=== PATIENT | female | born 1990 | race Caucasian/White ===

== ENCOUNTER → 2016-05-23 | Outpatient (CLI) | payer OTHER ==
[~2016-05-23] MED LIST: MULT-506 PO; NORGTAB50 PO
--- NOTE | 2016-05-23 13:30 | MAMMOGRAPHY REPORT ---
ULTRASOUND OF BOTH BREASTS: 05/23/2016 CLINICAL HISTORY: The patient reports a palpable left breast lump which feels smaller since when she first felt it approximately 2-3 weeks ago. She also felt a smaller right breast lump which is less prominent today. COMPARISON: No prior exams were available for comparison. TECHNIQUE: Real-time targeted ultrasound of both breasts was performed. FINDINGS: Real-time, high resolution targeted ultrasound was performed of the area of the palpable lump pointe d out by the patient, in the left breast at 2 to 3:00 subareolar region. At the site of the palpabl e lump there is a superficially located oval hypoechoic circumscribed parallel mass which measures 8 x 3 x 7 mm. The differential includes a fibroadenoma versus a complicated cyst. Targeted ultrasound was also performed of the area of the palpable lump in the right 6:00 subareolar region. Multiple normal-sized ducts are seen in this region, with no suspicious masses or other rodriguez spicious sonographic abnormalities evident. IMPRESSION: ACR BI-RADS CATEGORY 4A: LOW SUSPICION FOR MALIGNANCY - FOLLOW-UP RECOMMENDED 1. Oval hypoechoic 8 mm mass at the site of the palpable left breast lump, in the 2 to 3:00 subareo lar region. The patient reports that the lump feels smaller in size than when she first felt it. T he differential includes a complicated cyst versus a solid mass such as a fibroadenoma. Recommend u ltrasound-guided core needle biopsy for further evaluation; this could be scheduled after a short fo llow-up of 2-4 weeks to see if the mass decreases in size or resolves, given that the patient felt t hat it was decreasing in size. 2. No suspicious sonographic abnormality at the site of the palpable right breast lump. Recommend clinical follow-up. A phone call was made to the physician's office to confirm faxed results were received. The patient was verbally notified of the results. She tentatively scheduled the biopsy before leaving the depa rtment. Shelly Santana M.D. ah/:05/23/2016 09:45:41 Attending Technologist: Dilma Kim RT(R)(M), [facility] Retouching Operator: Shelly Santana MD, [facility] letter sent: Abnormal 4/5 BI-RADS Code: ACR BI-RADS Category 4A: Low Suspicion For Malignancy
== END | disposition home or self-care (01) ==
LOC: C.MAMM 08:44
PROVIDERS: ATTEND Obstetrics & Gynecology
DX: N63 Unspecified lump in breast (principal)

== ENCOUNTER → 2016-06-24 | Outpatient (CLI) | payer OTHER ==
--- NOTE | 2016-06-24 10:53 | Discharge Instructions ---
Discharge Instructions Procedure Procedure Date: Jun 24, 2016. Reason for visit: Left Mass. Discharge Discharge Date: Jun 24, 2016. Discharge Diagnosis: post left breast ultrasound guided core biopsy Instructions Activity Recommendations: Additional Limitations (see below) Return to School/Work: no limitations Recommended Home Diet: No Limitations Provider Instructions: ACTIVITY RECOMMENDATIONS: * No lifting, pushing, pulling or exercising the affected side for three days. RETURN TO SCHOOL/WORK: * You may return to work/school after the procedure, but do not perform any strenuous activities for 24 to 48 hours. MEDICATIONS: * Tylenol (two 325 mg) every four to six hours if needed for mild pain (if not allergic to Tylenol). DIET: * Resume previous diet. SPECIAL CARE INSTRUCTIONS: * Keep biopsy site dry for 24 hours. May shower after 24 hours, but do not soak (bathe) incision. * May remove Tegaderm (plastic patch) tomorrow AFTER showering. * Leave the steri-strips on for one week. Allow the steri-strips to fall off by themselves. If not off after one week, you may remove them. You may place a Bandaid crosswise over the strips, if desired. * Apply ice 10 minutes on and 10 minutes off as needed. * Wear a bra at bedtime to sleep more comfortably for 2-3 days. * Your referring physician should have the results after approximately 5 to 7 business days. * Call for unusual bleeding, fever, drainage, etc or if you have any questions call [phone] during normal business hours or after hours call Dr Mosley, . FOLLOW UP VISIT: Follow-up with Referring Physician as scheduled. Allergies Coded Allergies: No Known Allergies (Unverified , 04/26/14) Rick Patel Recommendations: Call your doctor if: * Temperature above 101 degrees * Pain not relieved by pain medicine ordered * There is increased drainage or redness from any incision * You have any unanswered questions or concerns. Your Doctors Instructions noted above were prepared by provider Adriana Mosley. Patient Signature Section: Patient Instructions Signature Page Romelia Deng Patient (or Guardian) Signature/Date: I have read and understand the instructions given to me by my caregivers. Caregiver/RN/Doctor Signature/Date: The above-named patient and/or guardian has received patient instructions on this date. + Original Patient Signature Page (only) stays with chart. Please make copy for patient.
--- NOTE | 2016-06-26 08:05 | MAMMOGRAPHY REPORT ---
ULTRASOUND GUIDED BIOPSY LEFT BREAST: 06/24/2016 CLINICAL HISTORY: Solid appearing palpable mass in the 2:00 to 3:00 retroareolar left breast. Donna avendaño presents for repeat evaluation and possible ultrasound guided core biopsy. COMPARISON: Comparison is made to exam dated: 05/23/2016 ultrasound - [facility]. PATIENT CONSENT: The procedure, risks and benefits were discussed with the patient and informed writ ten consent was obtained. Specific risks to this procedure include: bleeding, infection, puncture of adjacent structure, nontarget biopsy, sampling error and medication reaction. PROCEDURE DESCRIPTION: First repeat targeted ultrasound was performed in the area of palpable concer n in the 2:00 to 3:00 retroareolar left breast in the area of palpable lump pointed out by the patie nt. A solid hypoechoic lobulated circumscribed mass is again identified. It measures 7.8 x 3.8 x 7 .4 mm, and has not significantly changed in size comparing to the prior measurements which were 8.4 x 3.0 x 7.2 mm. Therefore plan to proceed with ultrasound-guided core needle biopsy. A time out was performed and the left breast was agreed as the site of biopsy. The skin was prepped and draped in the usual sterile fashion. The solid palpable mass in the 2:00 periareolar subareolar left breast was chosen as the target for biopsy. Subcutaneous and intraparenchymal 1% buffered lidoc donovan without epinephrine was administered as local anesthesia. A skin incision was made. Through th e incision, 4 samples were taken with a 14 gauge Achieve biopsy device. Given the superficial/subde rmal location of the mass, the decision was made not to place a biopsy marker, particularly given th at it is also a palpable abnormality so the patient does not feel the biopsy marker clip under her s kin. Hemostasis was achieved after manual compression. The patient tolerated the procedure well and there was no immediate complication. She left the department in satisfactory condition. The sampl es were sent to the pathology department in an appropriately labeled container. Post procedure mammography was deferred given the patient's age. IMPRESSION: ULTRASOUND GUIDED BIOPSY Status post ultrasound guided core needle biopsy of a solid palpable subdermal mass in the 2:00 left breast. No biopsy marker clip was placed at the site. The patient will receive notification of the biopsy results from her referring physician. Adriana Mosley M.D. ay/:06/24/2016 11:47:23 Cartographic Technician: Dr. Adriana Mosley, [facility]
== END | disposition home or self-care (01) ==
LOC: C.MAMM 10:01
PROVIDERS: ATTEND Obstetrics & Gynecology
DX: D24.2 Benign neoplasm of left breast (principal)

== ENCOUNTER 2017-06-07 19:08 | Emergency (ER) | payer OTHER ==
[~2017-06-07] VITALS: Ht 165.1 cm; Wt 63.0 kg
[2017-06-07 19:13] VITALS: BP 137/87; TEMP 36.7; Ht 165.1 cm; Wt 63.0 kg
[2017-06-07] MEDS ORDERED: FMR25 PO (19:50)
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
[2017-06-07 20:48] VITALS: PULSE 106; O2SAT 97
== END 2017-06-07 20:49 | disposition home or self-care (01) ==
LOC: C.EDB 19:09 → C.EDD 20:49
DX: M54.2 Cervicalgia (principal); V87.8XXA Person injured in other specified noncollision transport accidents involving motor vehicle (traffic), initial encounter; Z83.6 Family history of other diseases of the respiratory system

== ENCOUNTER → 2017-08-08 | Outpatient (CLI) | payer OTHER ==
[~2017-08-08] MED LIST changes: +FMR25 PO; -NORGTAB50 PO
[2017-08-08 14:36] LABS: BASO % 0.4 %; BASO ABS # 0.02 K/uL (0-0.2); EOS % 2.9 %; EOS ABS # 0.16 K/uL (0-0.5); HEMATOCRIT 39.1 % (37-47); HEMOGLOBIN 13.4 g/dL (12.0-16.0); IG# 0.01 K/uL (0.00-0.02); LYMPH % 34.5 %; LYMPH ABS # 1.93 K/uL (1.2-3.4); MEAN CELL VOLUME 87.9 fL (80-100); MEAN CORPUSCULAR HEMOGLOBIN 30.1 pg (25-34); MEAN CORPUSCULAR HGB CONC 34.3 g/dl (32-36); MONO ABS # 0.39 K/uL (0.11-0.59); NEUT ABS # 3.09 K/uL (1.4-6.5); PLATELET COUNT 279 K/uL (130-400); RED CELL DISTRIBUTION WIDTH CV 12.6 % (11.5-14.5); RED CELL DISTRIBUTION WIDTH SD 40.6 fL (36.4-46.3)
[2017-08-08 14:54] LABS: ALBUMIN 4.2 gm/dl (3.4-5.0); ALT/SGPT 25 U/L (12-78); AST/SGOT 16 U/L (15-37); BLOOD UREA NITROGEN 14 mg/dl (7-18); CALCIUM 9.1 mg/dl (8.5-10.1); CARBON DIOXIDE 27 mmol/L (21-32); CREATININE 0.95 mg/dl (0.60-1.20); GLUCOSE 94 mg/dl (70-99); POTASSIUM 4.1 mmol/L (3.5-5.1); SODIUM 138 mmol/L (136-145)
[2017-08-08 15:04] LABS: ALKALINE PHOSPHATASE 57 U/L (45-117); TOTAL PROTEIN 8.1 gm/dl (6.4-8.2)
== END | disposition home or self-care (01) ==
LOC: C.LAB1850 13:38
PROVIDERS: ATTEND Physician Assistant
DX: R53.83 Other fatigue (principal); R51 Headache

== ENCOUNTER → 2017-08-13 | Outpatient (CLI) | payer OTHER ==
--- NOTE | 2017-08-13 10:09 | DIAGNOSTIC IMAGING REPORT ---
HYSTEROSALPINGOGRAM CLINICAL HISTORY: Infertility testing. COMPARISON STUDY: No priors. FINDINGS: Fluoroscopic assistance was provided to the electronics instructor in performing a hysterosalpingogram. The uterine cavity distends normally. No filling defects are identified. There is normal filling of the fallopian tubes, with free spillage of contrast into pelvis bilaterally. Fluoroscopy time: 0.3 minutes. IMPRESSION: Unremarkable hysterosalpingogram. The fallopian tubes are patent bilaterally. Electronically signed by: Chris Wright M.D. 08/13/2017 10:08 AM Dictated Date/Time: 08/13/2017 10:07 AM
--- NOTE | 2017-08-13 12:32 | OPERATIVE REPORT ---
DATE OF OPERATION: 08/13/2017 PREOPERATIVE DIAGNOSIS: Infertility. POSTOPERATIVE DIAGNOSIS: Infertility. PROCEDURE: Hysterosalpingogram. SURGEON: Macie Trinh MD. ANESTHESIA: None. ESTIMATED BLOOD LOSS: None. DESCRIPTION OF PROCEDURE: The patient was identified in the radiology suite. Verbally and by bracelet, was confirmed that she was having a hysterosalpingogram. She was not instructed to take preoperative antibiotics. Her last menstrual period was 12 days ago. She was placed in a frog-legged position on the radiology table. A speculum was placed. The cervix was cleansed with Betadine x3. It was grasped with an Allis. The introducer was placed into the cervix. The radiologist was called for. The dye was placed through the uterus and into the tubes until adequate pictures were taken, and the procedure was terminated. There was no bleeding. All instruments were removed from the vagina. The patient tolerated the procedure well and was discharged home. I attest to the content of the Intraoperative Record and any orders documented therein. Any exception s are noted below.
== END | disposition home or self-care (01) ==
LOC: C.RAD 09:09
PROVIDERS: ATTEND Obstetrics & Gynecology
DX: Z31.41 Encounter for fertility testing (principal)

== ENCOUNTER → 2017-09-01 | Outpatient (CLI) | payer OTHER ==
[2017-09-01 12:47] LABS: FOLLICLE STIMULAT HORMONE 8.76 IU/L; PROLACTIN 8.98 ng/mL
== END | disposition home or self-care (01) ==
LOC: C.LAB1850 11:11
PROVIDERS: ATTEND Obstetrics & Gynecology
DX: Z31.41 Encounter for fertility testing (principal); Z31.69 Encounter for other general counseling and advice on procreation

== ENCOUNTER → 2017-12-09 | Outpatient (CLI) | payer OTHER ==
[2017-12-09 17:32] LABS: HEMATOCRIT 39.7 % (37-47); HEMOGLOBIN 14.1 g/dL (12.0-16.0); MEAN CELL VOLUME 86.3 fL (80-100); MEAN CORPUSCULAR HEMOGLOBIN 30.7 pg (25-34); MEAN CORPUSCULAR HGB CONC 35.5 g/dl (32-36); MEAN PLATELET VOLUME 9.5 fL (7.4-10.4); PLATELET COUNT 289 K/uL (130-400); RED CELL DISTRIBUTION WIDTH CV 12.8 % (11.5-14.5); RED CELL DISTRIBUTION WIDTH SD 40.9 fL (36.4-46.3); WHITE BLOOD COUNT 7.35 K/uL (4.8-10.8)
[2017-12-09 18:40] LABS: HEP C IGG 13 YRS+OLDER_RFLX NEG (NEG)
== END | disposition home or self-care (01) ==
LOC: C.LAB1850 16:19
PROVIDERS: ATTEND Internal Medicine
DX: Z00.00 Encounter for general adult medical examination without abnormal findings (principal); Z11.3 Encounter for screening for infections with a predominantly sexual mode of transmission; Z11.4 Encounter for screening for human immunodeficiency virus [HIV]; Z11.59 Encounter for screening for other viral diseases; Z13.0 Encounter for screening for diseases of the blood and blood-forming organs and certain disorders involving the immune mechanism

== ENCOUNTER 2018-09-23 22:06 | Inpatient (IN) ==
[2018-09-23] MEDS ORDERED: OXYTOCIN 30 UNITS/500 ML BAG IV PRN (22:41)
--- NOTE | 2018-09-23 22:44 | History & Physical Report ---
Date of Service September 23, 2018 Assessment & Plan (1) PROM (premature rupture of membranes): 28yo G1 at 38.3 weeks GA. PROM. Discussed starting augmentation and a few hour to see if labor would start spontaneously. Will start pitocin if cervix is unchanged on next exam 1. Fetus: Cat 1 2. Labor: Will start oxytocin if cervix unchanged at next exam. 3. GBS+: PCN 4: Vitals: wnl History of Present Illness Primary Care Provider: Alondra Escoto MD 28yo at 38.3 weeks GA. Patient present with PROM. Occasional contraction, No VB. Good FM. complicated by GBS+. Allergies Allergy/AdvReac Type Severity Reaction Status Date / Time No Known Allergies Allergy Verified 09/23/18 22:30 Home Medications Home Medications Medication Instructions Recorded Confirmed Type Vitamin 1 tab PO DAILY 09/23/18 09/23/18 History Patient History Social History Preferred Language: [place] Communication Ability: Effective Beliefs That Will Affect Care: None marital status: Current Living Situation: Spouse Other Information That Helps Us Care for You: No Feels Safe at Home: Yes Safety Concerns: Feels Safe At This Time Smoking Status: Never smoker Hx Alcohol Use: No Hx Substance Use: No Physical Exam Gastrointestinal (Abdomen): Percussion/Palpation: abdomen soft; abdomen nontender Genitourinary: OB Exam Abdomen: + vertex Manual OB Exam: + cervical dilat ion fingertip, + cervical effacement 20%, + station high and + amniotic fluid clear OB Exam Monitor Tracing: + external uterine monitor used, + intra- uterine pressure catheter used and + category I Results & Data Vital Signs (Past 12 Hours) Vital Signs Temp Pulse Resp BP 09/23/18 22:21 95 H 136/87 09/23/18 22:18 36.7 C 90 18 137/85 09/23/18 22:16 90 137/85
[2018-09-23] MEDS ORDERED: PENICILLIN G POTASSIUM 6 MU in DEXTROSE 5% 250 ML IV ONE (22:45)
[2018-09-23 23:03] LABS: Hematocrit (blood only) 34.7 % (37-47); Hemoglobin 12.6 g/dL (12.0-16.0); Mean Corpuscular Volume 86.5 fL (80-100); Mean Platelet Volume 9.6 fL (7.4-10.4); Platelet Count 208 K/uL (130-400); RDW Coefficient of Variation 12.2 % (11.5-14.5); RDW Standard Deviation 38.1 fL (36.4-46.3); Red Blood Count 4.01 M/uL (4.2-5.4); White Blood Count 12.57 K/uL (4.8-10.8)
[2018-09-23 23:11] LABS: Mean Corpuscular Hgb Conc 36.3 g/dL (32-36)
[2018-09-24] MEDS: PENICILLIN G POTASSIUM 3 MU in DEXTROSE 5% 100 ML IV PRN ×4 (04:28→19:48)
[2018-09-24] MEDS: OXYTOCIN 30 UNITS/500 ML BAG IV PRN (05:09)
[2018-09-24] MEDS: LACTATED RINGER'S 1,000 ML IV PRN ×3 (05:32→18:10)
[2018-09-24] MEDS ORDERED: ACETAMINOPHEN 325 MG TAB PO STA (12:02)
[2018-09-24] MEDS ORDERED: BUPIVACAINE 0.25% 30 ML VIAL ONE (16:06)
[2018-09-24] MEDS ORDERED: fentaNYL 2MCG/ML ROPIV 1.25MG/ML 100 ML BAG EPI ONE (16:07)
[2018-09-24] MEDS ORDERED: ePHEDrine sulfate 50 MG/ML AMP ONE (16:07)
[2018-09-24] MEDS ORDERED: fentaNYL citrate 100 MCG/2 ML VIAL ONE (16:07)
--- NOTE | 2018-09-24 16:10 | Anesthesiology Consultation ---
Date of Service September 24, 2018 Assessment & Plan Chart Review Chart Review: Acceptable Risk for Labor Epidural Consults Requested none History Height/Weight Height: 5 ft 6 in Weight: 74.843 kg Allergies Allergy/AdvReac Type Severity Reaction Status Date / Time No Known Allergies Allergy Verified 09/23/18 22:30 Medications Home Medications Medication Instructions Recorded Confirmed Last Taken Vitamin 1 tab PO DAILY 09/23/18 09/23/18 09/23/18 Active Medications Generic Name Dose Route Start Last Admin Trade Name Freq PRN Reason Stop Dose Admin Lactated Ringer's 1,000 mls @ 125 mls/hr 09/23/18 22:41 09/24/18 15:11 Lr IV 09/25/18 22:40 0 mls/hr .Q8H PRN Infusion L&D Protocol Protocol Penicillin G Potassium 3 mu/ 106 mls @ 100 mls/hr 09/23/18 22:41 09/24/18 15:10 Dextrose IV 10/03/18 22:40 100 mls/hr Q4H PRN Administration Give until delivery Oxytocin 30 units in 500 mls @ 20 mls/hr 09/23/18 23:38 09/24/18 10:27 Pitocin IV 09/25/18 23:37 1.2 units/hr .Q24H PRN 20 mls/hr Labor Induction/Augmentation Titration Protocol 1.2 UNITS/HR Social History Smoking Status: Never smoker Hx Alcohol Use: No Hx Substance Use: No Physical Exam Vital Signs Last Vital Signs Temp 36.5 C 09/24/18 15:01 Pulse 66 09/24/18 14:59 Resp 18 09/24/18 15:01 BP 139/85 09/24/18 14:59
[2018-09-24] MEDS ORDERED: ePHEDrine sulfate 50 MG/ML AMP IV PRN (16:11)
[2018-09-24] MEDS ORDERED: NALOXONE HCL 0.4 MG/1 ML VIAL/CARP IV PRN (16:11)
[2018-09-24] MEDS ORDERED: NALOXONE HCL 1 MG in SODIUM CHLORIDE 0.9% 1000ML 1,000 ML IV PRN (16:11)
[2018-09-24] MEDS ORDERED: NALBUPHINE HCL INJ 10 MG/ML AMP IV PRN (16:11)
[2018-09-24] MEDS ORDERED: DiphenhydrAMINE HCL 50 MG/ML VIAL IV PRN (16:11)
--- NOTE | 2018-09-24 16:21 | Labor Progress Brief Note ---
Date of Service September 24, 2018 Subjective Finally feeling enough pain that she would like an epidural. Has been breathing through contractions; seem much more intense now. Assessment & Plan (1) PROM (premature rupture of membranes): GBS prophy 3 doses already given. Pit @ 20 with Q2min pattern, change now occurring, and pt wants epidural. Will get that placed, then if no further change can use IUPC to check for possibility of needing more pit. PROM onset of labor timing: onset of labor within 24 hours of rupture PROM gestational age: full term Qualified Code(s): O42.02 - Full-term premature rupture of membranes, onset of labor within 24 hours of rupture Physical Exam Physical Exam: FHT Cat 1 [place] Q2min Cvx 3/-2 (finally able to get a truly good exam; pt tolerance and very posterior cervix were limiting until now. Cervix midposition and reachable with fists under pt hips). Pit remains at 20 without IUPC. Results & Data Vital Signs (Past 12 Hours) Vital Signs Temp Pulse Resp BP 09/24/18 15:01 36.5 C 18 09/24/18 14:59 66 139/85 09/24/18 14:08 74 137/87 09/24/18 14:06 36.4 C L 22 09/24/18 11:44 36.5 C 22 09/24/18 11:43 73 131/75 09/24/18 10:32 80 133/83 09/24/18 09:34 36.5 C 18 09/24/18 08:23 90 125/82 09/24/18 07:13 36.5 C 83 20 131/83 09/24/18 06:00 36.7 C 18
--- NOTE | 2018-09-24 21:31 | Labor Progress Brief Note ---
Date of Service September 24, 2018 Subjective Has epidural. Still having L pelvic pain with contractions. Assessment & Plan (1) PROM (premature rupture of membranes): GBS pos, PROM x24 hours, finally making some cervical change. Has been on 20mu/min pit most of today. Some labial edema noted and discussed with patient that her progress has been slow, and ongoing pain / labial edema does give me some concern for CPD. At this time wishes to continue with current management. PROM onset of labor timing: onset of labor within 24 hours of rupture PROM gestational age: full term Qualified Code(s): O42.02 - Full-term premature rupture of membranes, onset of labor within 24 hours of rupture Present on Admission?: Yes Physical Exam Physical Exam: FHT Cat 1 [place] Q2 MVU adequate (200-250 goal) Cvx 4-5/90/-2 Results & Data Vital Signs (Past 12 Hours) Vital Signs Temp Pulse Resp BP Pulse Ox 09/24/18 21:28 81 92 09/24/18 21:25 83 99 09/24/18 21:20 87 113/66 96 09/24/18 21:18 73 92 09/24/18 21:15 77 96 09/24/18 21:10 76 96 09/24/18 21:09 78 93 09/24/18 21:05 65 98 09/24/18 21:04 80 123/77 93 09/24/18 21:03 36.5 C 18 09/24/18 21:00 86 95 09/24/18 20:55 90 96 09/24/18 20:50 80 96 09/24/18 20:49 76 121/72 93 09/24/18 20:45 74 97 09/24/18 20:40 78 97 09/24/18 20:35 88 95 09/24/18 20:34 84 87 L 09/24/18 20:30 86 97 09/24/18 20:25 79 97 09/24/18 20:20 78 118/78 97 09/24/18 20:15 79 97 09/24/18 20:10 86 97 09/24/18 20:05 80 120/74 94 09/24/18 20:00 85 97 09/24/18 19:55 85 97 09/24/18 19:50 74 97 09/24/18 19:49 75 135/73 09/24/18 19:45 77 97 09/24/18 19:42 86 93 09/24/18 19:40 93 H 97 09/24/18 19:37 84 91 09/24/18 19:35 78 120/81 97 09/24/18 19:30 77 98 09/24/18 19:25 94 H 98 09/24/18 19:20 114 H 97 09/24/18 19:19 73 134/79 09/24/18 19:15 72 98 09/24/18 19:14 36.5 C 09/24/18 19:10 80 99 09/24/18 19:05 83 156/87 H 98 09/24/18 19:00 66 18 99 09/24/18 18:55 73 100 09/24/18 18:51 69 93 09/24/18 18:50 69 94 09/24/18 18:49 69 106/61 09/24/18 18:45 62 96 09/24/18 18:40 69 97 09/24/18 18:35 67 99 09/24/18 18:34 64 103/62 09/24/18 18:30 64 98 09/24/18 18:25 62 97 09/24/18 18:21 65 101/65 09/24/18 18:20 63 97 09/24/18 18:15 68 98 09/24/18 18:10 78 98 09/24/18 18:09 84 93 09/24/18 18:05 88 99 09/24/18 18:04 80 133/78 09/24/18 18:00 83 18 98 09/24/18 17:55 72 98 09/24/18 17:50 84 99 09/24/18 17:49 74 117/70 09/24/18 17:45 81 98 09/24/18 17:40 75 98 09/24/18 17:35 79 121/75 98 09/24/18 17:31 78 92 09/24/18 17:30 18 09/24/18 17:29 80 98 09/24/18 17:24 97 H 98 09/24/18 17:19 80 118/74 98 09/24/18 17:14 84 98 09/24/18 17:09 72 98 09/24/18 17:05 76 117/66 09/24/18 17:04 73 98 06/06/19 17:02 36.6 C 09/24/18 17:00 18 09/24/18 16:59 69 98 09/24/18 16:54 73 99 09/24/18 16:49 72 98 09/24/18 16:48 80 117/67 09/24/18 16:44 88 98 09/24/18 16:41 77 109/64 09/24/18 16:39 81 112/67 97 09/24/18 16:37 85 112/61 09/24/18 16:35 75 111/66 09/24/18 16:34 78 111/71 96 09/24/18 16:31 85 125/62 09/24/18 16:29 80 127/63 96 09/24/18 16:27 81 143/83 H 09/24/18 16:25 63 135/77 09/24/18 16:24 84 95 09/24/18 16:23 71 128/72 09/24/18 15:01 36.5 C 18 09/24/18 14:59 66 139/85 09/24/18 14:08 74 137/87 09/24/18 14:06 36.4 C L 22 09/24/18 11:44 36.5 C 22 09/24/18 11:43 73 131/75 09/24/18 10:32 80 133/83 09/24/18 09:34 36.5 C 18
[2018-09-24] MEDS: fentaNYL 2MCG/ML ROPIV 1.25MG/ML 100 ML BAG EPI PRN (23:07)
[2018-09-25] MEDS: PENICILLIN G POTASSIUM 3 MU in DEXTROSE 5% 100 ML IV PRN ×6 (00:32→21:33)
[2018-09-25] MEDS: LACTATED RINGER'S 1,000 ML IV PRN ×3 (03:56→22:27)
--- NOTE | 2018-09-25 04:21 | Labor Progress Brief Note ---
Date of Service September 25, 2018 Subjective Comfortable with epidural Assessment & Plan (1) PROM (premature rupture of membranes): Patient with minimal cervical change noted. Needs titration upwards to goal of 200-250 MVU. Order written to allow pit to 40 if needed. Patient counseled that progress remains slow and high doses of pit / long time from ROM continue to be concerns. Patient wishes to continue attempt of vaginal delivery. PROM onset of labor timing: onset of labor within 24 hours of rupture PROM gestational age: full term Qualified Code(s): O42.02 - Full-term premature rupture of membranes, onset of labor within 24 hours of rupture Present on Admission?: Yes Physical Exam Physical Exam: FHT 150 mod belle +acc +subtle early mar. [place] Q3m MVU currently not adequate, pit remains at 20. Had been adequate at 20mu/min when IUPC first placed. Goal 200-250 MVU. Cvx with change to 7/100/0 LOF continues clear with small bloody show Results & Data Vital Signs (Past 12 Hours) Vital Signs Temp Pulse Resp BP Pulse Ox 09/25/18 04:16 77 94 09/25/18 04:12 74 94 09/25/18 04:11 80 95 09/25/18 04:07 73 94 09/25/18 04:06 77 95 09/25/18 04:04 78 105/56 L 09/25/18 04:01 95 H 95 09/25/18 03:56 81 96 09/25/18 03:55 36.9 C 89 18 94 09/25/18 03:51 80 95 09/25/18 03:49 74 114/62 94 09/25/18 03:46 76 95 09/25/18 03:44 73 94 09/25/18 03:41 73 95 09/25/18 03:36 75 95 09/25/18 03:35 85 110/64 94 09/25/18 03:31 86 96 09/25/18 03:26 91 H 96 09/25/18 03:21 86 94 09/25/18 03:20 84 122/75 94 09/25/18 03:16 83 94 09/25/18 03:13 84 94 09/25/18 03:11 86 96 09/25/18 03:06 90 95 09/25/18 03:04 92 H 129/65 09/25/18 03:01 82 95 09/25/18 02:59 88 94 09/25/18 02:56 85 95 09/25/18 02:52 81 94 09/25/18 02:51 82 95 09/25/18 02:49 96 H 124/62 09/25/18 02:46 91 H 96 09/25/18 02:45 90 94 09/25/18 02:41 118 H 96 09/25/18 02:36 98 H 95 09/25/18 02:35 109 H 16 135/60 09/25/18 02:31 83 94 09/25/18 02:26 76 94 09/25/18 02:21 75 94 09/25/18 02:20 76 94 09/25/18 02:19 90 103/57 L 09/25/18 02:16 80 95 09/25/18 02:15 84 94 09/25/18 02:11 83 95 09/25/18 02:10 78 94 09/25/18 02:06 80 95 09/25/18 02:05 84 107/55 L 09/25/18 02:03 73 94 09/25/18 02:01 76 95 09/25/18 01:56 36.7 C 86 16 96 09/25/18 01:51 85 95 09/25/18 01:50 86 94 09/25/18 01:49 85 110/63 09/25/18 01:46 77 94 09/25/18 01:43 80 94 09/25/18 01:41 92 H 94 09/25/18 01:37 82 94 09/25/18 01:36 78 95 09/25/18 01:34 87 16 120/68 09/25/18 01:31 92 H 94 09/25/18 01:26 81 94 09/25/18 01:25 89 94 09/25/18 01:21 92 H 94 09/25/18 01:19 83 112/65 94 09/25/18 01:16 91 H 95 09/25/18 01:14 81 94 09/25/18 01:11 93 H 95 09/25/18 01:08 79 94 09/25/18 01:06 107 H 96 09/25/18 01:04 96 H 18 135/79 09/25/18 01:01 84 95 09/25/18 00:56 98 H 95 09/25/18 00:51 76 95 09/25/18 00:49 76 98/57 L 93 09/25/18 00:46 69 95 09/25/18 00:41 73 95 09/25/18 00:36 74 94 09/25/18 00:34 36.6 C 89 16 106/59 L 09/25/18 00:31 81 96 09/25/18 00:26 73 95 09/25/18 00:21 72 96 09/25/18 00:19 74 105/59 L 09/25/18 00:16 72 96 09/25/18 00:11 76 97 09/25/18 00:06 77 96 09/25/18 00:05 77 16 105/56 L 09/25/18 00:04 91 H 93 09/25/18 00:01 76 95 09/24/18 23:56 70 96 09/24/18 23:51 86 97 09/24/18 23:50 82 109/53 L 09/24/18 23:48 84 93 09/24/18 23:46 78 97 09/24/18 23:41 75 97 09/24/18 23:36 101 H 97 09/24/18 23:35 116 H 18 115/71 09/24/18 23:31 99 H 97 09/24/18 23:29 94 H 94 09/24/18 23:26 82 99 09/24/18 23:21 105 H 99 09/24/18 23:20 83 93 09/24/18 23:19 36.6 C 105 H 16 113/74 09/24/18 23:15 87 97 09/24/18 23:10 98 H 95 09/24/18 23:05 96 H 96 09/24/18 23:04 88 121/76 09/24/18 23:00 75 18 96 09/24/18 22:55 72 95 09/24/18 22:50 64 96 09/24/18 22:49 77 126/77 09/24/18 22:45 72 96 09/24/18 22:40 73 96 09/24/18 22:35 73 95 09/24/18 22:34 81 120/74 09/24/18 22:30 68 18 96 09/24/18 22:25 67 96 09/24/18 22:20 79 96 09/24/18 22:19 76 135/77 09/24/18 22:15 95 H 98 09/24/18 22:10 75 96 09/24/18 22:05 65 110/61 97 09/24/18 22:00 65 97 09/24/18 21:55 73 95 09/24/18 21:50 70 108/60 96 09/24/18 21:45 71 99 09/24/18 21:40 74 97 09/24/18 21:35 74 96 09/24/18 21:34 71 107/60 09/24/18 21:30 81 18 97 09/24/18 21:28 81 92 09/24/18 21:25 83 99 09/24/18 21:20 87 113/66 96 09/24/18 21:18 73 92 09/24/18 21:15 77 96 09/24/18 21:10 76 96 09/24/18 21:09 78 93 09/24/18 21:05 65 98 09/24/18 21:04 80 123/77 93 09/24/18 21:03 36.5 C 18 09/24/18 21:00 86 95 09/24/18 20:55 90 96 09/24/18 20:50 80 96 09/24/18 20:49 76 121/72 93 09/24/18 20:45 74 97 09/24/18 20:40 78 97 09/24/18 20:35 88 95 09/24/18 20:34 84 87 L 09/24/18 20:30 86 97 09/24/18 20:25 79 97 09/24/18 20:20 78 118/78 97 09/24/18 20:15 79 97 09/24/18 20:10 86 97 09/24/18 20:05 80 120/74 94 09/24/18 20:00 85 97 09/24/18 19:55 85 97 09/24/18 19:50 74 97 09/24/18 19:49 75 135/73 09/24/18 19:45 77 97 09/24/18 19:42 86 93 09/24/18 19:40 93 H 97 09/24/18 19:37 84 91 09/24/18 19:35 78 120/81 97 09/24/18 19:30 77 98 06/06/19 19:25 94 H 98 09/24/18 19:20 114 H 97 09/24/18 19:19 73 134/79 09/24/18 19:15 72 98 09/24/18 19:14 36.5 C 09/24/18 19:10 80 99 09/24/18 19:05 83 156/87 H 98 09/24/18 19:00 66 18 99 09/24/18 18:55 73 100 09/24/18 18:51 69 93 09/24/18 18:50 69 94 09/24/18 18:49 69 106/61 09/24/18 18:45 62 96 09/24/18 18:40 69 97 09/24/18 18:35 67 99 09/24/18 18:34 64 103/62 09/24/18 18:30 64 98 09/24/18 18:25 62 97 09/24/18 18:21 65 101/65 09/24/18 18:20 63 97 09/24/18 18:15 68 98 09/24/18 18:10 78 98 09/24/18 18:09 84 93 09/24/18 18:05 88 99 09/24/18 18:04 80 133/78 09/24/18 18:00 83 18 98 09/24/18 17:55 72 98 09/24/18 17:50 84 99 09/24/18 17:49 74 117/70 09/24/18 17:45 81 98 09/24/18 17:40 75 98 09/24/18 17:35 79 121/75 98 09/24/18 17:31 78 92 09/24/18 17:30 18 09/24/18 17:29 80 98 09/24/18 17:24 97 H 98 09/24/18 17:19 80 118/74 98 09/24/18 17:14 84 98 09/24/18 17:09 72 98 09/24/18 17:05 76 117/66 09/24/18 17:04 73 98 09/24/18 17:02 36.6 C 09/24/18 17:00 18 09/24/18 16:59 69 98 09/24/18 16:54 73 99 09/24/18 16:49 72 98 09/24/18 16:48 80 117/67 09/24/18 16:44 88 98 09/24/18 16:41 77 109/64 09/24/18 16:39 81 112/67 97 09/24/18 16:37 85 112/61 09/24/18 16:35 75 111/66 09/24/18 16:34 78 111/71 96 09/24/18 16:31 85 125/62 09/24/18 16:29 80 127/63 96 09/24/18 16:27 81 143/83 H 09/24/18 16:25 63 135/77 09/24/18 16:24 84 95 09/24/18 16:23 71 128/72
[2018-09-25] MEDS: OXYTOCIN 30 UNITS/500 ML BAG IV PRN (05:02)
[2018-09-25] MEDS: fentaNYL 2MCG/ML ROPIV 1.25MG/ML 100 ML BAG EPI PRN ×2 (05:38→12:12)
--- NOTE | 2018-09-25 06:39 | Labor Progress Brief Note ---
Date of Service September 25, 2018 Subjective Comfortable with epidural. A bit more pressure, relieved with pushing epidural button. Assessment & Plan (1) PROM (premature rupture of membranes): Again discussed with patient the risks vs benefits of continuing given prolonged ROM, high doses of pitocin, slow change. status still reassuring and change is noted again. Patient wishes to continue current course. PROM onset of labor timing: onset of labor within 24 hours of rupture PROM gestational age: full term Qualified Code(s): O42.02 - Full-term premature rupture of membranes, onset of labor within 24 hours of rupture Present on Admission?: Yes Physical Exam Physical Exam: FHT 145 mod belle +acc -dec [place] Q3-4 with MVU adequate now. Pit @ 26. Cvx with change to 8/100/+1 now LOF clear, bloody show, VSS noted. Results & Data Vital Signs (Past 12 Hours) Vital Signs Temp Pulse Resp BP Pulse Ox 09/25/18 06:31 108 H 96 09/25/18 06:27 100 H 16 123/79 09/25/18 06:26 82 95 09/25/18 06:21 92 H 97 09/25/18 06:19 71 89 L 09/25/18 06:16 77 96 09/25/18 06:13 92 H 124/70 09/25/18 06:11 108 H 96 09/25/18 06:06 103 H 97 09/25/18 06:01 79 96 09/25/18 05:59 83 18 128/59 L 09/25/18 05:56 84 96 09/25/18 05:54 36.8 C 18 09/25/18 05:51 73 96 09/25/18 05:46 90 96 09/25/18 05:42 80 110/59 L 09/25/18 05:41 77 96 09/25/18 05:36 75 96 09/25/18 05:31 83 96 09/25/18 05:27 75 111/56 L 09/25/18 05:26 70 95 09/25/18 05:21 90 95 09/25/18 05:16 81 95 09/25/18 05:15 88 16 128/78 09/25/18 05:11 94 H 97 09/25/18 05:06 86 97 09/25/18 05:01 92 H 96 09/25/18 04:57 85 16 117/70 09/25/18 04:56 103 H 95 09/25/18 04:51 36.9 C 93 H 16 96 09/25/18 04:47 78 94 09/25/18 04:46 74 95 09/25/18 04:41 72 95 09/25/18 04:38 72 94 09/25/18 04:36 79 94 09/25/18 04:35 75 109/56 L 09/25/18 04:33 75 94 09/25/18 04:31 75 94 09/25/18 04:26 75 94 09/25/18 04:21 79 94 09/25/18 04:20 77 16 112/58 L 94 09/25/18 04:16 77 94 09/25/18 04:12 74 94 09/25/18 04:11 80 95 09/25/18 04:07 73 94 09/25/18 04:06 77 95 09/25/18 04:04 78 105/56 L 09/25/18 04:01 95 H 95 09/25/18 03:56 81 96 09/25/18 03:55 36.9 C 89 18 94 09/25/18 03:51 80 95 09/25/18 03:49 74 114/62 94 09/25/18 03:46 76 95 09/25/18 03:44 73 94 09/25/18 03:41 73 95 09/25/18 03:36 75 95 09/25/18 03:35 85 110/64 94 09/25/18 03:31 86 96 09/25/18 03:26 91 H 96 09/25/18 03:21 86 94 09/25/18 03:20 84 122/75 94 09/25/18 03:16 83 94 09/25/18 03:13 84 94 09/25/18 03:11 86 96 09/25/18 03:06 90 95 09/25/18 03:04 92 H 129/65 09/25/18 03:01 82 95 09/25/18 02:59 88 94 09/25/18 02:56 85 95 09/25/18 02:52 81 94 09/25/18 02:51 82 95 09/25/18 02:49 96 H 124/62 06 02:46 91 H 96 06/07/19 02:45 90 94 09/25/18 02:41 118 H 96 09/25/18 02:36 98 H 95 09/25/18 02:35 109 H 16 135/60 09/25/18 02:31 83 94 09/25/18 02:26 76 94 09/25/18 02:21 75 94 09/25/18 02:20 76 94 09/25/18 02:19 90 103/57 L 09/25/18 02:16 80 95 09/25/18 02:15 84 94 09/25/18 02:11 83 95 09/25/18 02:10 78 94 09/25/18 02:06 80 95 09/25/18 02:05 84 107/55 L 09/25/18 02:03 73 94 09/25/18 02:01 76 95 09/25/18 01:56 36.7 C 86 16 96 09/25/18 01:51 85 95 09/25/18 01:50 86 94 09/25/18 01:49 85 110/63 09/25/18 01:46 77 94 09/25/18 01:43 80 94 09/25/18 01:41 92 H 94 09/25/18 01:37 82 94 09/25/18 01:36 78 95 09/25/18 01:34 87 16 120/68 09/25/18 01:31 92 H 94 09/25/18 01:26 81 94 09/25/18 01:25 89 94 09/25/18 01:21 92 H 94 09/25/18 01:19 83 112/65 94 09/25/18 01:16 91 H 95 09/25/18 01:14 81 94 09/25/18 01:11 93 H 95 09/25/18 01:08 79 94 09/25/18 01:06 107 H 96 09/25/18 01:04 96 H 18 135/79 09/25/18 01:01 84 95 09/25/18 00:56 98 H 95 09/25/18 00:51 76 95 09/25/18 00:49 76 98/57 L 93 09/25/18 00:46 69 95 09/25/18 00:41 73 95 09/25/18 00:36 74 94 09/25/18 00:34 36.6 C 89 16 106/59 L 09/25/18 00:31 81 96 09/25/18 00:26 73 95 09/25/18 00:21 72 96 09/25/18 00:19 74 105/59 L 09/25/18 00:16 72 96 09/25/18 00:11 76 97 09/25/18 00:06 77 96 09/25/18 00:05 77 16 105/56 L 09/25/18 00:04 91 H 93 09/25/18 00:01 76 95 09/24/18 23:56 70 96 09/24/18 23:51 86 97 09/24/18 23:50 82 109/53 L 09/24/18 23:48 84 93 09/24/18 23:46 78 97 09/24/18 23:41 75 97 09/24/18 23:36 101 H 97 09/24/18 23:35 116 H 18 115/71 09/24/18 23:31 99 H 97 09/24/18 23:29 94 H 94 09/24/18 23:26 82 99 09/24/18 23:21 105 H 99 09/24/18 23:20 83 93 09/24/18 23:19 36.6 C 105 H 16 113/74 09/24/18 23:15 87 97 09/24/18 23:10 98 H 95 09/24/18 23:05 96 H 96 09/24/18 23:04 88 121/76 09/24/18 23:00 75 18 96 09/24/18 22:55 72 95 09/24/18 22:50 64 96 09/24/18 22:49 77 126/77 09/24/18 22:45 72 96 09/24/18 22:40 73 96 09/24/18 22:35 73 95 09/24/18 22:34 81 120/74 09/24/18 22:30 68 18 96 09/24/18 22:25 67 96 09/24/18 22:20 79 96 09/24/18 22:19 76 135/77 09/24/18 22:15 95 H 98 09/24/18 22:10 75 96 09/24/18 22:05 65 110/61 97 09/24/18 22:00 65 97 09/24/18 21:55 73 95 09/24/18 21:50 70 108/60 96 09/24/18 21:45 71 99 09/24/18 21:40 74 97 09/24/18 21:35 74 96 09/24/18 21:34 71 107/60 09/24/18 21:30 81 18 97 09/24/18 21:28 81 92 09/24/18 21:25 83 99 09/24/18 21:20 87 113/66 96 09/24/18 21:18 73 92 09/24/18 21:15 77 96 09/24/18 21:10 76 96 09/24/18 21:09 78 93 09/24/18 21:05 65 98 09/24/18 21:04 80 123/77 93 09/24/18 21:03 36.5 C 18 09/24/18 21:00 86 95 09/24/18 20:55 90 96 09/24/18 20:50 80 96 09/24/18 20:49 76 121/72 93 09/24/18 20:45 74 97 09/24/18 20:40 78 97 09/24/18 20:35 88 95 09/24/18 20:34 84 87 L 09/24/18 20:30 86 97 09/24/18 20:25 79 97 09/24/18 20:20 78 118/78 97 09/24/18 20:15 79 97 09/24/18 20:10 86 97 09/24/18 20:05 80 120/74 94 09/24/18 20:00 85 97 09/24/18 19:55 85 97 09/24/18 19:50 74 97 09/24/18 19:49 75 135/73 09/24/18 19:45 77 97 09/24/18 19:42 86 93 09/24/18 19:40 93 H 97 09/24/18 19:37 84 91 09/24/18 19:35 78 120/81 97 09/24/18 19:30 77 98 09/24/18 19:25 94 H 98 09/24/18 19:20 114 H 97 09/24/18 19:19 73 134/79 09/24/18 19:15 72 98 09/24/18 19:14 36.5 C 09/24/18 19:10 80 99 09/24/18 19:05 83 156/87 H 98 09/24/18 19:00 66 18 99 09/24/18 18:55 73 100 09/24/18 18:51 69 93 09/24/18 18:50 69 94 09/24/18 18:49 69 106/61 09/24/18 18:45 62 96 09/24/18 18:40 69 97
--- NOTE | 2018-09-25 07:30 | Labor Progress Brief Note ---
Date of Service September 25, 2018 Subjective comfortable Assessment & Plan (1) PROM (premature rupture of membranes): My exam is slightly different that dr. Carter. Contractions have been just recently adequate. Will continue to try to keep adequate. Expressed my concern about how the labor is going. fetus category one. PROM onset of labor timing: onset of labor within 24 hours of rupture PROM gestational age: full term Qualified Code(s): O42.02 - Full-term premature rupture of membranes, onset of labor within 24 hours of rupture Physical Exam Constitutional: WD/WN, vitals as above Genitourinary: cx--6-7/100/0/ant lip very swollen toco--q2-3min, pit 28 efm--140s with mod variability, accels to 150s, no decels Results & Data Vital Signs (Past 12 Hours) Vital Signs Temp Pulse Resp BP Pulse Ox 09/25/18 07:25 99 H 89 L 09/25/18 07:21 88 97 09/25/18 07:16 86 97 09/25/18 07:12 92 H 124/73 09/25/18 07:11 92 H 97 09/25/18 07:06 92 H 97 09/25/18 07:01 84 97 09/25/18 06:57 93 H 136/81 09/25/18 06:56 78 96 09/25/18 06:51 91 H 98 09/25/18 06:46 88 95 09/25/18 06:43 81 135/76 09/25/18 06:41 93 H 95 09/25/18 06:36 82 95 09/25/18 06:31 108 H 96 09/25/18 06:27 100 H 16 123/79 09/25/18 06:26 82 95 09/25/18 06:21 92 H 97 09/25/18 06:19 71 89 L 09/25/18 06:16 77 96 09/25/18 06:13 92 H 124/70 09/25/18 06:11 108 H 96 09/25/18 06:06 103 H 97 09/25/18 06:01 79 96 09/25/18 05:59 83 18 128/59 L 09/25/18 05:56 84 96 09/25/18 05:54 36.8 C 18 09/25/18 05:51 73 96 09/25/18 05:46 90 96 09/25/18 05:42 80 110/59 L 09/25/18 05:41 77 96 09/25/18 05:36 75 96 09/25/18 05:31 83 96 09/25/18 05:27 75 111/56 L 09/25/18 05:26 70 95 09/25/18 05:21 90 95 09/25/18 05:16 81 95 09/25/18 05:15 88 16 128/78 09/25/18 05:11 94 H 97 09/25/18 05:06 86 97 09/25/18 05:01 92 H 96 09/25/18 04:57 85 16 117/70 09/25/18 04:56 103 H 95 09/25/18 04:51 36.9 C 93 H 16 96 09/25/18 04:47 78 94 09/25/18 04:46 74 95 09/25/18 04:41 72 95 09/25/18 04:38 72 94 09/25/18 04:36 79 94 09/25/18 04:35 75 109/56 L 09/25/18 04:33 75 94 09/25/18 04:31 75 94 09/25/18 04:26 75 94 09/25/18 04:21 79 94 09/25/18 04:20 77 16 112/58 L 94 09/25/18 04:16 77 94 09/25/18 04:12 74 94 09/25/18 04:11 80 95 09/25/18 04:07 73 94 09/25/18 04:06 77 95 09/25/18 04:04 78 105/56 L 09/25/18 04:01 95 H 95 09/25/18 03:56 81 96 09/25/18 03:55 36.9 C 89 18 94 09/25/18 03:51 80 95 09/25/18 03:49 74 114/62 94 09/25/18 03:46 76 95 09/25/18 03:44 73 94 09/25/18 03:41 73 95 09/25/18 03:36 75 95 09/25/18 03:35 85 110/64 94 09/25/18 03:31 86 96 09/25/18 03:26 91 H 96 09/25/18 03:21 86 94 09/25/18 03:20 84 122/75 94 09/25/18 03:16 83 94 09/25/18 03:13 84 94 09/25/18 03:11 86 96 09/25/18 03:06 90 95 09/25/18 03:04 92 H 129/65 09/25/18 03:01 82 95 09/25/18 02:59 88 94 09/25/18 02:56 85 95 09/25/18 02:52 81 94 09/25/18 02:51 82 95 09/25/18 02:49 96 H 124/62 09/25/18 02:46 91 H 96 09/25/18 02:45 90 94 09/25/18 02:41 118 H 96 09/25/18 02:36 98 H 95 09/25/18 02:35 109 H 16 135/60 09/25/18 02:31 83 94 09/25/18 02:26 76 94 09/25/18 02:21 75 94 09/25/18 02:20 76 94 09/25/18 02:19 90 103/57 L 09/25/18 02:16 80 95 09/25/18 02:15 84 94 09/25/18 02:11 83 95 09/25/18 02:10 78 94 09/25/18 02:06 80 95 09/25/18 02:05 84 107/55 L 09/25/18 02:03 73 94 09/25/18 02:01 76 95 09/25/18 01:56 36.7 C 86 16 96 09/25/18 01:51 85 95 09/25/18 01:50 86 94 09/25/18 01:49 85 110/63 09/25/18 01:46 77 94 09/25/18 01:43 80 94 09/25/18 01:41 92 H 94 09/25/18 01:37 82 94 09/25/18 01:36 78 95 09/25/18 01:34 87 16 120/68 09/25/18 01:31 92 H 94 09/25/18 01:26 81 94 09/25/18 01:25 89 94 09/25/18 01:21 92 H 94 09/25/18 01:19 83 112/65 94 09/25/18 01:16 91 H 95 06/07/19 01:14 81 94 09/25/18 01:11 93 H 95 09/25/18 01:08 79 94 09/25/18 01:06 107 H 96 09/25/18 01:04 96 H 18 135/79 09/25/18 01:01 84 95 09/25/18 00:56 98 H 95 09/25/18 00:51 76 95 09/25/18 00:49 76 98/57 L 93 09/25/18 00:46 69 95 09/25/18 00:41 73 95 09/25/18 00:36 74 94 09/25/18 00:34 36.6 C 89 16 106/59 L 09/25/18 00:31 81 96 09/25/18 00:26 73 95 09/25/18 00:21 72 96 09/25/18 00:19 74 105/59 L 09/25/18 00:16 72 96 09/25/18 00:11 76 97 09/25/18 00:06 77 96 09/25/18 00:05 77 16 105/56 L 09/25/18 00:04 91 H 93 09/25/18 00:01 76 95 09/24/18 23:56 70 96 09/24/18 23:51 86 97 09/24/18 23:50 82 109/53 L 09/24/18 23:48 84 93 09/24/18 23:46 78 97 09/24/18 23:41 75 97 09/24/18 23:36 101 H 97 09/24/18 23:35 116 H 18 115/71 09/24/18 23:31 99 H 97 09/24/18 23:29 94 H 94 09/24/18 23:26 82 99 09/24/18 23:21 105 H 99 09/24/18 23:20 83 93 09/24/18 23:19 36.6 C 105 H 16 113/74 09/24/18 23:15 87 97 09/24/18 23:10 98 H 95 09/24/18 23:05 96 H 96 09/24/18 23:04 88 121/76 09/24/18 23:00 75 18 96 09/24/18 22:55 72 95 09/24/18 22:50 64 96 09/24/18 22:49 77 126/77 09/24/18 22:45 72 96 09/24/18 22:40 73 96 09/24/18 22:35 73 95 09/24/18 22:34 81 120/74 09/24/18 22:30 68 18 96 09/24/18 22:25 67 96 09/24/18 22:20 79 96 09/24/18 22:19 76 135/77 09/24/18 22:15 95 H 98 09/24/18 22:10 75 96 09/24/18 22:05 65 110/61 97 09/24/18 22:00 65 97 09/24/18 21:55 73 95 09/24/18 21:50 70 108/60 96 09/24/18 21:45 71 99 09/24/18 21:40 74 97 09/24/18 21:35 74 96 09/24/18 21:34 71 107/60 09/24/18 21:30 81 18 97 09/24/18 21:28 81 92 09/24/18 21:25 83 99 09/24/18 21:20 87 113/66 96 09/24/18 21:18 73 92 09/24/18 21:15 77 96 09/24/18 21:10 76 96 09/24/18 21:09 78 93 09/24/18 21:05 65 98 09/24/18 21:04 80 123/77 93 09/24/18 21:03 36.5 C 18 09/24/18 21:00 86 95 09/24/18 20:55 90 96 09/24/18 20:50 80 96 09/24/18 20:49 76 121/72 93 09/24/18 20:45 74 97 09/24/18 20:40 78 97 09/24/18 20:35 88 95 09/24/18 20:34 84 87 L 09/24/18 20:30 86 97 09/24/18 20:25 79 97 09/24/18 20:20 78 118/78 97 09/24/18 20:15 79 97 09/24/18 20:10 86 97 09/24/18 20:05 80 120/74 94 09/24/18 20:00 85 97 09/24/18 19:55 85 97 06/06/19 19:50 74 97 09/24/18 19:49 75 135/73 09/24/18 19:45 77 97 09/24/18 19:42 86 93 09/24/18 19:40 93 H 97 09/24/18 19:37 84 91 09/24/18 19:35 78 120/81 97 09/24/18 19:30 77 98
[2018-09-25] MEDS ORDERED: BUPIVACAINE 0.25% 30 ML VIAL ONE (08:36)
--- NOTE | 2018-09-25 09:42 | Communication Note ---
Date of Service: September 25, 2018 Unable to achieve adequate contractions and pit now at 34. Plan to stop pit for about 30 min and then restart at 17. Dysfunctional labor pattern. Fetus c ategory one.
--- NOTE | 2018-09-25 12:53 | Obstetrical Progress Note ---
Date of Service September 25, 2018 Assessment & Plan (1) Full-term PROM with onset of labor within 24 hours of rupture: answered pt questions to the best of my ability, explained indications for prostaglandins in labor induction. discussed pitocin. rec position change, cont to increase pit and time. rec Dr. Trinh examine pt as she has had different assessments by different examiners but I feel this is progress and fhts are categ 1, reassuring. Pt and spouse agreeable. Subjective pt asked to see physician as she has some questions. wondering if cytotec could be used and fatiguing and thinking she does not want to go to much longer with attempt at labor. Physical Exam Constitutional: WD/WN, vitals as above Genitourinary: Manual OB Exam: + cervical dilation (thick tongue of cx at 11oclock) 8 cm, + cervical effacement 100% and + station 0 and + 1 OB Exam Monitor Tracing: + external FHT monitor used (140 mod variability, +scalp stim response), + intra-uterine pressure catheter used (q2-3 inadeq mvus, pit at 23) and + category I Results & Data Vital Signs (Past 12 Hours) Vital Signs Temp Pulse Resp BP Pulse Ox 09/25/18 12:45 85 97 09/25/18 12:40 86 98 09/25/18 12:35 81 97 09/25/18 12:30 96 H 93 09/25/18 12:25 88 99 09/25/18 12:20 77 99 09/25/18 12:15 86 126/71 99 09/25/18 12:09 73 98 09/25/18 12:04 72 97 09/25/18 12:00 77 94/53 L 09/25/18 11:59 81 96 09/25/18 11:54 80 97 09/25/18 11:49 78 98 09/25/18 11:44 88 98 09/25/18 11:43 76 135/82 09/25/18 11:39 89 98 09/25/18 11:34 36.4 C L 82 20 98 09/25/18 11:31 85 132/82 09/25/18 11:29 90 98 09/25/18 11:24 89 97 09/25/18 11:19 99 H 97 09/25/18 11:14 86 108/65 97 09/25/18 11:09 76 97 06/07 11:04 71 97 06/07 10:59 76 97 06/07 10:58 82 112/60 06/07 10:54 78 97 /11/06 10:49 90 97 06/11/06 10:44 84 97 09/25/18 10:43 78 125/70 0607 10:39 85 97 09/25/18 10:34 76 97 09/25/18 10:29 78 97 09/25/18 10:28 81 138/82 09/25/18 10:24 75 98 06 10:19 78 99 09/25/18 10:14 98 H 100 09/25/18 10:13 93 H 136/78 09/25/18 10:09 88 99 09/25/18 10:04 74 97 09/25/18 09:59 74 98 09/25/18 09:58 78 124/77 09/25/18 09:54 73 97 09/25/18 09:49 71 97 09/25/18 09:44 78 99 09/25/18 09:43 77 130/78 09/25/18 09:39 87 98 09/25/18 09:34 91 H 98 09/25/18 09:29 93 H 99 09/25/18 09:28 36.7 C 20 09/25/18 09:23 96 H 97 09/25/18 09:18 85 98 09/25/18 09:13 86 98 09/25/18 09:08 76 98 09/25/18 09:03 78 98 09/25/18 08:58 69 127/81 98 07 08:56 76 127/76 0719 08:54 81 130/78 060719 08:53 88 99 0719 08:52 74 131/78 060719 08:50 77 130/78 06/07/19 08:48 74 126/80 97 06/07/19 08:46 70 132/77 06/07/19 08:44 82 119/75 06/ 08:43 87 99 07 08:42 75 113/74 06/07/19 08:40 69 109/60 [id number] 08:38 72 98 06/07 08:33 76 96 06/07/19 08:28 69 95 09/25/18 08:27 76 118/72 09/25/18 08:23 73 98 09/25/18 08:18 65 97 09/25/18 08:13 72 113/67 98 09/25/18 08:08 71 99 09/25/18 08:03 73 99 09/25/18 07:58 95 H 126/81 98 09/25/18 07:53 93 H 98 09/25/18 07:48 94 H 96 09/25/18 07:41 95 H 96 09/25/18 07:36 96 H 96 09/25/18 07:31 102 H 96 09/25/18 07:27 36.7 C 105 H 20 123/75 09/25/18 07:26 108 H 96 09/25/18 07:25 99 H 89 L 09/25/18 07:21 88 97 09/25/18 07:16 86 97 09/25/18 07:12 92 H 124/73 09/25/18 07:11 92 H 97 09/25/18 07:06 92 H 97 09/25/18 07:01 84 97 09/25/18 06:57 93 H 136/81 09/25/18 06:56 78 96 09/25/18 06:51 91 H 98 09/25/18 06:46 88 95 09/25/18 06:43 81 135/76 09/25/18 06:41 93 H 95 09/25/18 06:36 82 95 09/25/18 06:31 108 H 96 09/25/18 06:27 100 H 16 123/79 09/25/18 06:26 82 95 09/25/18 06:21 92 H 97 09/25/18 06:19 71 89 L 09/25/18 06:16 77 96 09/25/18 06:13 92 H 124/70 09/25/18 06:11 108 H 96 09/25/18 06:06 103 H 97 09/25/18 06:01 79 96 09/25/18 05:59 83 18 128/59 L 09/25/18 05:56 84 96 09/25/18 05:54 36.8 C 18 09/25/18 05:51 73 96 09/25/18 05:46 90 96 09/25/18 05:42 80 110/59 L 09/25/18 05:41 77 96 09/25/18 05:36 75 96 09/25/18 05:31 83 96 09/25/18 05:27 75 111/56 L 09/25/18 05:26 70 95 09/25/18 05:21 90 95 09/25/18 05:16 81 95 09/25/18 05:15 88 16 128/78 09/25/18 05:11 94 H 97 09/25/18 05:06 86 97 09/25/18 05:01 92 H 96 09/25/18 04:57 85 16 117/70 09/25/18 04:56 103 H 95 09/25/18 04:51 36.9 C 93 H 16 96 09/25/18 04:47 78 94 09/25/18 04:46 74 95 09/25/18 04:41 72 95 09/25/18 04:38 72 94 09/25/18 04:36 79 94 09/25/18 04:35 75 109/56 L 09/25/18 04:33 75 94 09/25/18 04:31 75 94 09/25/18 04:26 75 94 09/25/18 04:21 79 94 09/25/18 04:20 77 16 112/58 L 94 09/25/18 04:16 77 94 09/25/18 04:12 74 94 09/25/18 04:11 80 95 09/25/18 04:07 73 94 09/25/18 04:06 77 95 09/25/18 04:04 78 105/56 L 09/25/18 04:01 95 H 95 09/25/18 03:56 81 96 09/25/18 03:55 36.9 C 89 18 94 09/25/18 03:51 80 95 09/25/18 03:49 74 114/62 94 09/25/18 03:46 76 95 09/25/18 03:44 73 94 09/25/18 03:41 73 95 09/25/18 03:36 75 95 09/25/18 03:35 85 110/64 94 09/25/18 03:31 86 96 09/25/18 03:26 91 H 96 09/25/18 03:21 86 94 09/25/18 03:20 84 122/75 94 09/25/18 03:16 83 94 09/25/18 03:13 84 94 09/25/18 03:11 86 96 09/25/18 03:06 90 95 09/25/18 03:04 92 H 129/65 09/25/18 03:01 82 95 09/25/18 02:59 88 94 09/25/18 02:56 85 95 09/25/18 02:52 81 94 09/25/18 02:51 82 95 09/25/18 02:49 96 H 124/62 09/25/18 02:46 91 H 96 09/25/18 02:45 90 94 09/25/18 02:41 118 H 96 09/25/18 02:36 98 H 95 09/25/18 02:35 109 H 16 135/60 09/25/18 02:31 83 94 09/25/18 02:26 76 94 09/25/18 02:21 75 94 09/25/18 02:20 76 94 09/25/18 02:19 90 103/57 L 09/25/18 02:16 80 95 09/25/18 02:15 84 94 09/25/18 02:11 83 95 09/25/18 02:10 78 94 09/25/18 02:06 80 95 09/25/18 02:05 84 107/55 L 09/25/18 02:03 73 94 09/25/18 02:01 76 95 09/25/18 01:56 36.7 C 86 16 96 09/25/18 01:51 85 95 09/25/18 01:50 86 94 09/25/18 01:49 85 110/63 09/25/18 01:46 77 94 09/25/18 01:43 80 94 09/25/18 01:41 92 H 94 09/25/18 01:37 82 94 09/25/18 01:36 78 95 09/25/18 01:34 87 16 120/68 09/25/18 01:31 92 H 94 09/25/18 01:26 81 94 09/25/18 01:25 89 94 09/25/18 01:21 92 H 94 09/25/18 01:19 83 112/65 94 09/25/18 01:16 91 H 95 09/25/18 01:14 81 94 06/07/19 01:11 93 H 95 09/25/18 01:08 79 94 09/25/18 01:06 107 H 96 09/25/18 01:04 96 H 18 135/79 09/25/18 01:01 84 95 09/25/18 00:56 98 H 95 09/25/18 00:51 76 95 09/25/18 00:49 76 98/57 L 93
--- NOTE | 2018-09-25 16:50 | Labor Progress Brief Note ---
Date of Service September 25, 2018 Subjective comfortable Assessment & Plan (1) PROM (premature rupture of membranes): Is making very slow progress despite inadequate contractions. fetus category one. Baby is really molding to fit through the pelvis. I think I feel the ant font on the direct maternal right, may be turning? Will continue current management plan. Hold pit at 39 now. PROM onset of labor timing: onset of labor within 24 hours of rupture PROM gestational age: full term Qualified Code(s): O42.02 - Full-term premature rupture of membranes, onset of labor within 24 hours of rupture Physical Exam Constitutional: WD/WN, vitals as above Genitourinary: cx--9/100/+1 toco--q2min, pit at 39, not adequate efm--150s with mod variability, small accels, no decels Results & Data Vital Signs (Past 12 Hours) Vital Signs Temp Pulse Resp BP Pulse Ox 09/25/18 16:41 93 H 99 09/25/18 16:36 78 100 09/25/18 16:31 78 100 09/25/18 16:30 36.7 C 18 09/25/18 16:28 72 135/88 09/25/18 16:26 69 98 09/25/18 16:21 67 97 09/25/18 16:16 71 98 09/25/18 16:14 76 131/85 09/25/18 16:11 71 98 09/25/18 16:06 73 98 09/25/18 16:01 80 100 09/25/18 15:59 78 130/87 09/25/18 15:56 83 99 09/25/18 15:51 79 98 09/25/18 15:46 82 96 09/25/18 15:43 74 124/78 09/25/18 15:41 82 97 09/25/18 15:36 90 98 09/25/18 15:31 76 99 09/25/18 15:29 87 132/88 09/25/18 15:26 86 99 09/25/18 15:21 86 98 09/25/18 15:16 89 99 09/25/18 15:14 93 H 128/77 09/25/18 15:11 76 99 09/25/18 15:06 83 99 09/25/18 15:01 99 H 98 09/25/18 14:59 84 123/71 09/25/18 14:56 80 99 09/25/18 14:51 84 99 09/25/18 14:46 90 99 09/25/18 14:44 93 H 135/87 09/25/18 14:41 82 98 09/25/18 14:36 88 99 09/25/18 14:31 94 H 98 09/25/18 14:28 87 127/83 09/25/18 14:26 94 H 98 09/25/18 14:21 36.6 C 88 20 97 09/25/18 14:16 95 H 97 09/25/18 14:11 100 H 99 09/25/18 14:05 77 98 09/25/18 14:00 96 H 99 09/25/18 13:59 88 133/83 09/25/18 13:55 83 98 09/25/18 13:50 73 97 09/25/18 13:45 69 97 09/25/18 13:43 75 108/59 L 09/25/18 13:40 81 97 09/25/18 13:35 87 98 09/25/18 13:30 100 H 98 09/25/18 13:28 85 128/80 09/25/18 13:25 89 97 09/25/18 13:20 87 98 09/25/18 13:15 87 98 09/25/18 13:14 83 126/84 09/25/18 13:10 82 98 09/25/18 13:05 84 97 09/25/18 13:00 79 97 09/25/18 12:58 84 128/78 09/25/18 12:55 89 98 09/25/18 12:50 92 H 97 09/25/18 12:45 85 97 09/25/18 12:40 86 98 09/25/18 12:35 81 97 09/25/18 12:30 96 H 93 09/25/18 12:25 88 99 09/25/18 12:20 77 99 09/25/18 12:15 86 126/71 99 09/25/18 12:09 73 98 09/25/18 12:04 72 97 09/25/18 12:00 77 94/53 L 09/25/18 11:59 81 96 09/25/18 11:54 80 97 09/25/18 11:49 78 98 09/25/18 11:44 88 98 07 11:43 76 135/82 0607 11:39 89 98 0607 11:34 36.4 C L 82 20 98 09/25/18 11:31 85 132/82 09/25/18 11:29 90 98 09/25/18 11:24 89 97 07 11:19 99 H 97 09/25/18 11:14 86 108/65 97 09/25/18 11:09 76 97 09/25/18 11:04 71 97 09/25/18 10:59 76 97 09/25/18 10:58 82 112/60 09/25/18 10:54 78 97 09/25/18 10:49 90 97 09/25/18 10:44 84 97 09/25/18 10:43 78 125/70 09/25/18 10:39 85 97 09/25/18 10:34 76 97 09/25/18 10:29 78 97 09/25/18 10:28 81 138/82 09/25/18 10:24 75 98 09/25/18 10:19 78 99 09/25/18 10:14 98 H 100 09/25/18 10:13 93 H 136/78 09/25/18 10:09 88 99 09/25/18 10:04 74 97 09/25/18 09:59 74 98 09/25/18 09:58 78 124/77 09/25/18 09:54 73 97 09/25/18 09:49 71 97 09/25/18 09:44 78 99 09/25/18 09:43 77 130/78 09/25/18 09:39 87 98 09/25/18 09:34 91 H 98 09/25/18 09:29 93 H 99 09/25/18 09:28 36.7 C 20 09/25/18 09:23 96 H 97 09/25/18 09:18 85 98 09/25/18 09:13 86 98 09/25/18 09:08 76 98 09/25/18 09:03 78 98 06 08:58 69 127/81 98 07 08:56 76 127/76 09/25/18 08:54 81 130/78 06/07/19 08:53 88 99 09/25/18 08:52 74 131/78 09/25/18 08:50 77 130/78 09/25/18 08:48 74 126/80 97 09/25/18 08:46 70 132/77 09/25/18 08:44 82 119/75 09/25/18 08:43 87 99 09/25/18 08:42 75 113/74 09/25/18 08:40 69 109/60 09/25/18 08:38 72 98 09/25/18 08:33 76 96 09/25/18 08:28 69 95 09/25/18 08:27 76 118/72 09/25/18 08:23 73 98 09/25/18 08:18 65 97 09/25/18 08:13 72 113/67 98 09/25/18 08:08 71 99 09/25/18 08:03 73 99 09/25/18 07:58 95 H 126/81 98 09/25/18 07:53 93 H 98 09/25/18 07:48 94 H 96 09/25/18 07:41 95 H 96 09/25/18 07:36 96 H 96 09/25/18 07:31 102 H 96 09/25/18 07:27 36.7 C 105 H 20 123/75 09/25/18 07:26 108 H 96 09/25/18 07:25 99 H 89 L 09/25/18 07:21 88 97 09/25/18 07:16 86 97 09/25/18 07:12 92 H 124/73 09/25/18 07:11 92 H 97 09/25/18 07:06 92 H 97 09/25/18 07:01 84 97 09/25/18 06:57 93 H 136/81 09/25/18 06:56 78 96 09/25/18 06:51 91 H 98 09/25/18 06:46 88 95 09/25/18 06:43 81 135/76 09/25/18 06:41 93 H 95 09/25/18 06:36 82 95 09/25/18 06:31 108 H 96 09/25/18 06:27 100 H 16 123/79 09/25/18 06:26 82 95 09/25/18 06:21 92 H 97 09/25/18 06:19 71 89 L 09/25/18 06:16 77 96 09/25/18 06:13 92 H 124/70 09/25/18 06:11 108 H 96 09/25/18 06:06 103 H 97 09/25/18 06:01 79 96 09/25/18 05:59 83 18 128/59 L 09/25/18 05:56 84 96 09/25/18 05:54 36.8 C 18 09/25/18 05:51 73 96 09/25/18 05:46 90 96 09/25/18 05:42 80 110/59 L 09/25/18 05:41 77 96 09/25/18 05:36 75 96 09/25/18 05:31 83 96 09/25/18 05:27 75 111/56 L 09/25/18 05:26 70 95 09/25/18 05:21 90 95 09/25/18 05:16 81 95 09/25/18 05:15 88 16 128/78 09/25/18 05:11 94 H 97 09/25/18 05:06 86 97 09/25/18 05:01 92 H 96 09/25/18 04:57 85 16 117/70 09/25/18 04:56 103 H 95 09/25/18 04:51 36.9 C 93 H 16 96 09/25/18 04:47 78 94
[2018-09-25] MEDS ORDERED: fentaNYL 2MCG/ML ROPIV 1.25MG/ML 100 ML BAG EPI ONE (18:21)
[2018-09-25] MEDS ORDERED: NALBUPHINE HCL INJ 10 MG/ML AMP IV PRN ×2 (18:36→23:48)
[2018-09-25] MEDS ORDERED: ePHEDrine sulfate 50 MG/ML AMP IV PRN ×2 (18:36→23:48)
[2018-09-25] MEDS ORDERED: NALOXONE HCL 1 MG in SODIUM CHLORIDE 0.9% 1000ML 1,000 ML IV PRN ×2 (18:36→23:48)
[2018-09-25] MEDS ORDERED: DiphenhydrAMINE HCL 50 MG/ML VIAL IV PRN ×2 (18:36→23:48)
[2018-09-25] MEDS ORDERED: ONDANSETRON INJ 2 MG/ML 2 ML VIAL IV PRN ×2 (18:36→23:48)
[2018-09-25] MEDS ORDERED: fentaNYL 2MCG/ML ROPIV 1.25MG/ML 100 ML BAG EPI PRN (18:36)
[2018-09-25] MEDS ORDERED: NALOXONE HCL 0.4 MG/1 ML VIAL/CARP IV PRN ×2 (18:36→23:48)
--- NOTE | 2018-09-25 18:47 | Labor Progress Brief Note ---
Date of Service September 25, 2018 Subjective breathing through some contractions Assessment & Plan (1) PROM (premature rupture of membranes): Will start second stage. fetus reassuring. PROM onset of labor timing: onset of labor within 24 hours of rupture PROM gestational age: full term Qualified Code(s): O42.02 - Full-term premature rupture of membranes, onset of labor within 24 hours of rupture Physical Exam Constitutional: WD/WN, vitals as above Genitourinary: cx--c/c/+1 toco--q2-5min, pit at 39 efm--130s with mod variability, small accels, rare variable Results & Data Vital Signs (Past 12 Hours) Vital Signs Temp Pulse Resp BP Pulse Ox 09/25/18 18:41 94 H 100 09/25/18 18:36 93 H 100 09/25/18 18:31 71 99 09/25/18 18:29 89 124/84 09/25/18 18:28 36.9 C 18 09/25/18 18:26 92 H 96 09/25/18 18:21 77 99 09/25/18 18:16 73 99 09/25/18 18:15 66 91 09/25/18 18:13 75 125/71 09/25/18 18:11 79 98 09/25/18 18:06 82 98 09/25/18 18:01 88 95 09/25/18 18:00 84 130/76 09/25/18 17:56 92 H 98 09/25/18 17:51 86 98 09/25/18 17:46 85 98 09/25/18 17:43 81 126/79 09/25/18 17:41 83 99 09/25/18 17:36 82 100 09/25/18 17:31 90 100 09/25/18 17:28 78 125/76 09/25/18 17:26 83 100 09/25/18 17:21 85 98 09/25/18 17:16 100 H 97 09/25/18 17:14 79 126/72 09/25/18 17:11 68 99 09/25/18 17:06 72 98 09/25/18 17:01 76 98 09/25/18 16:58 71 127/72 09/25/18 16:56 78 98 09/25/18 16:51 76 100 09/25/18 16:46 90 99 06/07/19 16:45 78 114/65 09/25/18 16:41 93 H 99 09/25/18 16:36 78 100 09/25/18 16:31 78 100 09/25/18 16:30 36.7 C 18 09/25/18 16:28 72 135/88 09/25/18 16:26 69 98 09/25/18 16:21 67 97 09/25/18 16:16 71 98 09/25/18 16:14 76 131/85 09/25/18 16:11 71 98 09/25/18 16:06 73 98 09/25/18 16:01 80 100 09/25/18 15:59 78 130/87 09/25/18 15:56 83 99 09/25/18 15:51 79 98 09/25/18 15:46 82 96 09/25/18 15:43 74 124/78 09/25/18 15:41 82 97 09/25/18 15:36 90 98 09/25/18 15:31 76 99 09/25/18 15:29 87 132/88 09/25/18 15:26 86 99 09/25/18 15:21 86 98 09/25/18 15:16 89 99 09/25/18 15:14 93 H 128/77 09/25/18 15:11 76 99 09/25/18 15:06 83 99 09/25/18 15:01 99 H 98 09/25/18 14:59 84 123/71 09/25/18 14:56 80 99 09/25/18 14:51 84 99 09/25/18 14:46 90 99 09/25/18 14:44 93 H 135/87 09/25/18 14:41 82 98 09/25/18 14:36 88 99 09/25/18 14:31 94 H 98 09/25/18 14:28 87 127/83 09/25/18 14:26 94 H 98 09/25/18 14:21 36.6 C 88 20 97 09/25/18 14:16 95 H 97 09/25/18 14:11 100 H 99 09/25/18 14:05 77 98 09/25/18 14:00 96 H 99 09/25/18 13:59 88 133/83 09/25/18 13:55 83 98 09/25/18 13:50 73 97 09/25/18 13:45 69 97 09/25/18 13:43 75 108/59 L 09/25/18 13:40 81 97 09/25/18 13:35 87 98 09/25/18 13:30 100 H 98 09/25/18 13:28 85 128/80 09/25/18 13:25 89 97 09/25/18 13:20 87 98 09/25/18 13:15 87 98 09/25/18 13:14 83 126/84 09/25/18 13:10 82 98 09/25/18 13:05 84 97 09/25/18 13:00 79 97 09/25/18 12:58 84 128/78 09/25/18 12:55 89 98 09/25/18 12:50 92 H 97 09/25/18 12:45 85 97 09/25/18 12:40 86 98 09/25/18 12:35 81 97 09/25/18 12:30 96 H 93 09/25/18 12:25 88 99 09/25/18 12:20 77 99 09/25/18 12:15 86 126/71 99 09/25/18 12:09 73 98 09/25/18 12:04 72 97 09/25/18 12:00 77 94/53 L 09/25/18 11:59 81 96 09/25/18 11:54 80 97 09/25/18 11:49 78 98 09/25/18 11:44 88 98 09/25/18 11:43 76 135/82 09/25/18 11:39 89 98 09/25/18 11:34 36.4 C L 82 20 98 09/25/18 11:31 85 132/82 09/25/18 11:29 90 98 09/25/18 11:24 89 97 09/25/18 11:19 99 H 97 09/25/18 11:14 86 108/65 97 09/25/18 11:09 76 97 09/25/18 11:04 71 97 09/25/18 10:59 76 97 09/25/18 10:58 82 112/60 09/25/18 10:54 78 97 09/25/18 10:49 90 97 09/25/18 10:44 84 97 06/07/19 10:43 78 125/70 06/07/19 10:39 85 97 06/07/19 10:34 76 97 06/07/19 10:29 78 97 06/07/19 10:28 81 138/82 06/07/19 10:24 75 98 06/07/19 10:19 78 99 06/07/19 10:14 98 H 100 06/07/19 10:13 93 H 136/78 06/07/19 10:09 88 99 06/07/19 10:04 74 97 06/07/19 09:59 74 98 06/07/19 09:58 78 124/77 06/07/19 09:54 73 97 06/07/ 09:49 71 97 06/07/ 09:44 78 99 0607/19 09:43 77 130/78 0607/19 09:39 87 98 06/07/19 09:34 91 H 98 06/07/ 09:29 93 H 99 07/ 09:28 36.7 C 20 09/25/18 09:23 96 H 97 06/07/ 09:18 85 98 06/07/ 09:13 86 98 06/07/19 09:08 76 98 06/07/19 09:03 78 98 06/07/19 08:58 69 127/81 98 06/07/19 08:56 76 127/76 06/07/19 08:54 81 130/78 06/07/19 08:53 88 99 06/07/19 08:52 74 131/78 06/07/19 08:50 77 130/78 06/07/19 08:48 74 126/80 97 06/07/19 08:46 70 132/77 06/07/19 08:44 82 119/75 06/07/19 08:43 87 99 06/07/19 08:42 75 113/74 06/07/19 08:40 69 109/60 06/07/19 08:38 72 98 06/07/19 08:33 76 96 06/07/19 08:28 69 95 06/07/19 08:27 76 118/72 06/07/19 08:23 73 98 06/07/19 08:18 65 97 06/07/19 08:13 72 113/67 98 06/07/19 08:08 71 99 06/07/19 08:03 73 99 09/25/18 07:58 95 H 126/81 98 09/25/18 07:53 93 H 98 09/25/18 07:48 94 H 96 09/25/18 07:41 95 H 96 09/25/18 07:36 96 H 96 09/25/18 07:31 102 H 96 09/25/18 07:27 36.7 C 105 H 20 123/75 09/25/18 07:26 108 H 96 09/25/18 07:25 99 H 89 L 09/25/18 07:21 88 97 09/25/18 07:16 86 97 09/25/18 07:12 92 H 124/73 09/25/18 07:11 92 H 97 09/25/18 07:06 92 H 97 09/25/18 07:01 84 97 09/25/18 06:57 93 H 136/81 09/25/18 06:56 78 96 09/25/18 06:51 91 H 98
--- NOTE | 2018-09-25 19:09 | Communication Note ---
Date of Service: September 25, 2018 PUshing. Was able to reduce the redundant cervix over the head. Head very molded. baby tolerating pushing. will monitor closely.
--- NOTE | 2018-09-25 20:56 | Labor Progress Brief Note ---
Date of Service September 25, 2018 Subjective Pushing with excellent effort Assessment & Plan (1) PROM (premature rupture of membranes): Patient pushing for not quite two hours. She has definitely moved the baby. The caput with push is at the hymenal ring. Significant labial swelling. She continues to push with good effort. Fetus overall reassuring. PROM onset of labor timing: onset of labor within 24 hours of rupture PROM gestational age: full term Qualified Code(s): O42.02 - Full-term premature rupture of membranes, onset of labor within 24 hours of rupture Physical Exam Constitutional: WD/WN, vitals as above Genitourinary: +2 toco--q2-3min efm--155 with mod variability, small accels, variables with contractions Results & Data Vital Signs (Past 12 Hours) Vital Signs Temp Pulse Resp BP Pulse Ox 09/25/18 20:48 117 H 98 09/25/18 20:43 106 H 98 09/25/18 20:41 95 H 90 09/25/18 20:38 96 H 99 09/25/18 20:33 91 H 98 09/25/18 20:29 20 09/25/18 20:28 130 H 20 153/73 H 96 09/25/18 20:23 98 H 98 09/25/18 20:19 122 H 90 09/25/18 20:18 109 H 100 09/25/18 20:14 88 20 129/78 09/25/18 20:13 87 98 09/25/18 20:08 108 H 97 09/25/18 20:03 82 97 09/25/18 19:59 93 H 20 128/60 90 09/25/18 19:58 87 97 09/25/18 19:53 92 H 96 09/25/18 19:52 103 H 84 L 09/25/18 19:48 83 96 09/25/18 19:47 85 86 L 09/25/18 19:43 84 18 129/80 96 09/25/18 19:38 98 H 96 09/25/18 19:36 104 H 85 L 09/25/18 19:33 99 H 97 09/25/18 19:30 100 H 90 09/25/18 19:28 102 H 97 09/25/18 19:24 95 H 84 L 09/25/18 19:22 99 H 97 09/25/18 19:18 107 H 89 L 09/25/18 19:16 112 H 96 09/25/18 19:14 90 133/84 09/25/18 19:12 91 H 88 L 09/25/18 19:11 88 98 09/25/18 19:06 119 H 97 09/25/18 19:01 90 98 09/25/18 19:00 107 H 85 L 09/25/18 18:58 36.8 C 88 18 136/75 09/25/18 18:56 128 H 73 L 09/25/18 18:54 90 87 L 09/25/18 18:51 84 97 09/25/18 18:46 93 H 99 09/25/18 18:41 94 H 100 09/25/18 18:36 93 H 100 09/25/18 18:31 71 99 09/25/18 18:29 89 124/84 09/25/18 18:28 36.9 C 18 09/25/18 18:26 92 H 96 09/25/18 18:21 77 99 09/25/18 18:16 73 99 09/25/18 18:15 66 91 09/25/18 18:13 75 125/71 09/25/18 18:11 79 98 09/25/18 18:06 82 98 09/25/18 18:01 88 95 09/25/18 18:00 84 130/76 09/25/18 17:56 92 H 98 09/25/18 17:51 86 98 09/25/18 17:46 85 98 09/25/18 17:43 81 126/79 09/25/18 17:41 83 99 09/25/18 17:36 82 100 09/25/18 17:31 90 100 09/25/18 17:28 78 125/76 09/25/18 17:26 83 100 09/25/18 17:21 85 98 09/25/18 17:16 100 H 97 09/25/18 17:14 79 126/72 09/25/18 17:11 68 99 09/25/18 17:06 72 98 09/25/18 17:01 76 98 09/25/18 16:58 71 127/72 09/25/18 16:56 78 98 09/25/18 16:51 76 100 09/25/18 16:46 90 99 09/25/18 16:45 78 114/65 09/25/18 16:41 93 H 99 09/25/18 16:36 78 100 09/25/18 16:31 78 100 09/25/18 16:30 36.7 C 18 09/25/18 16:28 72 135/88 09/25/18 16:26 69 98 09/25/18 16:21 67 97 09/25/18 16:16 71 98 09/25/18 16:14 76 131/85 09/25/18 16:11 71 98 09/25/18 16:06 73 98 09/25/18 16:01 80 100 09/25/18 15:59 78 130/87 09/25/18 15:56 83 99 09/25/18 15:51 79 98 09/25/18 15:46 82 96 09/25/18 15:43 74 124/78 09/25/18 15:41 82 97 09/25/18 15:36 90 98 09/25/18 15:31 76 99 09/25/18 15:29 87 132/88 09/25/18 15:26 86 99 09/25/18 15:21 86 98 09/25/18 15:16 89 99 09/25/18 15:14 93 H 128/77 09/25/18 15:11 76 99 09/25/18 15:06 83 99 09/25/18 15:01 99 H 98 09/25/18 14:59 84 123/71 09/25/18 14:56 80 99 09/25/18 14:51 84 99 09/25/18 14:46 90 99 09/25/18 14:44 93 H 135/87 09/25/18 14:41 82 98 09/25/18 14:36 88 99 09/25/18 14:31 94 H 98 09/25/18 14:28 87 127/83 09/25/18 14:26 94 H 98 09/25/18 14:21 36.6 C 88 20 97 09/25/18 14:16 95 H 97 09/25/18 14:11 100 H 99 09/25/18 14:05 77 98 09/25/18 14:00 96 H 99 09/25/18 13:59 88 133/83 09/25/18 13:55 83 98 09/25/18 13:50 73 97 09/25/18 13:45 69 97 09/25/18 13:43 75 108/59 L 09/25/18 13:40 81 97 09/25/18 13:35 87 98 09/25/18 13:30 100 H 98 09/25/18 13:28 85 128/80 09/25/18 13:25 89 97 09/25/18 13:20 87 98 09/25/18 13:15 87 98 09/25/18 13:14 83 126/84 09/25/18 13:10 82 98 09/25/18 13:05 84 97 09/25/18 13:00 79 97 09/25/18 12:58 84 128/78 09/25/18 12:55 89 98 09/25/18 12:50 92 H 97 09/25/18 12:45 85 97 09/25/18 12:40 86 98 09/25/18 12:35 81 97 09/25/18 12:30 96 H 93 09/25/18 12:25 88 99 09/25/18 12:20 77 99 09/25/18 12:15 86 126/71 99 09/25/18 12:09 73 98 09/25/18 12:04 72 97 09/25/18 12:00 77 94/53 L 09/25/18 11:59 81 96 09/25/18 11:54 80 97 09/25/18 11:49 78 98 09/25/18 11:44 88 98 09/25/18 11:43 76 135/82 09/25/18 11:39 89 98 09/25/18 11:34 36.4 C L 82 20 98 09/25/18 11:31 85 132/82 09/25/18 11:29 90 98 09/25/18 11:24 89 97 09/25/18 11:19 99 H 97 09/25/18 11:14 86 108/65 97 09/25/18 11:09 76 97 09/25/18 11:04 71 97 09/25/18 10:59 76 97 09/25/18 10:58 82 112/60 09/25/18 10:54 78 97 09/25/18 10:49 90 97 09/25/18 10:44 84 97 09/25/18 10:43 78 125/70 09/25/18 10:39 85 97 09/25/18 10:34 76 97 09/25/18 10:29 78 97 09/25/18 10:28 81 138/82 09/25/18 10:24 75 98 09/25/18 10:19 78 99 09/25/18 10:14 98 H 100 09/25/18 10:13 93 H 136/78 09/25/18 10:09 88 99 09/25/18 10:04 74 97 09/25/18 09:59 74 98 09/25/18 09:58 78 124/77 09/25/18 09:54 73 97 09/25/18 09:49 71 97 09/25/18 09:44 78 99 09/25/18 09:43 77 130/78 09/25/18 09:39 87 98 09/25/18 09:34 91 H 98 09/25/18 09:29 93 H 99 09/25/18 09:28 36.7 C 20 09/25/18 09:23 96 H 97 09/25/18 09:18 85 98 09/25/18 09:13 86 98 09/25/18 09:08 76 98 09/25/18 09:03 78 98 09/25/18 08:58 69 127/81 98 09/25/18 08:56 76 127/76
--- NOTE | 2018-09-25 21:44 | Labor Progress Brief Note ---
Date of Service September 25, 2018 Subjective pushing with excellent effort, lots of pressure Assessment & Plan (1) PROM (premature rupture of membranes): baby no longer descending. discussed. Patient desires to push until 10pm, 3 hours total. Discussed then going to c/s or trialing vacuum. Significant caput may make applying vacuum challenging. Will readddress in 30 min. PROM onset of labor timing: onset of labor within 24 hours of rupture PROM gestational age: full term Qualified Code(s): O42.02 - Full-term premature rupture of membranes, onset of labor within 24 hours of rupture Physical Exam Constitutional: WD/WN, vitals as above Genitourinary: caput at +3, actual head still not below the pubis. no change in last 30 minutes toco--q2-3min, pit at 39 efm--150s wtih mod variability, accels present, variables with pushing. Results & Data Vital Signs (Past 12 Hours) Vital Signs Temp Pulse Resp BP Pulse Ox 09/25/18 21:38 118 H 98 09/25/18 21:33 82 98 09/25/18 21:28 111 H 97 09/25/18 21:23 104 H 94 09/25/18 21:21 103 H 88 L 09/25/18 21:18 86 98 09/25/18 21:15 20 09/25/18 21:14 85 124/78 09/25/18 21:13 83 98 09/25/18 21:09 85 82 L 09/25/18 21:08 82 97 09/25/18 21:03 104 H 97 09/25/18 20:59 98 H 89 L 09/25/18 20:58 86 99 09/25/18 20:55 36.7 C 18 09/25/18 20:53 96 H 99 09/25/18 20:48 117 H 98 09/25/18 20:43 106 H 98 09/25/18 20:41 95 H 90 09/25/18 20:38 96 H 99 09/25/18 20:33 91 H 98 09/25/18 20:29 20 09/25/18 20:28 130 H 20 153/73 H 96 09/25/18 20:23 98 H 98 09/25/18 20:19 122 H 90 09/25/18 20:18 109 H 100 09/25/18 20:14 88 20 129/78 09/25/18 20:13 87 98 09/25/18 20:08 108 H 97 09/25/18 20:03 82 97 09/25/18 19:59 93 H 20 128/60 90 09/25/18 19:58 87 97 09/25/18 19:53 92 H 96 09/25/18 19:52 103 H 84 L 09/25/18 19:48 83 96 09/25/18 19:47 85 86 L 09/25/18 19:43 84 18 129/80 96 09/25/18 19:38 98 H 96 09/25/18 19:36 104 H 85 L 09/25/18 19:33 99 H 97 09/25/18 19:30 100 H 90 09/25/18 19:28 102 H 97 09/25/18 19:24 95 H 84 L 09/25/18 19:22 99 H 97 09/25/18 19:18 107 H 89 L 09/25/18 19:16 112 H 96 09/25/18 19:14 90 133/84 09/25/18 19:12 91 H 88 L 09/25/18 19:11 88 98 09/25/18 19:06 119 H 97 09/25/18 19:01 90 98 09/25/18 19:00 107 H 85 L 09/25/18 18:58 36.8 C 88 18 136/75 09/25/18 18:56 128 H 73 L 09/25/18 18:54 90 87 L 09/25/18 18:51 84 97 09/25/18 18:46 93 H 99 09/25/18 18:41 94 H 100 09/25/18 18:36 93 H 100 09/25/18 18:31 71 99 09/25/18 18:29 89 124/84 09/25/18 18:28 36.9 C 18 09/25/18 18:26 92 H 96 09/25/18 18:21 77 99 09/25/18 18:16 73 99 09/25/18 18:15 66 91 09/25/18 18:13 75 125/71 09/25/18 18:11 79 98 09/25/18 18:06 82 98 09/25/18 18:01 88 95 09/25/18 18:00 84 130/76 0607 17:56 92 H 98 09/25/18 17:51 86 98 06 17:46 85 98 09/25/18 17:43 81 126/79 06 17:41 83 99 09/25/18 17:36 82 100 06 17:31 90 100 06 17:28 78 125/76 09/25/18 17:26 83 100 07 17:21 85 98 06 17:16 100 H 97 09/25/18 17:14 79 126/72 09/25/18 17:11 68 99 09/25/18 17:06 72 98 09/25/18 17:01 76 98 09/25/18 16:58 71 127/72 09/25/18 16:56 78 98 09/25/18 16:51 76 100 09/25/18 16:46 90 99 09/25/18 16:45 78 114/65 09/25/18 16:41 93 H 99 09/25/18 16:36 78 100 09/25/18 16:31 78 100 09/25/18 16:30 36.7 C 18 09/25/18 16:28 72 135/88 09/25/18 16:26 69 98 09/25/18 16:21 67 97 09/25/18 16:16 71 98 09/25/18 16:14 76 131/85 09/25/18 16:11 71 98 09/25/18 16:06 73 98 09/25/18 16:01 80 100 09/25/18 15:59 78 130/87 07 15:56 83 99 09/25/18 15:51 79 98 09/25/18 15:46 82 96 09/25/18 15:43 74 124/78 09/25/18 15:41 82 97 07 15:36 90 98 09/25/18 15:31 76 99 09/25/18 15:29 87 132/88 09/25/18 15:26 86 99 07 15:21 86 98 07 15:16 89 99 09/25/18 15:14 93 H 128/77 09/25/18 15:11 76 99 09/25/18 15:06 83 99 09/25/18 15:01 99 H 98 09/25/18 14:59 84 123/71 09/25/18 14:56 80 99 09/25/18 14:51 84 99 09/25/18 14:46 90 99 09/25/18 14:44 93 H 135/87 09/25/18 14:41 82 98 09/25/18 14:36 88 99 09/25/18 14:31 94 H 98 09/25/18 14:28 87 127/83 09/25/18 14:26 94 H 98 09/25/18 14:21 36.6 C 88 20 97 09/25/18 14:16 95 H 97 09/25/18 14:11 100 H 99 09/25/18 14:05 77 98 09/25/18 14:00 96 H 99 09/25/18 13:59 88 133/83 09/25/18 13:55 83 98 09/25/18 13:50 73 97 09/25/18 13:45 69 97 09/25/18 13:43 75 108/59 L 09/25/18 13:40 81 97 09/25/18 13:35 87 98 09/25/18 13:30 100 H 98 09/25/18 13:28 85 128/80 09/25/18 13:25 89 97 09/25/18 13:20 87 98 09/25/18 13:15 87 98 09/25/18 13:14 83 126/84 09/25/18 13:10 82 98 09/25/18 13:05 84 97 09/25/18 13:00 79 97 09/25/18 12:58 84 128/78 09/25/18 12:55 89 98 09/25/18 12:50 92 H 97 09/25/18 12:45 85 97 09/25/18 12:40 86 98 09/25/18 12:35 81 97 09/25/18 12:30 96 H 93 09/25/18 12:25 88 99 09/25/18 12:20 77 99 09/25/18 12:15 86 126/71 99 09/25/18 12:09 73 98 09/25/18 12:04 72 97 09/25/18 12:00 77 94/53 L 09/25/18 11:59 81 96 06/07 11:54 80 97 /07 11:49 78 98 06/11/06 11:44 88 98 /07 11:43 76 135/82 06/07 11:39 89 98 06/07 11:34 36.4 C L 82 20 98 09/25/18 11:31 85 132/82 07 11:29 90 98 07 11:24 89 97 09/25/18 11:19 99 H 97 09/25/18 11:14 86 108/65 97 09/25/18 11:09 76 97 09/25/18 11:04 71 97 09/25/18 10:59 76 97 09/25/18 10:58 82 112/60 09/25/18 10:54 78 97 09/25/18 10:49 90 97 09/25/18 10:44 84 97 09/25/18 10:43 78 125/70 09/25/18 10:39 85 97 09/25/18 10:34 76 97 09/25/18 10:29 78 97 09/25/18 10:28 81 138/82 /11/06 10:24 75 98 /11/06 10:19 78 99 09/25/18 10:14 98 H 100 09/25/18 10:13 93 H 136/78 09/25/18 10:09 88 99 09/25/18 10:04 74 97 09/25/18 09:59 74 98 09/25/18 09:58 78 124/77 09/25/18 09:54 73 97 09/25/18 09:49 71 97 09/25/18 09:44 78 99 09/25/18 09:43 77 130/78
--- NOTE | 2018-09-25 22:26 | Communication Note ---
Date of Service: September 25, 2018 Patient has pushed for another 30 + minutes and the baby has remained in same station. Discussed the situation and she wishes to proceed with c/s. r/b/se discussed. Consent reviewed and signed. she does not want a trial of vacuum and I think this is the best decision. She is tearful but expresses understanding . efm--150s with mod variability, rare variable. Pit off. Has stopped pushing but still feels lots of pressure with contractions. Will be prepared for the possibility of pph given prolonged rupture and prolonged pitocin.
--- NOTE | 2018-09-25 22:27 | Anesthesiology Consultation ---
Date of Service September 25, 2018 Assessment & Plan (1) Encounter for pre-operative examination: Chart Review Chart Review: Acceptable Risk for Surgery and Patient NOT seen in Pre Admission Testing Consults Requested none ASA ASA2 Proposed Anesthesia Anesthesia Type: Labor Epidural Risk / Benefits Reviewed With: PT / POA / Parent / Guardian, Accepts Plan and Informed Consent Obtained Additional Notes Attempt to convert existing labor epidural for . If unsuccessful, patient will require a GA. History Height/Weight Height: 5 ft 6 in Weight: 74.843 kg Allergies Allergy/AdvReac Type Severity Reaction Status Date / Time No Known Allergies Allergy Verified 09/23/18 22:30 Medications Home Medications Medication Instructions Recorded Confirmed Last Taken Vitamin 1 tab PO DAILY 09/23/18 09/23/18 09/23/18 Active Medications Generic Name Dose Route Start Last Admin Trade Name Freq PRN Reason Stop Dose Admin Lactated Ringer's 1,000 mls @ 125 mls/hr 09/23/18 22:41 09/25/18 22:27 Lr IV 09/25/18 22:40 999 mls/hr .Q8H PRN Administration L&D Protocol Protocol Oxytocin 30 units in 500 mls @ 0 mls/hr 09/23/18 22:41 09/25/18 22:19 Pitocin IV 10/23/18 22:40 0 units/hr .Q0M PRN 0 mls/hr Bleeding Control Titration Protocol 0 UNITS/HR Penicillin G Potassium 3 mu/ 106 mls @ 100 mls/hr 09/23/18 22:41 09/25/18 21:33 Dextrose IV 10/03/18 22:40 100 mls/hr Q4H PRN Administration Give until delivery Oxytocin 30 units in 500 mls @ 350 mls/hr 09/23/18 23:38 09/25/18 12:22 Pitocin IV 09/25/18 23:37 Infused .[id number] PRN Titration Labor Induction/Augmentation Protocol 21 UNITS/HR NPO Date Last Intake of Fluids: 09/24/18 Time Last Intake of Fluids: 15:00 Date Last Intake of Solids: 09/24/18 Time Last Intake of Solids: 05:00 Social History Smoking Status: Never smoker Hx Alcohol Use: No Hx Substance Use: No Physical Exam Vital Signs Last Vital Signs Temp 36.7 C 09/25/18 20:55 Pulse 90 09/25/18 22:23 Resp 16 09/25/18 21:58 BP 132/74 09/25/18 22:14 Pulse Ox 98 09/25/18 22:23 ENMT Mouth: no TMJ abnormality and oral opening not small Neck normal visual inspection; neck extension not limited Respiratory normal respiratory effort Auscultation: lungs clear to auscultation bilaterally Cardiovascular Rate/Rhythm: regular rate and regular rhythm Heart Sounds: no murmur Neurologic moves all extremities Motor/Sensory: no sensory deficit Psychiatric Orientation: alert and oriented x 3 Testing Laboratory Results 09/23/18 22:53
[2018-09-25] MEDS ORDERED: METHYLERGONOVINE MALEATE 0.2 MG/ML AMP ONE (22:39)
[2018-09-25] MEDS ORDERED: CARBOPROST TROMETHAMINE 250 MCG/ML AMPUL ONE (22:39)
[2018-09-25] MEDS ORDERED: TRANEXAMIC ACID 100 MG/ML 10 ML VIAL ONE (22:40)
[2018-09-25] MEDS ORDERED: miSOPROStol 200 MCG TAB ONE (22:41)
[2018-09-25] MEDS ORDERED: CEFAZOLIN 2000MG 2,000 MG/15 ML SYR IV ONE (22:45)
[2018-09-25] MEDS ORDERED: CITRIC ACID/SODIUM CITRATE 15 ML UDC PO SCH (22:45)
[2018-09-25] MEDS ORDERED: OXYTOCIN 10 UNITS/ML VIAL ONE ×3 (23:39→23:41)
[2018-09-25] MEDS ORDERED: LIDOCAINE/EPINEPHRINE 2% 1:200,000 20 ML SDV ONE (23:40)
[2018-09-25] MEDS ORDERED: ONDANSETRON INJ 2 MG/ML 2 ML VIAL ONE (23:40)
[2018-09-25] MEDS ORDERED: PHENYLEPHRINE HCL 10 MG/ML VIAL ONE (23:40)
[2018-09-25] MEDS ORDERED: MoRPHine SULFATE PF 1 MG/ML 10 ML AMP/VIAL ONE (23:43)
[2018-09-25] MEDS ORDERED: NO NARCOTICS OR SEDATIVES SCH (23:45)
[2018-09-25] MEDS ORDERED: SODIUM CHLORIDE 0.9% 1000ML 1,000 ML IV SCH (23:45)
[2018-09-25] MEDS ORDERED: MEPERIDINE HCL 25 MG/ML CARP IV PRN (23:48)
[2018-09-25] MEDS ORDERED: LACTATED RINGER'S 500 ML IV PRN (23:48)
[2018-09-25] MEDS ORDERED: PROMETHAZINE HCL 25 MG in SODIUM CHLORIDE 0.9% 50 ML IV PRN (23:48)
[2018-09-25] MEDS ORDERED: NALOXONE HCL 0.08 MG in SYRINGE 1.8 ML IV PRN (23:48)
[2018-09-25] MEDS ORDERED: MoRPHine SULFATE PF 1 MG/ML 10 ML AMP/VIAL EPI ONE (23:48)
[2018-09-25] MEDS ORDERED: MoRPHine SULFATE 2 MG/ML CARP IV PRN (23:48)
--- NOTE | 2018-09-25 23:59 | Post Operative Brief Note ---
Immediate Post Op Note v1 Date of Surgery September 25, 2018 Pre & Post Diagnosis Operation Date: 09/25/18 23:10 Pre-Op Diagnosis: IUP @ 38 weeks Failure to descend Post-Op Diagnosis: Same as pre-operative Procedure Operation Date: 09/25/18 23:10 Actual Procedures p Primary low transverse Section in LD(Bilateral) - Macie Trinh MD, FACOG Surgeon Macie Trinh MD, FACOG Cafe Lead Dr. Palmer Estimated Blood Loss 600 Findings Consistent with Post-Op Diagnosis Drains Garcia Catheter
--- NOTE | 2018-09-26 00:11 | Anesthesia Procedure Note ---
Date of Service September 26, 2018 Anesthesia Post Epidural Note Vital Signs Vital Signs: Temp Pulse Resp BP Pulse Ox 36.7 C 94 H 16 129/72 96 09/25/18 22:52 09/25/18 22:55 09/25/18 22:52 09/25/18 22:55 09/25/18 22:43 Pain Intensity Bilateral Lower Abdomen: Pain Intensity: 2 Notes Mental Status: alert / awake / arousable Patient Amnestic to Procedure: No Nausea / Vomiting: adequately controlled Pain: adequately controlled Airway Patency, RR, SpO2: stable & adequate BP & HR: stable & adequate Hydration State: stable & adequate Neuraxial Anesthesia: was administered and sensory block is resolving Anesthetic Complications: no major complications apparent and Pt Satisfied with anesthetic care Epidural: Removed without complications and With tip intact
[2018-09-26] MEDS: KETOROLAC 30 MG/ML VIAL IV PRN ×3 (00:13→11:45)
--- NOTE | 2018-09-26 00:19 | Anesthesiology Progress Note ---
Date of Service September 26, 2018 Anesthesia Post Procedure Vital Signs Vital Signs: Temp Pulse Resp BP Pulse Ox 09/25/18 22:55 94 H 129/72 09/25/18 22:52 36.7 C 100 H 16 128/59 L 09/25/18 22:43 91 H 96 09/25/18 22:38 84 98 09/25/18 22:33 84 98 09/25/18 22:28 84 122/73 98 09/25/18 22:23 90 98 09/25/18 22:18 99 H 96 09/25/18 22:14 86 132/74 09/25/18 22:13 73 99 09/25/18 22:08 85 97 09/25/18 22:03 82 96 09/25/18 22:02 101 H 90 09/25/18 21:58 89 16 121/68 95 09/25/18 21:53 84 97 09/25/18 21:48 97 H 85 L 09/25/18 21:45 18 09/25/18 21:43 88 96 09/25/18 21:42 93 H 85 L 09/25/18 21:38 118 H 98 09/25/18 21:33 82 98 09/25/18 21:28 111 H 97 09/25/18 21:23 104 H 94 09/25/18 21:21 103 H 88 L 09/25/18 21:18 86 98 09/25/18 21:15 20 09/25/18 21:14 85 124/78 09/25/18 21:13 83 98 09/25/18 21:09 85 82 L 09/25/18 21:08 82 97 09/25/18 21:03 104 H 97 09/25/18 20:59 98 H 89 L 09/25/18 20:58 86 99 09/25/18 20:55 36.7 C 18 09/25/18 20:53 96 H 99 09/25/18 20:48 117 H 98 09/25/18 20:43 106 H 98 09/25/18 20:41 95 H 90 09/25/18 20:38 96 H 99 09/25/18 20:33 91 H 98 09/25/18 20:29 20 09/25/18 20:28 130 H 20 153/73 H 96 09/25/18 20:23 98 H 98 09/25/18 20:19 122 H 90 09/25/18 20:18 109 H 100 09/25/18 20:14 88 20 129/78 09/25/18 20:13 87 98 09/25/18 20:08 108 H 97 09/25/18 20:03 82 97 09/25/18 19:59 93 H 20 128/60 90 09/25/18 19:58 87 97 09/25/18 19:53 92 H 96 09/25/18 19:52 103 H 84 L 09/25/18 19:48 83 96 09/25/18 19:47 85 86 L 09/25/18 19:43 84 18 129/80 96 09/25/18 19:38 98 H 96 09/25/18 19:36 104 H 85 L 09/25/18 19:33 99 H 97 09/25/18 19:30 100 H 90 09/25/18 19:28 102 H 97 09/25/18 19:24 95 H 84 L 09/25/18 19:22 99 H 97 09/25/18 19:18 107 H 89 L 09/25/18 19:16 112 H 96 09/25/18 19:14 90 133/84 09/25/18 19:12 91 H 88 L 09/25/18 19:11 88 98 09/25/18 19:06 119 H 97 09/25/18 19:01 90 98 09/25/18 19:00 107 H 85 L 09/25/18 18:58 36.8 C 88 18 136/75 09/25/18 18:56 128 H 73 L 09/25/18 18:54 90 87 L 09/25/18 18:51 84 97 09/25/18 18:46 93 H 99 09/25/18 18:41 94 H 100 09/25/18 18:36 93 H 100 09/25/18 18:31 71 99 09/25/18 18:29 89 124/84 09/25/18 18:28 36.9 C 18 09/25/18 18:26 92 H 96 09/25/18 18:21 77 99 09/25/18 18:16 73 99 09/25/18 18:15 66 91 09/25/18 18:13 75 125/71 09/25/18 18:11 79 98 09/25/18 18:06 82 98 06/07 18:01 88 95 0607 18:00 84 130/76 0607 17:56 92 H 98 09/25/18 17:51 86 98 06 17:46 85 98 09/25/18 17:43 81 126/79 09/25/18 17:41 83 99 07 17:36 82 100 0607 17:31 90 100 06 17:28 78 125/76 09/25/18 17:26 83 100 09/25/18 17:21 85 98 09/25/18 17:16 100 H 97 09/25/18 17:14 79 126/72 09/25/18 17:11 68 99 09/25/18 17:06 72 98 09/25/18 17:01 76 98 09/25/18 16:58 71 127/72 09/25/18 16:56 78 98 09/25/18 16:51 76 100 09/25/18 16:46 90 99 09/25/18 16:45 78 114/65 09/25/18 16:41 93 H 99 09/25/18 16:36 78 100 09/25/18 16:31 78 100 09/25/18 16:30 36.7 C 18 09/25/18 16:28 72 135/88 09/25/18 16:26 69 98 09/25/18 16:21 67 97 09/25/18 16:16 71 98 09/25/18 16:14 76 131/85 09/25/18 16:11 71 98 09/25/18 16:06 73 98 09/25/18 16:01 80 100 09/25/18 15:59 78 130/87 09/25/18 15:56 83 99 09/25/18 15:51 79 98 07 15:46 82 96 07 15:43 74 124/78 09/25/18 15:41 82 97 07 15:36 90 98 09/25/18 15:31 76 99 07 15:29 87 132/88 09/25/18 15:26 86 99 07 15:21 86 98 09/25/18 15:16 89 99 09/25/18 15:14 93 H 128/77 09/25/18 15:11 76 99 09/25/18 15:06 83 99 09/25/18 15:01 99 H 98 09/25/18 14:59 84 123/71 09/25/18 14:56 80 99 09/25/18 14:51 84 99 09/25/18 14:46 90 99 09/25/18 14:44 93 H 135/87 09/25/18 14:41 82 98 09/25/18 14:36 88 99 09/25/18 14:31 94 H 98 09/25/18 14:28 87 127/83 09/25/18 14:26 94 H 98 09/25/18 14:21 36.6 C 88 20 97 09/25/18 14:16 95 H 97 09/25/18 14:11 100 H 99 09/25/18 14:05 77 98 09/25/18 14:00 96 H 99 09/25/18 13:59 88 133/83 09/25/18 13:55 83 98 09/25/18 13:50 73 97 09/25/18 13:45 69 97 09/25/18 13:43 75 108/59 L 09/25/18 13:40 81 97 09/25/18 13:35 87 98 09/25/18 13:30 100 H 98 09/25/18 13:28 85 128/80 09/25/18 13:25 89 97 09/25/18 13:20 87 98 09/25/18 13:15 87 98 09/25/18 13:14 83 126/84 09/25/18 13:10 82 98 09/25/18 13:05 84 97 09/25/18 13:00 79 97 09/25/18 12:58 84 128/78 09/25/18 12:55 89 98 09/25/18 12:50 92 H 97 09/25/18 12:45 85 97 09/25/18 12:40 86 98 09/25/18 12:35 81 97 09/25/18 12:30 96 H 93 09/25/18 12:25 88 99 09/25/18 12:20 77 99 09/25/18 12:15 86 126/71 99 09/25/18 12:09 73 98 09/25/18 12:04 72 97 06/07/19 12:00 77 94/53 L 09/25/18 11:59 81 96 09/25/18 11:54 80 97 09/25/18 11:49 78 98 09/25/18 11:44 88 98 09/25/18 11:43 76 135/82 09/25/18 11:39 89 98 09/25/18 11:34 36.4 C L 82 20 98 09/25/18 11:31 85 132/82 09/25/18 11:29 90 98 09/25/18 11:24 89 97 09/25/18 11:19 99 H 97 09/25/18 11:14 86 108/65 97 09/25/18 11:09 76 97 09/25/18 11:04 71 97 09/25/18 10:59 76 97 09/25/18 10:58 82 112/60 09/25/18 10:54 78 97 09/25/18 10:49 90 97 09/25/18 10:44 84 97 09/25/18 10:43 78 125/70 09/25/18 10:39 85 97 09/25/18 10:34 76 97 09/25/18 10:29 78 97 09/25/18 10:28 81 138/82 09/25/18 10:24 75 98 09/25/18 10:19 78 99 09/25/18 10:14 98 H 100 09/25/18 10:13 93 H 136/78 09/25/18 10:09 88 99 09/25/18 10:04 74 97 09/25/18 09:59 74 98 09/25/18 09:58 78 124/77 09/25/18 09:54 73 97 09/25/18 09:49 71 97 09/25/18 09:44 78 99 09/25/18 09:43 77 130/78 09/25/18 09:39 87 98 09/25/18 09:34 91 H 98 09/25/18 09:29 93 H 99 09/25/18 09:28 36.7 C 20 09/25/18 09:23 96 H 97 09/25/18 09:18 85 98 09/25/18 09:13 86 98 09/25/18 09:08 76 98 06/07/19 09:03 78 98 0619 08:58 69 127/81 98 09/25/18 08:56 76 127/76 09/25/18 08:54 81 130/78 09/25/18 08:53 88 99 09/25/18 08:52 74 131/78 09/25/18 08:50 77 130/78 09/25/18 08:48 74 126/80 97 09/25/18 08:46 70 132/77 09/25/18 08:44 82 119/75 09/25/18 08:43 87 99 09/25/18 08:42 75 113/74 09/25/18 08:40 69 109/60 09/25/18 08:38 72 98 09/25/18 08:33 76 96 09/25/18 08:28 69 95 09/25/18 08:27 76 118/72 09/25/18 08:23 73 98 09/25/18 08:18 65 97 09/25/18 08:13 72 113/67 98 09/25/18 08:08 71 99 09/25/18 08:03 73 99 09/25/18 07:58 95 H 126/81 98 09/25/18 07:53 93 H 98 09/25/18 07:48 94 H 96 09/25/18 07:41 95 H 96 09/25/18 07:36 96 H 96 09/25/18 07:31 102 H 96 09/25/18 07:27 36.7 C 105 H 20 123/75 09/25/18 07:26 108 H 96 09/25/18 07:25 99 H 89 L 09/25/18 07:21 88 97 09/25/18 07:16 86 97 09/25/18 07:12 92 H 124/73 09/25/18 07:11 92 H 97 09/25/18 07:06 92 H 97 09/25/18 07:01 84 97 09/25/18 06:57 93 H 136/81 09/25/18 06:56 78 96 09/25/18 06:51 91 H 98 09/25/18 06:46 88 95 09/25/18 06:43 81 135/76 09/25/18 06:41 93 H 95 09/25/18 06:36 82 95 09/25/18 06:31 108 H 96 09/25/18 06:27 100 H 16 123/79 09/25/18 06:26 82 95 09/25/18 06:21 92 H 97 09/25/18 06:19 71 89 L 09/25/18 06:16 77 96 09/25/18 06:13 92 H 124/70 09/25/18 06:11 108 H 96 09/25/18 06:06 103 H 97 09/25/18 06:01 79 96 09/25/18 05:59 83 18 128/59 L 09/25/18 05:56 84 96 09/25/18 05:54 36.8 C 18 09/25/18 05:51 73 96 09/25/18 05:46 90 96 09/25/18 05:42 80 110/59 L 09/25/18 05:41 77 96 09/25/18 05:36 75 96 09/25/18 05:31 83 96 09/25/18 05:27 75 111/56 L 09/25/18 05:26 70 95 09/25/18 05:21 90 95 09/25/18 05:16 81 95 09/25/18 05:15 88 16 128/78 09/25/18 05:11 94 H 97 09/25/18 05:06 86 97 09/25/18 05:01 92 H 96 09/25/18 04:57 85 16 117/70 09/25/18 04:56 103 H 95 09/25/18 04:51 36.9 C 93 H 16 96 09/25/18 04:47 78 94 09/25/18 04:46 74 95 09/25/18 04:41 72 95 09/25/18 04:38 72 94 09/25/18 04:36 79 94 09/25/18 04:35 75 109/56 L 09/25/18 04:33 75 94 09/25/18 04:31 75 94 09/25/18 04:26 75 94 09/25/18 04:21 79 94 09/25/18 04:20 77 16 112/58 L 94 09/25/18 04:16 77 94 09/25/18 04:12 74 94 09/25/18 04:11 80 95 09/25/18 04:07 73 94 09/25/18 04:06 77 95 09/25/18 04:04 78 105/56 L 09/25/18 04:01 95 H 95 09/25/18 03:56 81 96 09/25/18 03:55 36.9 C 89 18 94 09/25/18 03:51 80 95 09/25/18 03:49 74 114/62 94 09/25/18 03:46 76 95 09/25/18 03:44 73 94 09/25/18 03:41 73 95 09/25/18 03:36 75 95 09/25/18 03:35 85 110/64 94 09/25/18 03:31 86 96 09/25/18 03:26 91 H 96 09/25/18 03:21 86 94 09/25/18 03:20 84 122/75 94 09/25/18 03:16 83 94 09/25/18 03:13 84 94 09/25/18 03:11 86 96 09/25/18 03:06 90 95 09/25/18 03:04 92 H 129/65 09/25/18 03:01 82 95 09/25/18 02:59 88 94 09/25/18 02:56 85 95 09/25/18 02:52 81 94 09/25/18 02:51 82 95 09/25/18 02:49 96 H 124/62 09/25/18 02:46 91 H 96 09/25/18 02:45 90 94 09/25/18 02:41 118 H 96 09/25/18 02:36 98 H 95 09/25/18 02:35 109 H 16 135/60 09/25/18 02:31 83 94 09/25/18 02:26 76 94 09/25/18 02:21 75 94 09/25/18 02:20 76 94 09/25/18 02:19 90 103/57 L 09/25/18 02:16 80 95 09/25/18 02:15 84 94 09/25/18 02:11 83 95 09/25/18 02:10 78 94 09/25/18 02:06 80 95 09/25/18 02:05 84 107/55 L 09/25/18 02:03 73 94 09/25/18 02:01 76 95 09/25/18 01:56 36.7 C 86 16 96 09/25/18 01:51 85 95 09/25/18 01:50 86 94 09/25/18 01:49 85 110/63 09/25/18 01:46 77 94 09/25/18 01:43 80 94 09/25/18 01:41 92 H 94 09/25/18 01:37 82 94 09/25/18 01:36 78 95 09/25/18 01:34 87 16 120/68 09/25/18 01:31 92 H 94 09/25/18 01:26 81 94 09/25/18 01:25 89 94 09/25/18 01:21 92 H 94 09/25/18 01:19 83 112/65 94 09/25/18 01:16 91 H 95 09/25/18 01:14 81 94 09/25/18 01:11 93 H 95 09/25/18 01:08 79 94 09/25/18 01:06 107 H 96 09/25/18 01:04 96 H 18 135/79 09/25/18 01:01 84 95 09/25/18 00:56 98 H 95 09/25/18 00:51 76 95 09/25/18 00:49 76 98/57 L 93 09/25/18 00:46 69 95 09/25/18 00:41 73 95 09/25/18 00:36 74 94 09/25/18 00:34 36.6 C 89 16 106/59 L 09/25/18 00:31 81 96 09/25/18 00:26 73 95 09/25/18 00:21 72 96 09/25/18 00:19 74 105/59 L Pain Intensity Bilateral Lower Abdomen: Pain Intensity: 2 Notes Mental Status: alert / awake / arousable Patient Amnestic to Procedure: No Nausea / Vomiting: adequately controlled Pain: adequately controlled Airway Patency, RR, SpO2: stable & adequate BP & HR: stable & adequate Hydration State: stable & adequate Neuraxial Anesthesia: was administered and sensory block is resolving Anesthetic Complications: no major complications apparent and Pt Satisfied with anesthetic care
--- NOTE | 2018-09-26 00:35 | Operative Report ---
DATE OF OPERATION: 09/25/2018 PREOPERATIVE DIAGNOSES: 1. Intrauterine at 38+ weeks. 2. Failure to descend POSTOPERATIVE DIAGNOSES: 1. Intrauterine at 38+ weeks. 2. Failure to descend PROCEDURE: Primary low transverse section. SURGEON: Macie Trinh MD. ADVERTISING STATISTICAL CLERK: Dr. Palmer. ANESTHESIA: Epidural. ESTIMATED BLOOD LOSS: 600 mL. FLUIDS: 1500 mL. URINE OUTPUT: 300 mL of concentrated urine drained from the bladder at the end of the procedure. INDICATIONS: Romelia is a 1, para 0 who presented 2 days ago with premature rupture of membranes and cervix closed. She underwent a prolonged induction with Pitocin augmentation, penicillin for GBS positive status, intrauterine pressure catheter and made slow positive progress until she was finally 10 cm dilated and +1 station. She pushed for 3 hours and could not get the baby past +2 station. There was significant caput and molding. Decision made to proceed with section for failure to descend. FINDINGS: Viable male in cephalic presentation, SWATI presentation. There was a loose nuchal/body cord noted. Clear fluid was noted. Normal uterus, tubes, and ovaries were noted bilaterally. Apgars 9 and 9. Weight is 7 pounds 8.4 ounces. COMPLICATIONS: None. DRAINS: Garcia. DISPOSITION: To recovery room in stable condition. DESCRIPTION OF PROCEDURE: The patient was taken to the operating room where she was identified verbally and by bracelet. She was placed in dorsal supine position with a leftward tilt. Garcia catheter had been previously placed. Her epidural was dosed. She was prepped and draped in normal sterile fashion. Her epidural was tested and found to be adequate. A time-out was held, identifying correct patient, procedure, positioning, and preoperative antibiotic. There were no concerns. A Pfannenstiel skin incision was made with a knife and taken down to the underlying layer of fascia with Bovie electrocautery. Bleeding was attended to with Bovie electrocautery. The fascia was incised in the midline with the knife, taken out laterally with scissors. The superior edge of fascial incision was grasped, elevated and the underlying layer of rectus muscle was taken off bluntly with scissors and Bovie electrocautery. In a similar fashion, the inferior edge of the fascial incision was grasped, elevated and the underlying layer of rectus muscles was taken off bluntly with scissors. The muscles were bluntly and sharply in the midline. The peritoneum was entered high bluntly. The incision was stretched, the bladder blade was placed. The vesicouterine peritoneum was identified and entered with scissors, taken out laterally with scissors and the bladder flap was created digitally. The bladder blade was replaced. Hysterotomy was scored with a knife. It was entered with a snap. The incision was stretched with the casting machine set up operator's fingers. The casting machine set up operator's hand was carefully placed into the uterus and flatly placed over the head until I could wrap my fingers around the vertex. Then pulling straight up and releasing suction, the vertex was then delivered through the incision. There was clear fluid. The nose and mouth were bulb suctioned. The baby was delivered through a body cord and the rest baby was then delivered. The cord was clamped and cut. The infant was handed off to waiting pediatricians for drying and attention. Cord blood was obtained for collection. The placenta was expressed from the uterus. The uterus was exteriorized and cleared of all clot and debris with moistened laparotomy sponges. The edge of the uterine incision was noted with a ring forceps. The incision was closed in 2 layers, the first in a running locked layer, the second in an imbricating layer. One [id number] suture was needed for hemostasis. Posterior cul-de-sac was irrigated and cleared of all clot and debris. The hysterotomy incision was again inspected and found to be hemostatic. The uterus was reanteriorized and then another [id number] suture was needed for hemostasis and then it was assured. The muscles were reapproximated in the midline. The fascia was then reapproximated starting at the edges meeting in the midline. The subcuticular tissue was copiously irrigated and bleeding was attended to with Bovie electrocautery. The subcuticular fat was brought together with several interrupted horizontal mattress sutures and the skin was then closed with 4-0 Vicryl in subcuticular fashion. All sponge, lap and needle counts were correct x2. The patient tolerated the procedure well and was taken to recovery room in stable condition. I attest to the content of the Intraoperative Record and any orders documented therein. Any exceptions are noted below. MACARENA
[2018-09-26] MEDS ORDERED: HYDROCORTISONE ACETATE 25 MG SUPP PR PRN (01:52)
[2018-09-26] MEDS ORDERED: SENNA 8.6 MG TAB PO PRN (01:52)
[2018-09-26] MEDS ORDERED: BENZOCAINE 20% AER SPR 82.5 GM CAN EXT PRN (01:52)
[2018-09-26] MEDS ORDERED: SUPERCREAM 0.870% 15 GM JAR EXT PRN (01:52)
[2018-09-26] MEDS ORDERED: LACTATED RINGER'S 1,000 ML IV SCH (01:52)
[2018-09-26] MEDS ORDERED: MAGNESIUM HYDROXIDE SUSP 30 ML UDC PO PRN (01:52)
[2018-09-26] MEDS ORDERED: DIPHTHERIA/TETANUS/PERTUSSIS 0.5 ML SYR/VIAL IM ONE (01:52)
[2018-09-26] MEDS ORDERED: OXYTOCIN 20 UNITS in LACTATED RINGER'S 1,000 ML IV SCH (03:30)
--- NOTE | 2018-09-26 06:43 | Obstetrical Progress Note ---
Date of Service <Gerard Ambriz MD - Last Filed: 09/26/18 06:43> September 26, 2018 Assessment & Plan <Gerard Ambriz MD - Last Filed: 09/26/18 06:43> (1) delivery delivered: Romelia is a 28yo who presented at 38+3 now s/p for failure to progress POD#1 - GBS negative, blood type A+ - Olivier in place, on clears, no ambulation yet today - Remove olivier today, encourage ambulation, advance diet as tolerated - Pain well controlled with morphine 2-5mg IV Q10H PRN - Routine postop care - After discharge will have [address] Trinh. Subjective <Gerard Ambriz MD - Last Filed: 09/26/18 06:43> Ambulation: limited ambulation (wilson snot been out of bed yet) Voiding: olivier catheter in place Passing Gas:: No Diet Tolerance:: clear liquids Lochia:: Moderate Feeding Type:: breast feeding Current Pain Level(1-10): 0 Review of Systems Denies fever, chills, sweats Denies shortness of breath, difficulty breathing, chest pain, palpitations, chest pressure. Denies breast pain. Denies dysuria. Denies headache. Physical Exam <Gerard Ambriz MD - Last Filed: 09/26/18 06:43> General: Alert, oriented. No acute distress. Cardiac: Regular rate and rhythm, no murmurs/rubs/gallops. Respiratory: Clear to auscultation anterior and posteriorly, no wheezes/rales/rhonchi. No increased work of breathing. Symmetrical chest rise. No respiratory distress. Abdomen: Soft, nontender, nondistended. Bowel sounds present. Surgical dressing in place, small blood spots L of midline but not grossly soiled. Dry and intact. Uterus: Uterine fundus firm, palpable at umbilicus. Lower Extremities: No lower extremity edema or swelling. No deep calf pain. Mine's negative bilaterally. Results & Data <Gerard Ambriz MD - Last Filed: 09/26/18 06:43> Vital Signs (Past 12 Hours) Vital Signs Temp Pulse Pulse Resp BP BP Pulse Ox 09/26/18 06:36 16 100 09/26/18 05:30 18 99 09/26/18 04:15 36.6 C 72 18 130/77 99 09/26/18 03:25 18 98 09/26/18 02:50 36.5 C 81 18 122/77 96 09/26/18 02:06 36.5 C 16 09/26/18 01:36 16 09/26/18 01:06 16 09/26/18 00:56 16 09/26/18 00:46 18 09/26/18 00:36 16 09/26/18 00:26 16 09/26/18 00:16 16 09/26/18 00:06 36.5 C 18 09/25/18 22:55 94 H 129/72 09/25/18 22:52 36.7 C 100 H 16 128/59 L 09/25/18 22:43 91 H 96 09/25/18 22:38 84 98 09/25/18 22:33 84 98 09/25/18 22:28 84 122/73 98 09/25/18 22:23 90 98 09/25/18 22:18 99 H 96 09/25/18 22:14 86 132/74 09/25/18 22:13 73 99 09/25/18 22:08 85 97 09/25/18 22:03 82 96 09/25/18 22:02 101 H 90 09/25/18 21:58 89 16 121/68 95 09/25/18 21:53 84 97 09/25/18 21:48 97 H 85 L 09/25/18 21:45 18 09/25/18 21:43 88 96 09/25/18 21:42 93 H 85 L 09/25/18 21:38 118 H 98 09/25/18 21:33 82 98 09/25/18 21:28 111 H 97 09/25/18 21:23 104 H 94 09/25/18 21:21 103 H 88 L 09/25/18 21:18 86 98 09/25/18 21:15 20 09/25/18 21:14 85 124/78 09/25/18 21:13 83 98 09/25/18 21:09 85 82 L 09/25/18 21:08 82 97 09/25/18 21:03 104 H 97 09/25/18 20:59 98 H 89 L 09/25/18 20:58 86 99 09/25/18 20:55 36.7 C 18 09/25/18 20:53 96 H 99 09/25/18 20:48 117 H 98 09/25/18 20:43 106 H 98 09/25/18 20:41 95 H 90 09/25/18 20:38 96 H 99 09/25/18 20:33 91 H 98 09/25/18 20:29 20 09/25/18 20:28 130 H 20 153/73 H 96 09/25/18 20:23 98 H 98 09/25/18 20:19 122 H 90 09/25/18 20:18 109 H 100 09/25/18 20:14 88 20 129/78 09/25/18 20:13 87 98 09/25/18 20:08 108 H 97 09/25/18 20:03 82 97 09/25/18 19:59 93 H 20 128/60 90 09/25/18 19:58 87 97 09/25/18 19:53 92 H 96 09/25/18 19:52 103 H 84 L 09/25/18 19:48 83 96 09/25/18 19:47 85 86 L 09/25/18 19:43 84 18 129/80 96 09/25/18 19:38 98 H 96 09/25/18 19:36 104 H 85 L 09/25/18 19:33 99 H 97 09/25/18 19:30 100 H 90 09/25/18 19:28 102 H 97 09/25/18 19:24 95 H 84 L 09/25/18 19:22 99 H 97 09/25/18 19:18 107 H 89 L 09/25/18 19:16 112 H 96 09/25/18 19:14 90 133/84 09/25/18 19:12 91 H 88 L 09/25/18 19:11 88 98 09/25/18 19:06 119 H 97 09/25/18 19:01 90 98 09/25/18 19:00 107 H 85 L 09/25/18 18:58 36.8 C 88 18 136/75 09/25/18 18:56 128 H 73 L 09/25/18 18:54 90 87 L 09/25/18 18:51 84 97 09/25/18 18:46 93 H 99 09/25/18 18:41 94 H 100 <Macie Trinh MD, FACOG - Last Filed: 09/26/18 07:36> Co-Signing Physician Notes Resident Physician Supervision Note: I interviewed and examined the patient. Discussed with Dr. Ambriz and agree with findings and plan as documented in the note. Any exceptions or clarifications are listed here: Doing well. Continue routine PP care. Documented By: Macie Trinh MD, FACOG Resident Activity Tracking <Gerard Ambriz MD - Last Filed: 09/26/18 06:43> Resident Involvement: Resident Care Provided Care Provided: Adult [facility]
[2018-09-26 07:06] LABS: Basophils # (auto) 0.01 K/uL (0-0.2); Basophils % (auto) 0.1 %; Hematocrit (blood only) 30.1 % (37-47); Hemoglobin 10.6 g/dL (12.0-16.0); Immature Granulocytes # (auto) 0.09 K/uL (0.00-0.02); Immature Granulocytes % (auto) 0.5 %; Lymphocytes # (auto) 1.25 K/uL (1.2-3.4); Lymphocytes % (auto) 7.4 %; Mean Corpuscular Hgb Conc 35.2 g/dL (32-36); Mean Platelet Volume 9.6 fL (7.4-10.4); Monocytes # (auto) 1.17 K/uL (0.11-0.59); Monocytes % (auto) 6.9 %; Neutrophils # (auto) 14.34 K/uL (1.4-6.5); Neutrophils % (auto) 85.1 %; Platelet Count 186 K/uL (130-400); RDW Coefficient of Variation 12.5 % (11.5-14.5); RDW Standard Deviation 39.4 fL (36.4-46.3); Red Blood Count 3.46 M/uL (4.2-5.4); White Blood Count 16.86 K/uL (4.8-10.8)
[2018-09-26] MEDS: SIMETHICONE 80 MG CHEW PO SCH ×4 (08:29→19:54)
[2018-09-26] MEDS: PRENATAL VITAMIN 1 TAB PO SCH (08:44)
[2018-09-26] MEDS: FERROUS SULFATE 325 MG TAB PO SCH (08:44)
[2018-09-26] MEDS: DOCUSATE SODIUM 100 MG CAP PO SCH ×2 (08:44→19:54)
--- NOTE | 2018-09-26 10:13 | Anesthesiology Progress Note ---
Date of Service September 26, 2018 Anesthesia Post Procedure Vital Signs Vital Signs: Temp Pulse Pulse Resp BP BP Pulse Ox 09/26/18 07:30 37.1 C 76 18 117/79 100 09/26/18 06:36 16 100 09/26/18 05:30 18 99 09/26/18 04:15 36.6 C 72 18 130/77 99 09/26/18 03:25 18 98 09/26/18 02:50 36.5 C 81 18 122/77 96 09/26/18 02:06 36.5 C 16 09/26/18 01:36 16 09/26/18 01:06 16 09/26/18 00:56 16 09/26/18 00:46 18 09/26/18 00:36 16 09/26/18 00:26 16 09/26/18 00:16 16 09/26/18 00:06 36.5 C 18 09/25/18 22:55 94 H 129/72 09/25/18 22:52 36.7 C 100 H 16 128/59 L 09/25/18 22:43 91 H 96 09/25/18 22:38 84 98 09/25/18 22:33 84 98 09/25/18 22:28 84 122/73 98 09/25/18 22:23 90 98 09/25/18 22:18 99 H 96 09/25/18 22:14 86 132/74 09/25/18 22:13 73 99 09/25/18 22:08 85 97 09/25/18 22:03 82 96 09/25/18 22:02 101 H 90 09/25/18 21:58 89 16 121/68 95 09/25/18 21:53 84 97 09/25/18 21:48 97 H 85 L 09/25/18 21:45 18 09/25/18 21:43 88 96 09/25/18 21:42 93 H 85 L 09/25/18 21:38 118 H 98 09/25/18 21:33 82 98 09/25/18 21:28 111 H 97 09/25/18 21:23 104 H 94 09/25/18 21:21 103 H 88 L 09/25/18 21:18 86 98 09/25/18 21:15 20 09/25/18 21:14 85 124/78 09/25/18 21:13 83 98 09/25/18 21:09 85 82 L 09/25/18 21:08 82 97 09/25/18 21:03 104 H 97 09/25/18 20:59 98 H 89 L 09/25/18 20:58 86 99 09/25/18 20:55 36.7 C 18 09/25/18 20:53 96 H 99 09/25/18 20:48 117 H 98 09/25/18 20:43 106 H 98 09/25/18 20:41 95 H 90 09/25/18 20:38 96 H 99 09/25/18 20:33 91 H 98 09/25/18 20:29 20 09/25/18 20:28 130 H 20 153/73 H 96 09/25/18 20:23 98 H 98 09/25/18 20:19 122 H 90 09/25/18 20:18 109 H 100 09/25/18 20:14 88 20 129/78 09/25/18 20:13 87 98 09/25/18 20:08 108 H 97 09/25/18 20:03 82 97 09/25/18 19:59 93 H 20 128/60 90 09/25/18 19:58 87 97 09/25/18 19:53 92 H 96 09/25/18 19:52 103 H 84 L 09/25/18 19:48 83 96 09/25/18 19:47 85 86 L 09/25/18 19:43 84 18 129/80 96 09/25/18 19:38 98 H 96 09/25/18 19:36 104 H 85 L 09/25/18 19:33 99 H 97 09/25/18 19:30 100 H 90 09/25/18 19:28 102 H 97 09/25/18 19:24 95 H 84 L 09/25/18 19:22 99 H 97 09/25/18 19:18 107 H 89 L 09/25/18 19:16 112 H 96 09/25/18 19:14 90 133/84 09/25/18 19:12 91 H 88 L 09/25/18 19:11 88 98 09/25/18 19:06 119 H 97 09/25/18 19:01 90 98 09/25/18 19:00 107 H 85 L 09/25/18 18:58 36.8 C 88 18 136/75 09/25/18 18:56 128 H 73 L 09/25/18 18:54 90 87 L 09/25/18 18:51 84 97 09/25/18 18:46 93 H 99 09/25/18 18:41 94 H 100 09/25/18 18:36 93 H 100 09/25/18 18:31 71 99 09/25/18 18:29 89 124/84 09/25/18 18:28 36.9 C 18 09/25/18 18:26 92 H 96 09/25/18 18:21 77 99 09/25/18 18:16 73 99 09/25/18 18:15 66 91 09/25/18 18:13 75 125/71 09/25/18 18:11 79 98 09/25/18 18:06 82 98 09/25/18 18:01 88 95 09/25/18 18:00 84 130/76 09/25/18 17:56 92 H 98 09/25/18 17:51 86 98 09/25/18 17:46 85 98 09/25/18 17:43 81 126/79 09/25/18 17:41 83 99 09/25/18 17:36 82 100 09/25/18 17:31 90 100 09/25/18 17:28 78 125/76 09/25/18 17:26 83 100 09/25/18 17:21 85 98 09/25/18 17:16 100 H 97 09/25/18 17:14 79 126/72 09/25/18 17:11 68 99 09/25/18 17:06 72 98 09/25/18 17:01 76 98 09/25/18 16:58 71 127/72 09/25/18 16:56 78 98 09/25/18 16:51 76 100 09/25/18 16:46 90 99 09/25/18 16:45 78 114/65 09/25/18 16:41 93 H 99 09/25/18 16:36 78 100 09/25/18 16:31 78 100 09/25/18 16:30 36.7 C 18 09/25/18 16:28 72 135/88 09/25/18 16:26 69 98 09/25/18 16:21 67 97 09/25/18 16:16 71 98 06/07/19 16:14 76 131/85 09/25/18 16:11 71 98 09/25/18 16:06 73 98 09/25/18 16:01 80 100 09/25/18 15:59 78 130/87 09/25/18 15:56 83 99 09/25/18 15:51 79 98 09/25/18 15:46 82 96 09/25/18 15:43 74 124/78 09/25/18 15:41 82 97 09/25/18 15:36 90 98 09/25/18 15:31 76 99 09/25/18 15:29 87 132/88 09/25/18 15:26 86 99 09/25/18 15:21 86 98 09/25/18 15:16 89 99 09/25/18 15:14 93 H 128/77 09/25/18 15:11 76 99 09/25/18 15:06 83 99 09/25/18 15:01 99 H 98 09/25/18 14:59 84 123/71 09/25/18 14:56 80 99 09/25/18 14:51 84 99 09/25/18 14:46 90 99 09/25/18 14:44 93 H 135/87 09/25/18 14:41 82 98 09/25/18 14:36 88 99 09/25/18 14:31 94 H 98 09/25/18 14:28 87 127/83 09/25/18 14:26 94 H 98 09/25/18 14:21 36.6 C 88 20 97 09/25/18 14:16 95 H 97 09/25/18 14:11 100 H 99 09/25/18 14:05 77 98 09/25/18 14:00 96 H 99 09/25/18 13:59 88 133/83 09/25/18 13:55 83 98 09/25/18 13:50 73 97 09/25/18 13:45 69 97 09/25/18 13:43 75 108/59 L 09/25/18 13:40 81 97 09/25/18 13:35 87 98 09/25/18 13:30 100 H 98 09/25/18 13:28 85 128/80 09/25/18 13:25 89 97 09/25/18 13:20 87 98 09/25/18 13:15 87 98 09/25/18 13:14 83 126/84 09/25/18 13:10 82 98 09/25/18 13:05 84 97 09/25/18 13:00 79 97 09/25/18 12:58 84 128/78 09/25/18 12:55 89 98 09/25/18 12:50 92 H 97 09/25/18 12:45 85 97 09/25/18 12:40 86 98 09/25/18 12:35 81 97 09/25/18 12:30 96 H 93 09/25/18 12:25 88 99 09/25/18 12:20 77 99 09/25/18 12:15 86 126/71 99 09/25/18 12:09 73 98 09/25/18 12:04 72 97 09/25/18 12:00 77 94/53 L 09/25/18 11:59 81 96 09/25/18 11:54 80 97 09/25/18 11:49 78 98 09/25/18 11:44 88 98 09/25/18 11:43 76 135/82 09/25/18 11:39 89 98 09/25/18 11:34 36.4 C L 82 20 98 09/25/18 11:31 85 132/82 09/25/18 11:29 90 98 09/25/18 11:24 89 97 09/25/18 11:19 99 H 97 09/25/18 11:14 86 108/65 97 09/25/18 11:09 76 97 09/25/18 11:04 71 97 09/25/18 10:59 76 97 09/25/18 10:58 82 112/60 09/25/18 10:54 78 97 09/25/18 10:49 90 97 09/25/18 10:44 84 97 09/25/18 10:43 78 125/70 09/25/18 10:39 85 97 09/25/18 10:34 76 97 09/25/18 10:29 78 97 09/25/18 10:28 81 138/82 09/25/18 10:24 75 98 09/25/18 10:19 78 99 09/25/18 10:14 98 H 100 09/25/18 10:13 93 H 136/78 Pulse Ox 09/26/18 07:30 100 09/26/18 06:36 09/26/18 05:30 09/26/18 04:15 09/26/18 03:25 09/26/18 02:50 09/26/18 02:06 09/26/18 01:36 09/26/18 01:06 09/26/18 00:56 09/26/18 00:46 09/26/18 00:36 09/26/18 00:26 09/26/18 00:16 09/26/18 00:06 09/25/18 22:55 09/25/18 22:52 09/25/18 22:43 09/25/18 22:38 09/25/18 22:33 09/25/18 22:28 09/25/18 22:23 09/25/18 22:18 09/25/18 22:14 09/25/18 22:13 09/25/18 22:08 09/25/18 22:03 09/25/18 22:02 09/25/18 21:58 09/25/18 21:53 09/25/18 21:48 09/25/18 21:45 09/25/18 21:43 09/25/18 21:42 09/25/18 21:38 09/25/18 21:33 09/25/18 21:28 09/25/18 21:23 09/25/18 21:21 09/25/18 21:18 09/25/18 21:15 09/25/18 21:14 09/25/18 21:13 09/25/18 21:09 09/25/18 21:08 09/25/18 21:03 09/25/18 20:59 09/25/18 20:58 09/25/18 20:55 09/25/18 20:53 09/25/18 20:48 09/25/18 20:43 09/25/18 20:41 09/25/18 20:38 09/25/18 20:33 09/25/18 20:29 09/25/18 20:28 09/25/18 20:23 09/25/18 20:19 09/25/18 20:18 09/25/18 20:14 09/25/18 20:13 09/25/18 20:08 09/25/18 20:03 09/25/18 19:59 09/25/18 19:58 09/25/18 19:53 09/25/18 19:52 09/25/18 19:48 09/25/18 19:47 09/25/18 19:43 09/25/18 19:38 09/25/18 19:36 09/25/18 19:33 09/25/18 19:30 09/25/18 19:28 09/25/18 19:24 09/25/18 19:22 09/25/18 19:18 09/25/18 19:16 09/25/18 19:14 09/25/18 19:12 09/25/18 19:11 09/25/18 19:06 09/25/18 19:01 09/25/18 19:00 09/25/18 18:58 09/25/18 18:56 09/25/18 18:54 09/25/18 18:51 09/25/18 18:46 09/25/18 18:41 09/25/18 18:36 09/25/18 18:31 09/25/18 18:29 09/25/18 18:28 09/25/18 18:26 09/25/18 18:21 09/25/18 18:16 09/25/18 18:15 09/25/18 18:13 09/25/18 18:11 09/25/18 18:06 09/25/18 18:01 09/25/18 18:00 09/25/18 17:56 09/25/18 17:51 09/25/18 17:46 09/25/18 17:43 09/25/18 17:41 09/25/18 17:36 09/25/18 17:31 09/25/18 17:28 09/25/18 17:26 09/25/18 17:21 09/25/18 17:16 09/25/18 17:14 09/25/18 17:11 09/25/18 17:06 09/25/18 17:01 09/25/18 16:58 09/25/18 16:56 09/25/18 16:51 09/25/18 16:46 09/25/18 16:45 09/25/18 16:41 09/25/18 16:36 09/25/18 16:31 09/25/18 16:30 09/25/18 16:28 09/25/18 16:26 09/25/18 16:21 09/25/18 16:16 09/25/18 16:14 09/25/18 16:11 09/25/18 16:06 09/25/18 16:01 09/25/18 15:59 09/25/18 15:56 09/25/18 15:51 09/25/18 15:46 09/25/18 15:43 09/25/18 15:41 09/25/18 15:36 09/25/18 15:31 09/25/18 15:29 09/25/18 15:26 09/25/18 15:21 09/25/18 15:16 09/25/18 15:14 09/25/18 15:11 09/25/18 15:06 09/25/18 15:01 09/25/18 14:59 09/25/18 14:56 09/25/18 14:51 09/25/18 14:46 09/25/18 14:44 09/25/18 14:41 09/25/18 14:36 09/25/18 14:31 09/25/18 14:28 09/25/18 14:26 09/25/18 14:21 09/25/18 14:16 09/25/18 14:11 09/25/18 14:05 09/25/18 14:00 09/25/18 13:59 09/25/18 13:55 09/25/18 13:50 09/25/18 13:45 09/25/18 13:43 09/25/18 13:40 09/25/18 13:35 09/25/18 13:30 09/25/18 13:28 09/25/18 13:25 09/25/18 13:20 09/25/18 13:15 09/25/18 13:14 09/25/18 13:10 09/25/18 13:05 09/25/18 13:00 09/25/18 12:58 09/25/18 12:55 09/25/18 12:50 09/25/18 12:45 09/25/18 12:40 09/25/18 12:35 09/25/18 12:30 09/25/18 12:25 09/25/18 12:20 09/25/18 12:15 09/25/18 12:09 09/25/18 12:04 09/25/18 12:00 09/25/18 11:59 09/25/18 11:54 09/25/18 11:49 09/25/18 11:44 09/25/18 11:43 09/25/18 11:39 09/25/18 11:34 09/25/18 11:31 09/25/18 11:29 09/25/18 11:24 09/25/18 11:19 09/25/18 11:14 09/25/18 11:09 09/25/18 11:04 09/25/18 10:59 09/25/18 10:58 09/25/18 10:54 09/25/18 10:49 09/25/18 10:44 09/25/18 10:43 09/25/18 10:39 09/25/18 10:34 09/25/18 10:29 09/25/18 10:28 09/25/18 10:24 09/25/18 10:19 09/25/18 10:14 09/25/18 10:13 Pain Intensity Bilateral Lower Abdomen: Pain Intensity: 2 Notes Mental Status: alert / awake / arousable and participated in evaluation Nausea / Vomiting: adequately controlled Pain: adequately controlled Airway Patency, RR, SpO2: stable & adequate BP & HR: stable & adequate Hydration State: stable & adequate Neuraxial Anesthesia: was administered and sensory block resolved Anesthetic Complications: no major complications apparent and Pt Satisfied with anesthetic care Notes: Pt denies headache at this time.
[2018-09-26] MEDS: IBUPROFEN 600 MG TAB PO PRN ×2 (17:29→23:27)
[2018-09-26] MEDS ORDERED: MEPERIDINE HCL 50 MG/ML CARP IV PRN (17:48)
[2018-09-26] MEDS ORDERED: DC INTRASPINAL MORPHINE SCH (17:48)
[2018-09-26] MEDS ORDERED: DiphenhydrAMINE HCL 50 MG/ML VIAL IV PRN (17:48)
[2018-09-26] MEDS ORDERED: ONDANSETRON INJ 2 MG/ML 2 ML VIAL IV PRN (17:48)
[2018-09-26] MEDS ORDERED: PROMETHAZINE HCL 25 MG in SODIUM CHLORIDE 0.9% 50 ML IV PRN (17:48)
[2018-09-26] MEDS ORDERED: KETOROLAC 30 MG/ML VIAL IV PRN (17:48)
[2018-09-26] MEDS: OXYCODONE/ACETAMINOPHEN 5mg/325mg TAB PO PRN (23:28)
[2018-09-27 06:25] LABS: Hematocrit (blood only) 25.1 % (37-47); Hemoglobin 8.8 g/dL (12.0-16.0)
--- NOTE | 2018-09-27 07:06 | Obstetrical Progress Note ---
Date of Service September 27, 2018 Assessment & Plan (1) delivery delivered: doing well, routine care. enc ambulation and . hgb pending. Day #:: 2 Subjective Ambulation: ambulating normally Voiding: no voiding problems Passing Gas:: Yes Diet Tolerance:: regular diet Lochia:: Small Feeding Type:: breast feeding doing well, pain well controlled with oral meds. Physical Exam Constitutional WD/WN, vitals as above Respiratory normal respiratory effort, lungs clear to auscultation Cardiovascular Rate/Rhythm: regular rate and regular rhythm Gastrointestinal (Abdomen) ff at u, non tender, incision c/d/i with steris Musculoskeletal nt calves Results & Data Vital Signs (Past 12 Hours) Vital Signs Temp Pulse Resp BP Pulse Ox 09/26/18 23:30 36.5 C 86 18 121/79 09/26/18 19:30 36.6 C 87 18 118/79 97
[2018-09-27] MEDS: IBUPROFEN 600 MG TAB PO PRN ×3 (07:31→17:52)
[2018-09-27] MEDS: OXYCODONE/ACETAMINOPHEN 5mg/325mg TAB PO PRN ×3 (07:32→17:53)
[2018-09-27] MEDS: PRENATAL VITAMIN 1 TAB PO SCH (09:05)
[2018-09-27] MEDS: DOCUSATE SODIUM 100 MG CAP PO SCH ×2 (09:05→20:15)
[2018-09-27] MEDS: FERROUS SULFATE 325 MG TAB PO SCH (09:05)
[2018-09-27] MEDS: SIMETHICONE 80 MG CHEW PO SCH ×2 (09:05→20:02)
[2018-09-27] MEDS ORDERED: BISACODYL 5 MG TABEC PO SCH (20:00)
[2018-09-28] MEDS ORDERED: BISACODYL 10 MG SUPP PR PRN (00:09)
--- NOTE | 2018-09-29 08:27 | Discharge Summary ---
ADMISSION DIAGNOSES: 1. Intrauterine at 38 and 3/7 weeks. 2. Premature rupture of membranes prior to the onset of labor. DISCHARGE DIAGNOSIS: Failure to descend. PROCEDURES: Primary low transverse section. HISTORY OF PRESENT ILLNESS: The patient is a 28-year-old G1, P0 at 38 and 3/7 weeks, who presents with PROM, occasional contractions, no vaginal bleeding, good movement, complicated by GBS positive status. For the rest of the patient's detailed history and physical, please see her history and physical. On admission, her cervix was fingertip dilated, 20% effaced, -3 station with clear amniotic fluid. HOSPITAL COURSE: The patient was admitted, eventually oxytocin was started. She received penicillin for GBS prophylaxis. She eventually at 3 cm dilated became uncomfortable and underwent an epidural anesthetic. I took over for the patient on the morning of 09/25/2018. At that point in time, she was 6-7 cm dilated, 100% effaced, anterior lip very swollen. We continued with Pitocin augmentation. She made very very slow progress with Pitocin augmentation. We were never able to get her adequately sharad; however, she made progress. Pitocin remained at about 39 milliunits throughout. When the patient was complete-complete +2 station, she began pushing. The patient pushed for 3 hours and was unable to get the vertex past the +2 station. There was significant caput that one could see at the introitus, but the true head was not below +3 station. We did briefly discuss the possibility of vacuum-assisted vaginal delivery but in the end declined this and proceeded with delivery. The patient underwent a primary low transverse section without difficulty. Estimated blood loss 600 mL. Baby was in SWATI presentation. There was a loose nuchal/body cord. Clear fluid was noted. Normal uterus and tubes and ovaries were noted bilaterally. Apgars were 9 and 9, weight 7 pounds 8.4 ounces. The patient's postoperative course was uncomplicated. She tolerated a regular diet, ambulated without difficulty, voided without difficulty after the removal of her Garcia catheter. Her pain was well controlled on oral pain medications and she remained afebrile throughout. She was discharged home on day #2. Her discharge H and H was 8.8 and 25.1. She was discharged home with routine /postoperative pain medications and will return in 6 weeks for postoperative check.
== END 2018-09-27 20:30 | disposition home or self-care (01) ==
LOC: OPB 22:06 → 4S1 22:07 → 4S2 09-26 02:58

== ENCOUNTER 2020-11-06 05:39 | Inpatient (IN) ==
--- NOTE | 2020-11-01 09:07 | Anesthesiology Consultation ---
Date of Service November 01, 2020 Assessment & Plan (1) Encounter for pre-operative examination: - COVID screening: Per assessment on 11/01: Travel screen negative, no known COVID-19 positive contacts or current COVID-19 related symptoms. Surgeon arranged preop COVID testing (done 10/31; [place])- negative. - (09/25/18): Labor epidural at L3-L4 (x1 attempmt) > dosed at [facility] Chart Review Chart Review: entry level account manager initiated History Surgery Operation Date: 11/06/20 07:30 Proposed Procedures p Section (Delivery of Baby Through Abdominal Incision) - Carol Schafer, DO Height/Weight Height: 5 ft 6 in Weight: 76.657 kg Allergies Allergy/AdvReac Type Severity Reaction Status Date / Time No Known Drug Allergies Allergy Verified 11/01/20 08:26 Medications Home Medications Medication Instructions Recorded Confirmed Last Taken PNV no.151-iron 27 mg-folic 800 1 cap PO DAILY cap 12/06/18 11/01/20 08/27/20 17:00 mcg-omega3 260 qc-kiu-dvz-fish capsule ( Multi-DHA (with vitamin K)) Past Medical History Medical History Anemia due to blood loss r/t previous History of COVID-19 Dx 02/2020 Migraine with aura and without status migrainosus, not intractable Multiple benign nevi Vision loss of right eye Per pt, felt to be migraine related> no further issues Past Family History Family History Other Breast cancer Colorectal cancer Hypertension Denies family history of Ovarian cancer Prostate cancer Myocardial infarction Past Surgical History Surgical History H/O wisdom tooth extraction History of conization of cervix History of mandibular surgery 1998 > related to fall Hx of breast biopsy benign S/P section September 2018 - live male Social History Smoking Status: Never smoker Do You Dip or Chew Tobacco: No Hx Alcohol Use: No Hx Substance Use: No substance use type: does not use Lab Results Anesthesia Preop Results Results Anesthesia Widget: Hgb 13.0 g/dL (12.0-16.0) 08/16/20 Hct 36.6 % (37-47) L 08/16/20 Urine Color Dark Yellow 08/16/20 Urine Appearance Clear (Clear) 08/16/20 Urine pH 6.0 (4.5-7.5) 08/16/20 Urine Specific Drury 1.028 (1.000-1.030) 08/16/20 Urine Protein Trace (Negative) H 08/16/20 Urine Glucose (UA) Negative (Negative) 08/16/20 Urine Ketones Trace (Negative) H 08/16/20 Urine Blood Negative (Negative) 08/16/20 Urine Nitrite Negative (Negative) 08/16/20 Urine Bilirubin Negative (Negative) 08/16/20 Urine Urobilinogen Negative (Negative) 08/16/20 Urine Leukocyte Esterase Negative (Negative) 08/16/20 Urine WBC (Auto) 1-5 /hpf (0-5) 08/16/20 Urine RBC (Auto) 0-4 /hpf (0-4) 08/16/20 Urine Hyaline Casts (Auto) 0 /lpf (0-5) 08/16/20 Urine Epithelial Cells (Auto) 10-20 /lpf (0-5) H 08/16/20 Urine Bacteria (Auto) Negative (Negative) 08/16/20 Blood Type A Positive 03/29/20 Antibody Screen NEGATIVE 03/29/20
--- NOTE | 2020-11-03 11:06 | History & Physical Report ---
Date of Service November 03, 2020 Assessment & Plan (1) Previous delivery affecting , antepartum: Plan: Plan for repeat section. Consent reviewed line by line in office. Patient agreeable. Questions answered. History of Present Illness Chief Complaint: repeat CS Primary Care Provider: Alondra Escoto MD 30yo with EDC 11/07/20, scheduled for repeat section. complicated by: COVID + ON 03/20/20 Prior Section affecting (failure to descend) C/S SCHEDULED FOR 11/[address] FELIZ NEEDS COVID TEST ON 10/31-ORDERED pyelectasis - resolved at 28wks GBS+ - needs treatment if in labor Allergies Allergy/AdvReac Type Severity Reaction Status Date / Time No Known Drug Allergies Allergy Verified 11/03/20 10:30 Home Medications Medication Instructions Recorded Confirmed Type PNV no.151-iron 27 mg-folic 800 1 cap PO DAILY cap 12/06/18 11/03/20 History mcg-omega3 260 cw-vry-jte-fish capsule ( Multi-DHA (with vitamin K)) Patient History Medical History Anemia due to blood loss r/t previous History of COVID-19 Dx 02/2020 Migraine with aura and without status migrainosus, not intractable Multiple benign nevi Vision loss of right eye Per pt, felt to be migraine related> no further issues Surgical History H/O wisdom tooth extraction History of conization of cervix History of mandibular surgery 1998 > related to fall Hx of breast biopsy benign S/P section September 2018 - live male Family History Other Breast cancer Colorectal cancer Hypertension Denies family history of Ovarian cancer Prostate cancer Myocardial infarction Social History (Updated 03/22/20 @ 15:16 by Lydia Richards) Smoking Status: Never smoker Second Hand Exposure: No; Hx Alcohol Use: No Hx Substance Use: No Preferred Language: Turkish Communication Ability: Effective Plastic Straightening Roll Operator Required: No Beliefs That Will Affect Care: None marital status: marital status details: Bertin(33) [phone] Current Living Situation: Spouse and Family Current Living Situation Comment: lives with spouse and son, 3dogs, 2 cats, spouse to change litter. 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 No s/s chorio or abruption. Skin: no rashes, warm and dry Psychiatric: A+Ox3, euthymic affect Coding Level of Care Code None Diagnoses Previous delivery affecting , antepartum O34.219
[2020-11-06] MEDS ORDERED: ceFAZolin 2,000 MG in SYRINGE 0 ML IV SCH (06:00)
[2020-11-06] MEDS ORDERED: CITRIC ACID/SODIUM CITRATE 15 ML UDC PO SCH (06:00)
[2020-11-06] MEDS ORDERED: LACTATED RINGER'S 1,000 ML IV SCH ×3 (06:00→09:15)
[2020-11-06 06:34] LABS: Basophils # (auto) 0.02 K/uL (0-0.2); Basophils % (auto) 0.2 %; Hematocrit (blood only) 35.3 % (37-47); Hemoglobin 11.9 g/dL (12.0-16.0); Immature Granulocytes # (auto) 0.06 K/uL (0.00-0.02); Immature Granulocytes % (auto) 0.6 %; Lymphocytes # (auto) 2.42 K/uL (1.2-3.4); Lymphocytes % (auto) 24.4 %; Mean Corpuscular Hemoglobin 30.2 pg (25-34); Mean Corpuscular Hgb Conc 33.7 g/dL (32-36); Mean Corpuscular Volume 89.6 fL (80-100); Mean Platelet Volume 10.1 fL (7.4-10.4); Monocytes # (auto) 0.87 K/uL (0.11-0.59); Monocytes % (auto) 8.8 %; Neutrophils # (auto) 6.43 K/uL (1.4-6.5); Platelet Count 219 K/uL (130-400); RDW Coefficient of Variation 12.8 % (11.5-14.5); RDW Standard Deviation 41.5 fL (36.4-46.3); Red Blood Count 3.94 M/uL (4.2-5.4)
[2020-11-06] MEDS ORDERED: MoRPHine SULFATE PF 1 MG/ML 10 ML AMP/VIAL ONE (07:08)
--- NOTE | 2020-11-06 07:28 | History & Physical Bridge Note ---
Date of Service November 06, 2020 History & Physical Bridge Note I have examined the patient, reviewed the History & Physical and in the interval since the performance of the History & Physical I have noted the following changes of clinical significance: no changes noted
[2020-11-06] MEDS ORDERED: MoRPHine SULFATE PF 1 MG/ML 10 ML AMP/VIAL INT SPINAL ONE (07:34)
[2020-11-06] MEDS ORDERED: MEPERIDINE HCL 25 MG/ML CARP/VIAL IV PRN (07:34)
[2020-11-06] MEDS ORDERED: KETOROLAC 30 MG/ML VIAL IV PRN (07:34)
[2020-11-06] MEDS ORDERED: ONDANSETRON INJ 2 MG/ML 2 ML VIAL IV PRN (07:34)
[2020-11-06] MEDS ORDERED: NALOXONE HCL 0.4 MG/1 ML VIAL/CARP IV PRN (07:34)
[2020-11-06] MEDS ORDERED: NALOXONE HCL 1 MG in SODIUM CHLORIDE 0.9% 1000ML 1,000 ML IV PRN (07:34)
[2020-11-06] MEDS ORDERED: MoRPHine SULFATE 2 MG/ML CARP IV PRN (07:34)
[2020-11-06] MEDS ORDERED: LACTATED RINGER'S 500 ML IV PRN (07:34)
[2020-11-06] MEDS ORDERED: ePHEDrine sulfate 50 MG/ML AMP IV PRN (07:34)
[2020-11-06] MEDS ORDERED: diphenhydrAMINE 50 MG/ML VIAL IV PRN (07:34)
[2020-11-06] MEDS ORDERED: NALOXONE HCL 0.08 MG in SYRINGE 1.8 ML IV PRN (07:34)
[2020-11-06] MEDS ORDERED: HYDROmorphone INJ 0.5 MG/0.5 ML SYR IV PRN (07:34)
[2020-11-06] MEDS ORDERED: NALBUPHINE HCL INJ 10 MG/ML AMP IV PRN (07:34)
[2020-11-06] MEDS ORDERED: SODIUM CHLORIDE 0.9% 1000ML 1,000 ML IV SCH (07:45)
[2020-11-06] MEDS ORDERED: DC INTRASPINAL MORPHINE SCH (07:45)
[2020-11-06] MEDS ORDERED: NO NARCOTICS OR SEDATIVES SCH (07:45)
[2020-11-06 08:38] LABS: Base Excess Cord Arterial Bld -3.1 mEq/L (-9-1.8); CO2 Cord Arterial Blood 58 mmHg (39.1-73.5); HCO3 Cord Arterial Blood 25 mmol/L (19.7-28.5); PO2 Cord Arterial Blood 17 mmHg (4.1-31.7); pH Cord Arterial Blood 7.26 (7.1-7.38)
[2020-11-06 08:40] LABS: Base Excess Cord Venous Blood -1.3 mEq/L (-7.7-1.9); Cord Venous Blood HCO3 24 mmol/L (18.4-26.8); Cord Venous Blood PCO2 41 mmHg (30.4-57.2); Cord Venous Blood PO2 23 mmHg (14.1-43.3); Cord Venous Blood pH 7.38 (7.20-7.44)
[2020-11-06 08:42] LABS: O2 Saturation Cord Venous Bld < 60.0 % (<68); Oxygen Sat Cord Arterial Blood < 60.0 % (<60)
[2020-11-06] MEDS ORDERED: OXYTOCIN 10 UNITS/ML VIAL ONE (08:46)
[2020-11-06] MEDS ORDERED: PHENYLEPHRINE 100MCG/ML 5ML SYR ONE (08:47)
[2020-11-06] MEDS ORDERED: ePHEDrine sulfate 50 MG/ML AMP ONE (08:47)
[2020-11-06] MEDS ORDERED: SENNA 8.6 MG TAB PO PRN (09:03)
[2020-11-06] MEDS ORDERED: BENZOCAINE 20% AER SPR 82.5 GM CAN EXT PRN (09:03)
[2020-11-06] MEDS ORDERED: DIPHTHERIA/TETANUS/PERTUSSIS 0.5 ML SYR/VIAL IM ONE (09:03)
[2020-11-06] MEDS ORDERED: MAGNESIUM HYDROXIDE SUSP 30 ML UDC PO PRN (09:03)
[2020-11-06] MEDS ORDERED: HYDROCORTISONE ACETATE 25 MG SUPP PR PRN (09:03)
[2020-11-06] MEDS ORDERED: SUPERCREAM 0.870% 15 GM JAR EXT PRN (09:03)
[2020-11-06] MEDS ORDERED: ONDANSETRON INJ 2 MG/ML 2 ML VIAL ONE (09:04)
--- NOTE | 2020-11-06 09:06 | Operative Report ---
PG Post Operative Report Pre & Post Diagnosis Operation Date: 11/06/20 07:30 Pre-Op Diagnosis: History of Section Post-Op Diagnosis: History of Section I identified the patient and participated in the time-out.: Yes Procedure Operation Date: 11/06/20 07:30 Actual Procedures p Repeat low transverse Section (Delivery of Baby Through Abdominal Incision); delivery of live male at 0810 - Carol Schafer DO Surgeon Carol Schafer DO Sales Agent Financial Report Service Teagan Tyson MD Estimated Blood Loss 600 Findings See Below Viable male , Apgars 8/9, weight 6#12.7. Right collapsed ovarian cyst - brown material, appears to be an old hemorrhagic cyst vs endometrioma. There is also similar, but smaller, appearance on the left ovary. There is adhesion between small bowel and posterior aspect of right adnexa. Specimens Placenta, cord blood, cord gas. Hemorrhagic ovarian cyst. Drains olivier, clear yellow Anesthesia Type Spinal Complications none Indications 30yo @ 39 6/7, repeat section. Description of Procedure The patient was seen in her labor and delivery room, risks benefits and alter natives to surgery were reviewed. Informed consent was previously obtained in office. Questions were answered. She was taken to the operating room, spinal anesthesia was administered. She was then prepared and draped in the usual sterile fashion in the supine position with a leftward tilt. Timeout was confirmed. A Pfannenstiel skin incision was made with a scalpel, and carried through to the underlying layer of fascia. Fascia was nicked at midline, and this incision was extended bilaterally. The superior aspect of the fascial incision was grasped with Gena clamps x2, elevated off the underlying rectus abdominis muscles, and dissected sharply and bluntly. In similar fashion, the inferior aspect of the fascial incision was dissected. The rectus abdominis muscles were , and the peritoneum was entered bluntly digitally. This was extended bilaterally. The bladder flap was taken down carefully using Metzenbaum scissors. Using a new scalpel, a low transverse uterine incision was created. Clear amniotic fluid noted. The was delivered from a cephalic presentation. Nuchal x 1, easily reduced. The head delivered, followed by shoulders and body. Spontaneous cry on the field. The cord was doubly clamped and cut, and the was handed off to the waiting community service aide. A segment was retained for cord gases. Cord blood was obtained. The placenta was delivered spontaneously intact. The uterus was exteriorized, and cleared of all clots and debris. The hysterotomy incision was reapproximated using 0 Vicryl in a running locked stitch. A second layer of the same suture was used to imbricate the incision. Posterior uterus was evaluated and normal. There were bilateral appearance of old collapsed hemorrhagic ovarian cysts vs endometriomas. A small piece was sent to pathology for further eval. Figure of eight sutures of 2-0 Vicryl used at hysterotomy incision to obtain excellent hemostasis. The uterus was returned to the abdomen, and gutters were cleared of clots and debris. Excellent hemostasis was observed. The rectus abdominus muscles were reapproximated at midline with 2-0 chromic running stitch. The fascial incision was reapproximated using 0 Vicryl in a running stitch. The subcutaneous tissue was irrigated, and reapproximated using 2-0 plain gut in a running stitch. The skin was reapproximated using 4-0 Vicryl in a running subcu ticular stitch. Steri-Strips and a bandage were applied. The patient tolerated the procedure well, and will be taken to the recovery area in stable and good condition. I attest to the content of the Intraoperative Record and any orders documented therein. Any exceptions are noted below. OB Procedure charges OB Charges 70129 C/S
[2020-11-06] MEDS: OXYTOCIN 20 UNITS in LACTATED RINGER'S 1,000 ML IV SCH ×2 (09:33→17:48)
--- NOTE | 2020-11-06 14:59 | Anesthesiology Progress Note ---
Date of Service November 06, 2020 Anesthesia Post Procedure Vital Signs Vital Signs: Temp Pulse Pulse Resp BP BP Pulse Ox 11/06/20 13:40 80 18 115/72 100 11/06/20 12:40 74 18 122/75 100 11/06/20 11:40 36.7 C 78 18 119/80 99 11/06/20 11:26 36.5 C 20 11/06/20 11:15 83 99 11/06/20 11:11 88 91 11/06/20 11:10 78 121/70 99 11/06/20 11:05 72 98 11/06/20 11:00 80 119/60 98 11/06/20 10:55 82 95 11/06/20 10:50 76 131/60 98 11/06/20 10:45 85 99 11/06/20 10:40 75 20 127/60 99 11/06/20 10:35 84 99 11/06/20 10:30 79 151/70 H 98 11/06/20 10:25 78 97 11/06/20 10:20 86 125/65 99 11/06/20 10:15 81 99 11/06/20 10:14 16 11/06/20 10:10 86 20 132/63 98 11/06/20 10:05 79 98 11/06/20 10:00 83 20 141/63 H 98 11/06/20 09:55 74 98 11/06/20 09:50 79 20 130/61 100 11/06/20 09:49 77 90 11/06/20 09:45 77 98 11/06/20 09:44 20 11/06/20 09:43 78 91 11/06/20 09:40 76 131/60 96 11/06/20 09:35 66 99 11/06/20 09:30 65 20 124/67 100 11/06/20 09:25 70 99 11/06/20 09:20 71 20 127/61 99 11/06/20 09:15 66 100 11/06/20 09:10 36.4 C L 78 20 131/61 100 11/06/20 06:58 77 139/85 11/06/20 06:04 37.1 C 78 20 122/75 11/06/20 06:03 78 122/75 Pain Intensity Bilateral Lower Abdomen: Pain Intensity: 4 Transfer of Care Handoff Completed per policy Notes Mental Status: alert / awake / arousable and participated in evaluation Patient Amnestic to Procedure: Yes Nausea / Vomiting: adequately controlled Pain: adequately controlled Airway Patency, RR, SpO2: stable & adequate BP & HR: stable & adequate Hydration State: stable & adequate Anesthetic Complications: no major complications apparent
[2020-11-06] MEDS: SIMETHICONE 80 MG CHEW PO SCH ×3 (16:09→20:41)
[2020-11-06] MEDS: DOCUSATE SODIUM 100 MG CAP PO SCH (20:41)
[2020-11-07] MEDS ORDERED: ONDANSETRON INJ 2 MG/ML 2 ML VIAL IV PRN (01:34)
[2020-11-07] MEDS ORDERED: PROMETHAZINE HCL 25 MG in SODIUM CHLORIDE 0.9% 50 ML IV PRN (01:34)
[2020-11-07] MEDS ORDERED: diphenhydrAMINE Capsule 25 MG CAP PO PRN (01:34)
[2020-11-07] MEDS ORDERED: diphenhydrAMINE 50 MG/ML VIAL IV PRN (01:34)
[2020-11-07] MEDS ORDERED: BENZOCAINE 20% AER SPR 82.5 GM CAN EXT PRN (06:01)
[2020-11-07] MEDS ORDERED: SUPERCREAM 0.870% 15 GM JAR EXT PRN (06:01)
[2020-11-07] MEDS ORDERED: HYDROCORTISONE ACETATE 25 MG SUPP PR PRN (06:01)
[2020-11-07] MEDS: oxyCODONE/ACETAMINOPHEN 5mg/325mg TAB PO PRN ×3 (06:09→16:26)
[2020-11-07] MEDS: IBUPROFEN 600 MG TAB PO PRN ×3 (06:10→16:26)
--- NOTE | 2020-11-07 06:35 | Obstetrical Progress Note ---
Date of Service <Miri Paniagua MD - Last Filed: 11/07/20 07:38> November 07, 2020 Assessment & Plan <Miri Paniagua MD - Last Filed: 11/07/20 07:38> (1) Encounter for care and examination after delivery: Stable, afebrile, tolerating diet -Rh+, RI, GBS+ - -pain control with analgesia as needed -encourage ambulation -d/c discussed with patient, wants to go home tomorrow <Carol Schafer DO - Last Filed: 11/07/20 07:43> (1) Encounter for care and examination after delivery: Subjective <Miri Paniagua MD - Last Filed: 11/07/20 07:38> 30 y/o female who is POD #1 following repeat at 39.6 WGA. She reports feeling well overall this morning. + abdominal cramping & 6/10 pain well managed on analgesics. Voiding +. Tolerating meals overnight and is ambulating well. + passing gas, + bowel movement. Has some persistent lochia with some improvement this morning. Currently . Review of Systems Denies fever, chills, sweats Denies shortness of breath, difficulty breathing, chest pain, palpitations, chest pressure. Denies breast pain. Denies dysuria. Denies headache or changes in vision. Review of Systems All systems reviewed & are unremarkable except as noted in HPI & below Physical Exam <Miri Paniagua MD - Last Filed: 11/07/20 07:38> General: Alert, oriented. No acute distress. Cardiac: Regular rate and rhythm, no murmurs/rubs/gallops. Respiratory: Clear to auscultation bilaterally a/p, no wheezes/rales/rhonchi. No increased work of breathing. Symmetrical chest rise. No respiratory distress. Abdomen: Soft, nontender, nondistended. Bowel sounds present. Uterus: Uterine fundus firm, palpable 3 cm below umbilicus. Surgical scar clean and healing well. Lower Extremities: No lower extremity edema or swelling. No deep calf pain. Mine's negative bilaterally. Constitutional WD/WN, vitals as above Results & Data ([facility]) <Miri Paniagua MD - Last Filed: 11/07/20 07:38> Vital Signs (Past 12 Hours) Vital Signs Temp Pulse Resp BP Pulse Ox 11/07/20 04:00 36.7 C 83 18 122/80 98 11/06/20 23:30 36.8 C 96 H 16 109/73 99 11/06/20 20:30 18 99 11/06/20 19:35 36.8 C 83 18 127/79 100 <Carol Schafer DO - Last Filed: 11/07/20 07:43> Co-Signing Physician Notes Resident Physician Supervision Note: I was present with Dr. Paniagua during the history and exam. I discussed the case with the resident and agree with the findings and plan as documented in the note. Any exceptions or clarifications are listed here: POD#1 doing well. Ambulate, hydrate, continue advancing diet. Anticipate DC home tomorrow. Documented By: Carol Schafer DO Resident Activity Tracking <Miri Paniagua MD - Last Filed: 11/07/20 07:38> Resident Involvement: Resident Care Provided Care Provided: OB Delivery
[2020-11-07 06:57] LABS: Basophils # (auto) 0.01 K/uL (0-0.2); Basophils % (auto) 0.1 %; Eosinophils # (auto) 0.06 K/uL (0-0.5); Eosinophils % (auto) 0.4 %; Hematocrit (blood only) 32.5 % (37-47); Immature Granulocytes # (auto) 0.06 K/uL (0.00-0.02); Immature Granulocytes % (auto) 0.4 %; Lymphocytes # (auto) 1.18 K/uL (1.2-3.4); Lymphocytes % (auto) 8.4 %; Mean Corpuscular Hemoglobin 29.7 pg (25-34); Mean Corpuscular Hgb Conc 33.8 g/dL (32-36); Mean Corpuscular Volume 87.8 fL (80-100); Mean Platelet Volume 9.9 fL (7.4-10.4); Monocytes # (auto) 0.74 K/uL (0.11-0.59); Monocytes % (auto) 5.2 %; Neutrophils # (auto) 12.06 K/uL (1.4-6.5); Neutrophils % (auto) 85.5 %; Platelet Count 193 K/uL (130-400); RDW Coefficient of Variation 13.1 % (11.5-14.5); RDW Standard Deviation 41.6 fL (36.4-46.3); White Blood Count 14.11 K/uL (4.8-10.8)
[2020-11-07] MEDS: SIMETHICONE 80 MG CHEW PO SCH ×4 (07:41→19:41)
[2020-11-07] MEDS: DOCUSATE SODIUM 100 MG CAP PO SCH ×2 (07:41→19:41)
[2020-11-07] MEDS: PRENATAL VITAMIN 1 TAB PO SCH (07:41)
[2020-11-07] MEDS: FERROUS SULFATE 325 MG TAB PO SCH (07:41)
[2020-11-07] MEDS ORDERED: SIMETHICONE 80 MG CHEW PO SCH (08:00)
[2020-11-07] MEDS ORDERED: bisacodyL 5 MG TABEC PO SCH (20:00)
[2020-11-08] MEDS: oxyCODONE/ACETAMINOPHEN 5mg/325mg TAB PO PRN (02:04)
[2020-11-08] MEDS: IBUPROFEN 600 MG TAB PO PRN ×2 (02:04→11:24)
--- NOTE | 2020-11-08 06:16 | Obstetrical Progress Note ---
Date of Service <Miri Paniagua MD - Last Filed: 11/08/20 07:02> November 08, 2020 Assessment & Plan <Miri Paniagua MD - Last Filed: 11/08/20 07:02> (1) Encounter for care and examination after delivery: Stable, afebrile, tolerating diet -Rh+, RI, GBS+ - -pain control with analgesia as needed -encourage ambulation -d/c discussed with patient, ready to go today after lunch <Jie Rose MD - Last Filed: 11/08/20 07:05> (1) Encounter for care and examination after delivery: Subjective <Miri Paniagua MD - Last Filed: 11/08/20 07:02> Post 30 y/o female who is POD #2 following . She reports feeling well overall this morning. 2/10 pain well managed on analgesics. Voiding +. Tolerating meals overnight and able to ambulate some. + passing gas and + bowel movement. Has scant lochia this morning. Currently . Review of Systems Denies fever, chills, sweats Denies shortness of breath, difficulty breathing, chest pain, palpitations, chest pressure. Denies breast pain. Denies dysuria. Denies headache or changes in vision. Physical Exam <Miri Paniagua MD - Last Filed: 11/08/20 07:02> General: Alert, oriented. No acute distress. Cardiac: Regular rate and rhythm, no murmurs/rubs/gallops. Respiratory: Clear to auscultation bilaterally a/p, no wheezes/rales/rhonchi. No increased work of breathing. Symmetrical chest rise. No respiratory distress. Abdomen: Soft, nontender, nondistended. Bowel sounds present. Uterus: Uterine fundus firm, palpable 2 cm below umbilicus. Surgical scar clean and healing well. Lower Extremities: No lower extremity edema or swelling. No deep calf pain. Mine's negative bilaterally. Constitutional WD/WN, vitals as above Results & Data ([facility]) <Miri Paniagua MD - Last Filed: 11/08/20 07:02> Vital Signs (Past 12 Hours) Vital Signs Temp Pulse Resp BP 11/07/20 23:25 36.9 C 81 18 100/70 <Jie Rose MD - Last Filed: 11/08/20 07:05> Co-Signing Physician Notes Resident Physician Supervision Note: I was present with Dr. Paniagua during the history and exam. I discussed the case with the resident and agree with the findings and plan as documented in the note. Any exceptions or clarifications are listed here: POD2 s/p repeat CS, meeting all milestones. VSS, exam benign and wnl. Stable for d/c home today Documented By: Jie Rose MD Resident Activity Tracking <Miri Paniagua MD - Last Filed: 11/08/20 07:02> Resident Involvement: Resident Care Provided Care Provided: OB Delivery
[2020-11-08 06:40] LABS: Hematocrit (blood only) 29.3 % (37-47); Hemoglobin 9.8 g/dL (12.0-16.0)
[2020-11-08] MEDS: PRENATAL VITAMIN 1 TAB PO SCH (09:02)
[2020-11-08] MEDS: DOCUSATE SODIUM 100 MG CAP PO SCH (09:02)
[2020-11-08] MEDS: FERROUS SULFATE 325 MG TAB PO SCH (09:02)
[2020-11-08] MEDS: SIMETHICONE 80 MG CHEW PO SCH (09:02)
[2020-11-08] MEDS ORDERED: bisacodyL 10 MG SUPP PR PRN (09:03)
--- NOTE | 2020-11-18 09:02 | Discharge Summary ---
Date of Service November 18, 2020 Admission HPI Per Admitting Provider 30yo with EDC 11/07/20, scheduled for repeat section. complicated by: COVID + ON 03/20/20 Prior Section affecting (failure to descend) C/S SCHEDULED FOR 11/[address] SCHAFER NEEDS COVID TEST ON 10/31-ORDERED pyelectasis - resolved at 28wks GBS+ - needs treatment if in labor Discharge Data Procedures Performed Operation Date: 11/06/20 07:30 Actual Procedures p Repeat Low Transverse Section (Delivery of Baby Through Abdominal Incision); delivery of live male at 0810 - Carol Schafer DO Hospital Course (1) Encounter for supervision of normal in multigravida, antepartum: Admitted after section, planned. Routine recovery. Followup in office 6w. Coding Level of Care Code None Diagnoses Encounter for supervision of normal in multigravida, antepartum Z34.80
== END 2020-11-08 13:10 | disposition home or self-care (01) | DRG 788 ==
LOC: 4S1 05:39 → EDSTATUS 07:30 → 4S2 11:31

== ENCOUNTER 2024-02-16 06:21 | Inpatient (IN) ==
--- NOTE | 2024-02-09 11:10 | Anesthesiology Consultation ---
Date of Service February 09, 2024 Assessment & Plan (1) Encounter for pre-operative examination: Chart Review Chart Review: data entry coordinator initiated -Infectious Disease screening: Per PAT nursing assessment on 02/09/24. No known infectious disease contacts in past 10 days or current infectious disease symptoms. No recent travel outside the country. Seen by MFM 11/25/23= two vessel cord (single umbical artery). History of prior c- sections. Normal genetic (NIPT) screen. Discussed plan of care for growth ultrasound and reassessment of anatomy in 3-4 weeks. (Per OB records= "2 v essel cord. ECHO-- saw mfm, incomplete but pt declines further pursuit. Serial Growth US starting @28wks. NSTs @36wks") History Surgery Operation Date: 02/16/24 07:30 Proposed Procedures p Section (Delivery of Baby Through Abdominal Incision), - Jacqueline Alcaraz MD, FACOG s With Bilateral Tubal Ligation - Jacqueline Alcaraz MD, FACOG Height/Weight Height: 5 ft 6 in Weight: 83.007 kg Allergies Allergy/AdvReac Type Severity Reaction Status Date / Time No Known Drug Allergies Allergy Verified 02/09/24 10:19 Medications Home Medications Medication Instructions Recorded Confirmed Last Taken 21-iron fu-folic acid 1 dose PO QAM 10/29/23 02/09/24 Unknown [ Complete] Past Medical History Medical History (Updated 02/09/24 @ 11:10 by Ginette Alvarado PA-C) History of anemia with childbirth History of COVID-19 Dx 02/2020 Low back pain Migraine with aura and without status migrainosus, not intractable Multiple benign nevi Right lumbar radiculopathy Thyroid nodule benign Two vessel umbilical cord, antepartum with current - OB aware; saw MFM in 11/2023 Past Family History Family History Son Brain tumor Other Breast cancer Colonic polyp Colorectal cancer Hypertension Denies family history of Ovarian cancer Prostate cancer Myocardial infarction Past Surgical History Surgical History H/O wisdom tooth extraction History of conization of cervix History of mandibular surgery 1998 > related to fall Hx of breast biopsy benign S/P section x2 Social History Smoking Status: Never smoker Do You Dip or Chew Tobacco: No Hx Alcohol Use: No Hx Substance Use: No substance use type: does not use Testing Laboratory Results 11/27/23 (> 60 days)= WBC: 11.7 H/H: 12.5/37.8 PLATELETS: 261 Echocardiogram Date: 08/14/22 EF: 60-65% LV Function: normal RWMA: + none Other Findings: + diastolic dysfunction (Class I ); no LVH Valvular Disease: + no significant valvular disease
--- NOTE | 2024-02-13 10:11 | History & Physical Report ---
Date of Service February 13, 2024 Assessment & Plan (1) Previous delivery affecting , antepartum: Plan: IUP at term for repeat LTCS and bilateral salpingectomy procedure and risks reviewed and all questions answered to her satisfaction. History of Present Illness Primary Care Provider: Alondra Escoto MD Patient is a 33 yo EDC 02/17 who presents with 39 4/7 weeks for repeat LTCS and bilateral salpingectomy for unwanted fertility and multiparity. complicated by prior C/S x2 and AMA status. Ante-george testing has been reassuring. Allergies Allergy/AdvReac Type Severity Reaction Status Date / Time No Known Drug Allergies Allergy Verified 02/13/24 08:24 Home Medications Medication Instructions Recorded Confirmed Type 21-iron fu-folic acid 1 dose PO QAM 10/29/23 02/13/24 History [ Complete] Patient History Medical History (Updated 02/09/24 @ 11:10 by Ginette Alvarado PA-C) Thyroid nodule benign History of anemia with childbirth Two vessel umbilical cord, antepartum with current - OB aware; saw MFM in 11/2023 Right lumbar radiculopathy Low back pain Migraine with aura and without status migrainosus, not intractable Multiple benign nevi History of COVID-19 Dx 02/2020 Surgical History History of conization of cervix Hx of breast biopsy benign History of mandibular surgery 1998 > related to fall S/P section x2 H/O wisdom tooth extraction Family History Son Brain tumor Other Breast cancer Colonic polyp Colorectal cancer Hypertension Denies family history of Ovarian cancer Prostate cancer Myocardial infarction Social History (Updated 10/29/23 @ 14:30 by Simona Mcdonnell) Smoking Status: Never smoker Second Hand Exposure: No; Do You Dip or Chew Tobacco: No; Hx Alcohol Use: No Hx Substance Use: No Preferred Language: Upper Sorbian Communication Ability: Effective Chemical Machine Tender Required: No Beliefs That Will Affect Care: None marital status: marital status details: Bertin(36) [phone] Current Living Situation: Spouse Current Living Situation Comment: lives with spouse, 2 children, brother, dogs, cats-spouse changing litter current occupational status: employed 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 Feels Safe at Home: Yes Dental Care, Regularly: No Physical Activity Frequency: Does not Exercise Seatbelt Use: always Assistive Devices: None Review of Systems All systems reviewed & are unremarkable except as noted in HPI & below Physical Exam Constitutional: WD/WN, vitals as above Psychiatric: A+Ox3, euthymic affect Genitourinary: OB Exam Abdomen: + fundal height (term) and + vertex OB Exam Monitor Tracing: + external FHT monitor used, + external uterine monitor used and + category I Coding Level of Care Code 98559 INT INP/OBS CARE MIN Diagnoses Previous delivery affecting , antepartum O34.219
[2024-02-16 06:30] LABS: Basophils # (auto) 0.04 K/uL (0.00-0.20); Basophils % (auto) 0.4 %; Eosinophils # (auto) 0.11 K/uL (0.00-0.50); Hematocrit (blood only) 36.7 % (37.0-47.0); Hemoglobin 12.9 g/dl (12.0-16.0); Immature Granulocytes # (auto) 0.08 K/uL (0.01-0.20); Immature Granulocytes % (auto) 0.8 %; Lymphocytes # (auto) 2.54 K/uL (1.20-3.40); Lymphocytes % (auto) 23.8 %; Mean Corpuscular Hemoglobin 30.4 pg (25.0-34.0); Mean Corpuscular Hgb Conc 35.1 g/dL (32.0-36.0); Mean Corpuscular Volume 86.6 fL (80.0-100.0); Mean Platelet Volume 9.8 fL (9.4-12.4); Monocytes # (auto) 0.95 K/uL (0.11-0.59); Monocytes % (auto) 8.9 %; Neutrophils # (auto) 6.94 K/uL (1.40-6.50); Neutrophils % (auto) 65.1 %; Platelet Count 203 K/uL (130-400); RDW Coefficient of Variation 12.4 % (11.5-14.5); Red Blood Count 4.24 M/uL (4.20-5.40); White Blood Count 10.66 K/ul (4.8-10.8)
[2024-02-16] MEDS: ACETAMINOPHEN 500 MG TAB PO SCH (06:37)
[2024-02-16] MEDS ORDERED: MoRPHine SULFATE PF 1 MG/ML 10 ML AMP/VIAL ONE (06:47)
[2024-02-16] MEDS ORDERED: DEXAMETHASONE SOD INJ 4 MG/ML VIAL ONE (06:47)
[2024-02-16] MEDS ORDERED: OXYTOCIN 10 UNITS/ML VIAL ONE (06:47)
[2024-02-16] MEDS ORDERED: fentaNYL citrate PF 100 MCG/2 ML VIAL ONE (06:47)
[2024-02-16] MEDS: LACTATED RINGER'S 1,000 ML IV SCH ×2 (06:58→11:06)
[2024-02-16] MEDS ORDERED: ONDANSETRON INJ 2 MG/ML 2 ML VIAL IV PRN (07:05)
[2024-02-16] MEDS ORDERED: NALOXONE HCL 0.4 MG/1 ML VIAL/CARP IV PRN (07:05)
[2024-02-16] MEDS ORDERED: ePHEDrine sulfate 50 MG/ML AMP IV PRN (07:05)
[2024-02-16] MEDS ORDERED: MoRPHine SULFATE 2 MG/ML CARP IV PRN (07:05)
[2024-02-16] MEDS ORDERED: NALOXONE HCL 1 MG in SODIUM CHLORIDE 0.9% 1,000 ML IV PRN (07:05)
[2024-02-16] MEDS ORDERED: diphenhydrAMINE 50 MG/ML VIAL IV PRN (07:05)
[2024-02-16] MEDS ORDERED: NALOXONE HCL 0.08 MG in SYRINGE 1.8 ML IV PRN (07:05)
[2024-02-16] MEDS ORDERED: NALBUPHINE HCL INJ 10 MG/ML AMP IV PRN (07:05)
[2024-02-16] MEDS ORDERED: DC INTRASPINAL MORPHINE SCH (07:15)
[2024-02-16] MEDS ORDERED: NO NARCOTICS OR SEDATIVES SCH (07:15)
--- NOTE | 2024-02-16 07:28 | History & Physical Bridge Note ---
Date of Service February 16, 2024 History & Physical Bridge Note I have examined the patient, reviewed the History & Physical and in the interval since the performance of the History & Physical I have noted the following changes of clinical significance: no changes noted
[2024-02-16] MEDS: CITRIC ACID/SODIUM CITRATE 15 ML UDC PO SCH (07:55)
[2024-02-16] MEDS: ceFAZolin 2000MG 2,000 MG/15 ML SYR IV ONE (08:11)
[2024-02-16] MEDS ORDERED: ONDANSETRON INJ 2 MG/ML 2 ML VIAL ONE (09:00)
--- NOTE | 2024-02-16 09:22 | Post Operative Brief Note ---
Immediate Post Op Note Date of Surgery February 16, 2024 Pre & Post Diagnosis Operation Date: 02/16/24 07:30 Pre-Op Diagnosis: 1. Term 2. Previous c/section X2 who desires repeat and bilateral tubal ligation Post-Op Diagnosis: Same I identified the patient and participated in the time-out.: Yes Procedure Operation Date: 02/16/24 07:30 Actual Procedures p Section with the of a live male child at 0842. - Jacqueline Alcaraz MD, FACOG s with Bilateral Tubal Ligation - Jacqueline Alcaraz MD, FACOG Surgeon Jacqueline Alcaraz MD, FACOG [place] [facility]anner Vaibhav Medina MD Quantitative Blood Loss (QBL) 106 Findings Consistent with Post-Op Diagnosis sessile fundal fibroid-1cm gravid uterus, bilateral ovaries and tubes are normal Specimens Specimen Description: A: Placenta-hold B: Cord blood C: Left fallopian tube D: Right fallopian tube Drains Olivier Catheter (olivier cath placed after spinal; clear yellow urine noted upon insertion. ) Anesthesia Type Spinal Complications none Disposition Accompanied Patient To Recovery: Yes Disposition: L&D
[2024-02-16] MEDS ORDERED: HYDROCORTISONE ACETATE 25 MG SUPP PR PRN (09:47)
[2024-02-16] MEDS ORDERED: CALCIUM CARBONATE 500 MG CHEWABLE TAB PO PRN (09:47)
[2024-02-16] MEDS ORDERED: SENNA 8.6 MG TAB PO PRN (09:47)
[2024-02-16] MEDS ORDERED: BENZOCAINE 20% SPRY 85 APPLN/85 GM CAN EXT PRN (09:47)
[2024-02-16] MEDS ORDERED: MAGNESIUM HYDROXIDE SUSP 30 ML UDC PO PRN (09:47)
--- NOTE | 2024-02-16 09:51 | Anesthesiology Progress Note ---
Date of Service February 16, 2024 Anesthesia Post Procedure Vital Signs Vital Signs: Temp Pulse Resp BP Pulse Ox 02/16/24 09:49 75 98 02/16/24 09:46 71 118/64 02/16/24 09:44 80 97 02/16/24 09:39 68 100 02/16/24 09:36 69 117/80 02/16/24 09:34 65 99 02/16/24 09:29 66 100 02/16/24 09:26 71 116/70 02/16/24 09:24 70 100 02/16/24 06:43 36.5 C 76 20 120/79 Transfer of Care Handoff Completed per policy Notes Mental Status: alert / awake / arousable and participated in evaluation Patient Amnestic to Procedure: Yes Nausea / Vomiting: adequately controlled Pain: adequately controlled Airway Patency, RR, SpO2: stable & adequate BP & HR: stable & adequate Hydration State: stable & adequate Neuraxial Anesthesia: was administered and sensory block is resolving Anesthetic Complications: no major complications apparent and Pt Satisfied with anesthetic care
[2024-02-16] MEDS: OXYTOCIN 20 UNITS/LR 1,000 ML IV SCH (10:00)
[2024-02-16] MEDS ORDERED: LACTATED RINGER'S 1,000 ML IV SCH (10:00)
[2024-02-16] MEDS: KETOROLAC 30 MG/ML VIAL IV SCH (10:17)
[2024-02-16] MEDS: MoRPHine SULFATE PF 1 MG/ML 10 ML AMP/VIAL INT SPINAL ONE (11:04)
[2024-02-16] MEDS: DIPHTHER/TETAN/PERTUS Vaccine (Tdap, Adol/Adult) 0.5mL IM ONE (11:04)
[2024-02-16] MEDS: HYDROmorphone INJ 0.5 MG/0.5 ML SYR IV PRN (11:19)
--- NOTE | 2024-02-16 12:00 | Operative Report ---
Post Operative Report Pre & Post Diagnosis Operation Date: 02/16/24 07:30 Pre-Op Diagnosis: 1. Term 2. Previous c/section X2 who desires repeat and bilateral tubal ligation Post-Op Diagnosis: Same I identified the patient and participated in the time-out.: Yes Procedure Operation Date: 02/16/24 07:30 Actual Procedures p Section with the of a live male child at 0842. - Jacqueline Alcaraz MD, FACOG s with Bilateral salpingectomies - Jacqueline Alcaraz MD, FACOG Surgeon Jacqueline Alcaraz MD, FACOG Hospital Manager Vaibhav Medina MD Quantitative Blood Loss (QBL) 106 Findings Consistent with Post-Op Diagnosis Gravid uterus consistent with a term in size-1 cm sessile fibroid noted on the right fundal area. Bilateral ovaries were but she is grossly normal. Specimens placenta to hold bilateral fallopian tubes Drains [place]ham to straight drainage Anesthesia Type Spinal Complications none Disposition Accompanied Patient To Recovery: Yes Disposition: L&D Indications Prior section x 2. Multiparity and unwanted fertility. Description of Procedure At the patient received adequate subarachnoid block she was prepped and draped in usual sterile fashion. Low transverse skin incision was made through her prior scar and carried to the fascia with the same scalpel. The fascial incision was then extended with Huang scissors. The edges were grasped with Gena clamps and the underlying rectus muscle was bluntly sharply dissected off of the overlying fascia. The rectus muscles were bluntly divided in the midline with a hemostat. At this point the peritoneum was entered. The inferior portion of the rectus muscles were then divided with a scalpel. After stretching the peritoneum, the bladder blade was then placed in the abdominal cavity. The bladder was then taken down off the anterior surface of the uterus and placed behind the bladder blade. Lower uterine segment was entered with a scalpel and extended transversely by stretching the incision in a cephalad and caudad direction. Membranes ruptured for thin meconium stained fluid. The male infant was delivered from the vertex presentation with moderate fundal pressure. After the head was delivered, the rest of the infant was delivered. There was vigorous crying and the was moving all 4 limbs. The cord was clamped and cut and the infant was handed off to rn rehabilitation in attendance with the nursery staff. Placenta was then expressed intact with a three-vessel cord. The uterus was exteriorized and covered with a clean lap sponge the uterine cavity was then explored and found be free of any retained tissue or membranes. The uterus was closed in a running locking imbricating fashion in 2 layers. Hemostasis was noted to be excellent. Attention was then turned to the salpingectomy. The left loping tube was identified and followed to its fimbriated end it was then removed using the LigaSure device to the level of its insertion on the uterus. The right fallopian tube was then identified and followed to its fimbriated end A2 was removed using the LigaSure device to its insertion on the uterus. Bleeding at the salpingectomy sites was satisfactory. The uterine incision was then examined and continue to have excellent hemostasis. The uterus was placed back inside the abdominal cavity, and gutters were explored and found to be free of any fluid or clot. There was a clot that was removed in the anterior cul-de-sac. The salpingectomy sites were examined & to continue to have excellent hemostasis. The rectus muscle were then brought together on the midline with individual stitches of 0 Monocryl. The fascia was closed in a running fashion with 0 Vicryl. After irrigating the subcutaneous layer, the skin edges were brought together with a subcuticular stitch of 4-0 Vicryl. Patient tolerated the procedure well and was stable upon arrival in labor and delivery. I attest to the content of the Intraoperative Record and any orders documented therein. Any exceptions are noted below. OB Procedure Charges [id number] Add on Tubal for C/S (bilateral salpingectomies)
[2024-02-16] MEDS: SIMETHICONE 80 MG CHEW PO SCH (12:53)
[2024-02-16] MEDS: ACETAMINOPHEN 325 MG TAB PO SCH (16:11)
[2024-02-16] MEDS: DOCUSATE SODIUM 100 MG CAP PO SCH (20:47)
[2024-02-17] MEDS ORDERED: diphenhydrAMINE Capsule 25 MG CAP PO PRN (01:06)
[2024-02-17] MEDS ORDERED: HYDROmorphone INJ 0.5 MG/0.5 ML SYR IV PRN (01:06)
[2024-02-17] MEDS ORDERED: PROMETHAZINE 12.5 MG/50.5 ML BAG IV PRN (01:06)
[2024-02-17] MEDS ORDERED: diphenhydrAMINE 50 MG/ML VIAL IV PRN (01:06)
[2024-02-17] MEDS ORDERED: ONDANSETRON INJ 2 MG/ML 2 ML VIAL IV PRN (01:06)
[2024-02-17 06:35] LABS: Basophils # (auto) 0.02 K/uL (0.00-0.20); Basophils % (auto) 0.2 %; Eosinophils # (auto) 0.06 K/uL (0.00-0.50); Eosinophils % (auto) 0.5 %; Hematocrit (blood only) 29.6 % (37.0-47.0); Hemoglobin 10.2 g/dl (12.0-16.0); Immature Granulocytes # (auto) 0.08 K/uL (0.01-0.20); Immature Granulocytes % (auto) 0.6 %; Lymphocytes # (auto) 2.43 K/uL (1.20-3.40); Lymphocytes % (auto) 18.7 %; Mean Corpuscular Hgb Conc 34.5 g/dL (32.0-36.0); Mean Corpuscular Volume 87.1 fL (80.0-100.0); Mean Platelet Volume 10.3 fL (9.4-12.4); Monocytes # (auto) 0.98 K/uL (0.11-0.59); Monocytes % (auto) 7.5 %; Neutrophils # (auto) 9.45 K/uL (1.40-6.50); Neutrophils % (auto) 72.5 %; Platelet Count 157 K/uL (130-400); RDW Coefficient of Variation 12.6 % (11.5-14.5); RDW Standard Deviation 39.9 fL (36.4-46.3); White Blood Count 13.02 K/ul (4.8-10.8)
[2024-02-17] MEDS: FERROUS SULFATE 325 MG TAB PO SCH (08:49)
[2024-02-17] MEDS: PRENATAL VITAMIN 1 TAB PO SCH (08:49)
[2024-02-17] MEDS ORDERED: KETOROLAC 30 MG/ML VIAL IV PRN (09:47)
--- NOTE | 2024-02-17 10:06 | Obstetrical Progress Note ---
Date of Service February 17, 2024 Assessment & Plan (1) Encounter for care and examination after delivery: satisfactory post-op progress continue current care plan Subjective Ambulation: ambulating normally Voiding: no voiding problems Passing Gas:: Yes Diet Tolerance:: regular diet Lochia:: Small Feeding Type:: breast feeding doing well this morning. was having muscle spasms in across abdomen and also in arms and neck yesterday but they have resolved after being able to rest overnight. slight bleeding from left side of incision last evening which is now just some spotting. Review of Systems All systems reviewed & are unremarkable except as noted in HPI & below Physical Exam Constitutional WD/WN, vitals as above Gastrointestinal (Abdomen) Inspection/Auscultation: + abdominal surgical incision (dry and intact. minimal drainage on dressing) Psychiatric A+Ox3, euthymic affect Genitourinary OB Exam Abdomen: + fundal height Fundus: + firm and + relation to umbilicus (at U) Results & Data Vital Signs (Past 12 Hours) Vital Signs Temp Pulse Resp BP Pulse Ox O2 Del Method 02/17/24 03:00 98.4 F 71 18 91/56 L 98 Room Air 02/17/24 01:00 18 94 02/17/24 00:00 18 93 02/16/24 23:20 18 95 02/16/24 23:20 98.2 F 66 18 106/68 95 Room Air 02/16/24 22:20 20 95
[2024-02-17] MEDS: IBUPROFEN 600 MG TAB PO SCH (10:51)
[2024-02-17] MEDS: oxyCODONE HCL IR 5 MG TAB (IMMEDIATE RELEASE) PO PRN (15:27)
[2024-02-17] MEDS: bisacodyL 5 MG TABEC PO SCH (20:17)
[2024-02-18 02:03] VITALS: RESP 18
[2024-02-18 06:36] LABS: Hematocrit (blood only) 30.5 % (37.0-47.0); Hemoglobin 10.5 g/dl (12.0-16.0)
--- NOTE | 2024-02-18 07:25 | Obstetrical Progress Note ---
Date of Service February 18, 2024 Assessment & Plan (1) Encounter for care and examination after delivery: 33 yo POD 2 from rLTCS/BTL, doing well -Meeting all pp milestones -A+/rubella immune/ -f/u 6 weeks for appt, desires dc home today Subjective Ambulation: ambulating normally Voiding: no voiding problems Passing Gas:: Yes Diet Tolerance:: regular diet Lochia:: Small Feeding Type:: breast feeding Pain well managed with medication Review of Systems Denies fevers, chills, n/v, SIMMONS, CP, SOB Physical Exam Constitutional WD/WN, vitals as above no acute distress Respiratory normal respiratory effort, lungs clear to auscultation Cardiovascular RRR, no murmur, no edema Gastrointestinal (Abdomen) Inspection/Auscultation: abdomen normal to inspection and + abdominal surgical scar; abdomen not distended Percussion/Palpation: abdomen soft; abdomen nontender fundus firm at umbilicus and NT Musculoskeletal BLE symmetric, nonerythematous, nontender Results & Data Vital Signs (Past 12 Hours) Vital Signs Temp Pulse Resp BP Pulse Ox O2 Del Method 02/17/24 23:30 98.2 F 72 18 117/71 97 Room Air
[2024-02-18 09:41] VITALS: PULSE 74; TEMP 98.8; O2SAT 96
[2024-02-18] MEDS ORDERED: bisacodyL 10 MG SUPP PR PRN (09:47)
[2024-02-18] MEDS: IBUPROFEN 600 MG TAB PO PRN (10:26)
[2024-02-18 11:12] VITALS: BP 117/71
[2024-02-18] MEDS ORDERED: ACETAMINOPHEN 325 MG TAB PO PRN (15:47)
--- NOTE | 2024-02-20 09:08 | Discharge Summary ---
Date of Service February 20, 2024 Admission HPI Per Admitting Provider Patient is a 33 yo EDC 02/17 who presents with 39 4/7 weeks for repeat LTCS and bilateral salpingectomy for unwanted fertility and multiparity. complicated by prior C/S x2 and AMA status. Ante-george testing has been reassuring. Admission Exam (Per Admitting) Constitutional WD/WN, vitals as above Gastrointestinal (Abdomen) Inspection/Auscultation: + abdominal surgical incision (dry and intact. minimal drainage on dressing) Psychiatric A+Ox3, euthymic affect Genitourinary OB Exam Abdomen: + fundal height and + vertex OB Exam Monitor Tracing: + external FHT monitor used, + external uterine monitor used and + category I Discharge Data Consultations 02/16/24 06:19 Consult Anesthesiology Stat Procedures Performed Operation Date: 02/16/24 07:30 Actual Procedures p Section with the of a live male child at 0842. - Jacqueline Alcaraz MD, FACOG s with Bilateral Tubal Ligation - Jacqueline Alcaraz MD, FACOG Hospital Course (1) Encounter for care and examination after delivery: 33 yo POD 2 from rLTCS/BTL, doing well -Meeting all pp milestones -A+/rubella immune/ -f/u 6 weeks for appt, desires dc home today Discharge Plan Discharge Items Patient Disposition: Home - Self-Care Reason For Visit: History of Section, Request for Steriliza Discharge Diagnosis: postop Activity: Per Instructions section Non-emergency contact: Manager Of Data Call non-emergency contact if: your pain is not controlled, your pain is worsening, your pain is unusual for you, you have a fever, your temperature is above 101, your wound has increased redness, your wound has increased drainage and your wound pain has increased Follow-up/Referrals: Alondra Escoto MD [Primary Care Provider] - Diet: Regular Addtl Attending Provider Instructions: ACTIVITY RECOMMENDATIONS: * Gradual return to full activity over the next 2-3 weeks. * No lifting - nothing heavier than baby over the next 2-3 weeks. * Do not engage in vigorous exercise, sexual activity or sports until cleared by your physician. * Do not drive or operate any motorized equipment until cleared by your physician. * You may shower/bathe daily. MEDICATIONS: For discomfort or pain, you may use Acetaminophen (Tylenol), Ibuprofen (Advil), or Naproxen (Aleve) following the package directions. For constipation you may use Colace following the package directions. BREAST CARE: If you are not breast feeding: * Wear a supportive bra 24 hours a day for one to two weeks. * Avoid stimulating your breasts and nipples as much as possible during the first few weeks after delivery. * When taking a shower, have the warm water hit your back, not breasts. * When your breasts feel full, apply ice packs. Usually three to four times a day helps ease the discomfort. * Take a mild pain medication (Tylenol / Motrin) when you are uncomfortable. If breast feeding: * Use breast milk to lubricate nipples. Lansinoh cream may be used for sore nipples. You do not need to remove cream prior to breast feeding. If using a different brand of cream, check the label for directions regarding removal of cream prior to nursing. * Wear a supportive bra. * If having problems with breasts or breast feeding, call a wellness consultant or your health care provider. SPECIAL CARE INSTRUCTIONS: When you are discharged from the hospital, it is important for you to follow the instructions listed below: * During the first week at home, you should be able to care for yourself and your baby. In addition, the usual light household activities are encouraged. * Limit your activities to the way you feel. Do not try to clean the house or move furniture. Be sensible. * If you actively engage in sports and have done so up until the time of your delivery, you may resume these activities as soon as you feel able. This may take up to one month or even longer. Use good judgment. * Continue to take your vitamins for at least six weeks after the of your baby. * Your diet need not be limited unless you were on a special diet before your delivery. Breast-feeding mothers need around 2500 calories per day and at least 64-80 ounces of fluid per day (8 to 10 glasses). * You should eat foods from the four major food groups. Crash diets or fad diets are to be avoided. Eating lean meats, fresh fruits and vegetables, low-fat dairy products, high fiber foods and a regular exercise program, will help you get back to your pre- weight without putting your health at risk. * Constipation is sometimes a problem after delivery. Take a mild laxative as needed. If breast feeding, Milk of Magnesia is acceptable to use. You may use a suppository or Fleets enema. * A daily shower or tub bath is suggested. Wash incision daily with warm soapy water and pat dry. It doesn't need to be covered unless drainage is present. * A bloody vaginal discharge will usually continue until around four weeks . A small amount of bleeding may continue for as long as six weeks. Vaginal discharge changes from the bright red bleeding after delivery to pink then brownish and finally yellowish-pink before becoming white and disappearing. * Bleeding may increase with activity. Your first period may come in 4-8 weeks. If you are breast feeding, your period may be delayed even longer. * [place] (sex) can begin whenever both you and your partner feel comfortable and do not have any form of genital infection. It is recommended that you wait at least six weeks for internal and external healing to occur. If you have questions, please talk to your health care practitioner. A condom should be used to prevent infection and . * Foreplay, gentle intercourse and lubrication is very important the first several times to prevent pain. A water-based lubricant such as K-Y jelly or Astroglide may be used. * If you have RH negative blood and your baby is RH positive, you will receive RHOGAM by injection prior to discharge. The nurse will give you a card to keep with you that has the date and place that you received RHOGAM after delivery. * During your care, you had a Rubella screen done to check for the presence of rubella antibodies in your blood. If your test was negative, you will receive a Rubella vaccine prior to discharge. This vaccine may cause a fever, soreness at the injection site and flu-like symptoms. If these symptoms persist, notify your health care practitioner. is not advised for one month after a Rubella vaccine. * Verbalizes understanding of car seat law as reviewed with patient nursing. * Car Seat hand-out given and reviewed with patient by nursing. * Shaken baby information reviewed with patient by nursing. Call you doctor if: * Heavy bleeding (saturating several pads an hour) or passing clots the size of your fist. * A fever >101 degrees F (38.3 degrees C) on two occasions four hours apart and/or chills. * Unusual pain in the pelvic or vaginal areas. * Call the doctor for any increased redness, drainage or swelling around the incision and any pain unrelieved by prescribed pain medication. * "Baby Blues" lasting longer than two weeks. If you have any questions or concerns, call your health care practitioner at . FOLLOW UP VISIT: * Please call the office at to schedule a 6 week examination. It is important you keep this appointment. It is important for you to make arrangements for either yearly or twice yearly check-ups thereafter. Pending Studies at Discharge: Yes Stand-Alone Forms: My [facility] Acronis, Smoking Cessation Medications and DC Order Prescriptions: New oxycodone 5 mg Tablet 5 - 10 mg PO Q3H PRN (Reason: pain) Qty: 20 0RF Continued 21-iron fu-folic acid [ Complete] 1 dose PO QAM Discharge Orders: Discharge Order (Routine); Ordered 02/18/24 Ordered By: Jie Alexandre/Other Patient Handouts: Preventing Deep Vein Thrombosis, Understanding Depression Admission Data Admit Date/Time: 02/16/24 06:21 Attending Provider: Jacqueline Alcaraz Admit Provider: Jacqueline Alcaraz Primary Care Provider: Alondra Escoto V. Other Providers: Audi Braga Other Interventions: Discharge Summary Assessment (RN) Last Done: 02/18/24 11:10 Coding Level of Care Code 18657 IN/OBS DISCH 30 MIN/LESS Diagnoses Encounter for care and examination after delivery Z39.2
== END 2024-02-18 12:00 | disposition home or self-care (01) | DRG 785 ==
LOC: 4S1 06:21 → EDSTATUS 07:30 → 4E2 12:32
PROC: M.PPTLD (2024-02-16 07:30)
DX: Z37.0 Single live birth; D25.9 Leiomyoma of uterus, unspecified; O34.13 Maternal care for benign tumor of corpus uteri, third trimester; Z3A.39 39 weeks gestation of pregnancy; Z30.2 Encounter for sterilization; O34.211 Maternal care for low transverse scar from previous cesarean delivery